=== PATIENT | female | born 1960 | race Caucasian/White ===

== ENCOUNTER → 2020-07-23 16:22 | Outpatient (BNVA) | payer OTHER, SELFPAY | PROVIDERS: PCP Internal Medicine; Referring Provider Internal Medicine; Visit Provider Internal Medicine Gastroenterology | DX: Z13.89 Encounter for screening for other disorder (principal) ==

== ENCOUNTER 2020-09-17 14:51 | Outpatient (REF) | payer OTHER, SELFPAY ==
[2020-09-17 18:23] LABS: COVID-19 Test Negative (Negative)
== END 2020-09-17 14:52 | disposition home or self-care (01) ==
LOC: HO.EMPCOV 14:51
PROVIDERS: PCP Internal Medicine; Visit Provider Internal Medicine
DX: Z20.828 Contact with and (suspected) exposure to other viral communicable diseases (principal)
CPT/HCPCS: 87635; C9803

== ENCOUNTER 2020-09-25 13:17 | Outpatient (REF) | payer OTHER, SELFPAY ==
[2020-09-25 13:49] LABS: COVID-19 Test Negative (Negative)
== END 2020-09-25 13:18 | disposition home or self-care (01) ==
LOC: HO.EMPCOV 13:17
PROVIDERS: Visit Provider Internal Medicine
DX: Z20.828 Contact with and (suspected) exposure to other viral communicable diseases (principal)
CPT/HCPCS: 87635; C9803

== ENCOUNTER → 2020-10-01 09:37 | Outpatient (BNVA) | payer OTHER, SELFPAY | PROVIDERS: PCP Internal Medicine; Visit Provider Orthopaedic Surgery | DX: M72.0 Palmar fascial fibromatosis [Dupuytren] (principal) | CPT/HCPCS: 99202 ==

== ENCOUNTER 2020-10-15 14:04 | Outpatient (REF) | payer OTHER, SELFPAY ==
[2020-10-15 14:27] LABS: COVID-19 Test Negative (Negative)
== END 2020-10-15 14:05 | disposition home or self-care (01) ==
LOC: HO.EMPCOV 14:04
PROVIDERS: Visit Provider Internal Medicine
DX: Z20.822 Contact with and (suspected) exposure to COVID-19 (principal)
CPT/HCPCS: 36415; 87635; C9803

== ENCOUNTER 2020-10-17 13:56 | Outpatient (REF) | payer OTHER, SELFPAY ==
[2020-10-17 14:13] LABS: COVID-19 Test Negative (Negative)
== END 2020-10-17 13:57 | disposition home or self-care (01) ==
LOC: HO.LAB 13:56
PROVIDERS: Visit Provider Internal Medicine
DX: Z20.822 Contact with and (suspected) exposure to COVID-19 (principal)
CPT/HCPCS: 36415; 87635; C9803

== ENCOUNTER 2020-10-22 10:32 | Emergency (ER) | payer OTHER, SELFPAY ==
[2020-10-22 10:43] VITALS: PULSE 100; RESP 17; TEMP 36.6; O2SAT 99; BMI 30.7
[2020-10-22 10:50] VITALS: BP 183/93
--- NOTE | 2020-10-22 11:15 | CT_ITS ---
EXAMINATION: CT ABDOMEN AND PELVIS WITH CONTRAST CLINICAL INFORMATION: Left-sided pain and bloating. Evaluate for diverticulitis. COMPARISON: Previous CT scan of the abdomen and pelvis October [address] colonoscopy January 2020 TECHNIQUE: Multidetector volumetric images were obtained from the superior aspect of the liver through the pubic symphysis following administration 85 mL of Omnipaque 350 intravenous contrast. Sagittal and coronal reformatted images were obtained on the technologist's workstation. Oral contrast: Yes This CT examination was performed using dose optimization techniques as appropriate, variously including the following: *Automated exposure control *Adjustment of mA and/or kV according to patient size (this includes techniques or standardized protocols for targeted exams where dose is matched to indication/reason for exam; i.e. extremities or head) *Use of iterative reconstruction technique DLP: 706 mGy-cm FINDINGS: LUNG BASES: The visualized lung bases are unremarkable. LIVER, GALLBLADDER, AND BILIARY TREE: The liver is low in attenuation suggestive of fatty infiltration. No focal liver lesion is seen. PANCREAS: Unremarkable. SPLEEN: Unremarkable. ADRENAL GLANDS: Unremarkable. KIDNEYS AND URETERS: There is a low-attenuation lesion in the upper pole the left kidney probably representing a cyst. The kidneys are otherwise unremarkable. BLADDER: Not optimally distended. GASTROINTESTINAL TRACT: There is diverticulosis of the colon. There is wall thickening of the sigmoid colon questionable for mild diverticulitis. No evidence of obstruction, perforation or abscess is seen. Small and large bowel is otherwise unremarkable. The appendix is unremarkable. ABDOMINAL WALL: No significant hernia is appreciated. LYMPH NODES: Normal. VASCULAR: Unremarkable. PELVIC VISCERA: The uterus is been removed. No pelvic mass is seen. OSSEOUS STRUCTURES: There are degenerative changes of the spine. CT/CT abdomen pelvis w con IMPRESSION: Diverticulosis and question mild sigmoid diverticulitis. Fatty liver. Small left renal cyst.
--- NOTE | 2020-10-22 11:15 | ECG_ITS ---
Test Reason : HTN Blood Pressure : / mmHG Vent. Rate : 087 BPM Atrial Rate : 087 BPM P-R Int : 154 ms QRS Dur : 082 ms QT Int : 384 ms P-R-T Axes : 032 000 -08 degrees QTc Int : 462 ms Normal sinus rhythm Nonspecific T wave abnormality Prolonged QT Abnormal ECG When compared with ECG of 10-OCT-2019 11:42, T wave inversion more evident in Inferior leads T wave inversion now evident in Anterior leads Referred By: Sandra Campo Electronically Signed By:Timothy Young
--- NOTE | 2020-10-22 11:16 | XR_ITS ---
EXAMINATION: XR CHEST CLINICAL INFORMATION: SOB. COMPARISON: None TECHNIQUE: Frontal view of the chest was obtained. FINDINGS: No significant abnormality is noted involving the heart, lungs, mediastinum, bony thorax or soft tissues. XR/XR chest 1V IMPRESSION: Unremarkable chest examination.
[2020-10-22 11:54] VITALS: RESP 16
[2020-10-22] MEDS: Morphine Sulfate 4 MG/ML CARTRIDGE 2 MG IVPUSH (11:54)
[2020-10-22] MEDS: 0.9 % Sodium Chloride 1,000 ML 999 ML IVCONT (11:55)
[2020-10-22] MEDS: ondansetron HCL 4 MG/2 ML VIAL IVPUSH (11:55)
[2020-10-22 12:00] LABS: MANUAL DIFF FLAG NO
[2020-10-22 12:01] LABS: Basophils Percent Auto 0.5 % (0-2); Eosinophils Absolute Auto 0.1 X10*3/uL (0.0-0.4); Eosinophils Percent Auto 1.6 % (0-4); Hematocrit 49.6 % (37-47); Hemoglobin 16.6 g/dl (12.0-16.0); Imm Gran Abs Auto 0.02 X10*3/uL (0.00-0.03); Imm Gran Pct Auto 0.3 % (0.0-0.4); Lymphocytes Absolute Auto 1.7 X10*3/uL (1.2-4.9); Mean Corpuscular HGB Conc 33.5 g/dl (31.0-35.0); Mean Corpuscular Volume 89.7 fL (80-98); Monocytes Absolute Auto 0.4 X10*3/uL (0.1-1.2); Monocytes Percent Auto 7.1 % (2-11); Neutrophils Absolute Auto 3.9 X10*3/uL (2.0-8.3); Neutrophils Percent Auto 63.5 % (45-73); Platelet Count 205 X10*3/uL (160-400); Red Blood Count 5.53 X10*6/uL (4.20-5.50); Red Cell Distribution Width 12.6 % (11.0-16.0); White Blood Count 6.2 X10*3/uL (4.8-10.8)
--- NOTE | 2020-10-22 12:09 | ED_ITS ---
HPI - General Adult General Chief complaint: General Medical Stated complaint: covid symptoms Time Seen by Provider: 10/22/20 10:55 Source: patient Mode of arrival: ambulatory History of Present Illness HPI narrative: 59-year-old female with a past medical history of cervical CA, diverticulosis/diverticulitis, GERD, hysterectomy, PUD, appendectomy presenting to the ED complaining of generalized fatigue/weakness, low-grade fever, sore thr oat, headache, fatigue/myalgias x1 week. Now reports upper abdominal discomfort/bloating and anorexia x4 days. Admits abdominal symptoms feel similar to prior diverticulitis. Admits recently tested negative for COVID-19 on Thursday and Thursday last week. Denies chest pain, dysuria/hematuria, buddy sea/vomiting, diarrhea Onset (ago): week(s) Related Data Home Medications Medication Instructions Recorded Confirmed Lactobacillus rhamnosus GG 10 1 cap PO DAILY 07/23/20 07/23/20 billion cell capsule simethicone 80 mg chewable tablet 80 mg PO TID-QID PRN 07/23/20 07/23/20 Previous Rx's Medication Instructions Recorded doxycycline hyclate 100 mg capsule 100 mg PO Q12H #14 cap 07/16/20 dicyclomine 10 mg capsule 10 mg PO BID #60 cap 10/16/20 amoxicillin-pot clavulanate 1 tab PO Q12H 7 Days #14 tab 10/22/20 [Augmentin] Allergies Allergy/AdvReac Type Severity Reaction Status Date / Time Compazine Allergy Unknown Unverified 02/10/20 00:00 Doxycycline Allergy Unknown Unverified 02/06/20 00:00 flagyl Allergy Unknown Unverified 02/06/20 00:00 penicillin G Allergy Unknown Verified 02/10/20 00:00 penicillin V Allergy Unknown Unverified 02/06/20 00:00 Penicillins [PENICILLINS] Allergy Unknown hives Unverified 06/14/20 15:37 prochlorperazine Allergy Unknown unknown Unverified 06/14/20 15:37 [From COMPAZINE] Sulfa (Sulfonamide Allergy Unknown swelling Unverified 06/14/20 15:37 Antibiotics) [SULFA (SULFONAMIDE ANTIBIOTICS)] sulfacetamide Allergy Unknown Verified 02/10/20 00:00 levofloxacin [From LEVAQUIN] AdvReac Unknown LEVAQUIN Unverified 06/14/20 15:37 metronidazole [From FLAGYL] AdvReac Unknown ELEVATED Unverified 06/14/20 15:37 LIVER ENZYMES levofloxacin Allergy Unknown anaphylaxis Uncoded 02/06/20 00:00 Review of Systems Review of Systems: Constitutional: No Weight loss, + Fever, + Chills, No Night Sweats, + Fatigue, + Malaise ENT/Mouth: No Hearing loss, No Ear Pain, No Nasal Congestion, + sore throat, No Rhinorrhea Eyes: No Eye Pain, No Swelling, No Redness, No Foreign Body, No Discharge, No Vision Changes Cardiovascular: No Chest Pain, + SOB, No Dyspnea on Exertion Respiratory: No Cough, No Sputum Gastrointestinal: No Nausea, No Vomiting, No Diarrhea, + Constipation, + Abdominal pain Genitourinary: No irregular bleeding, No Dysuria, No Urinary Frequency, No Hematuria Musculoskeletal: No joint pain, No Myalgias, No Joint Swelling Skin: No Skin Lesions, No rash Neuro: +Weakness, No Numbness, +Headache Yes all other systems are reviewed and are negative [facility] Past Medical History Attestation statement: The following information was validated with the patient. Medical History (Updated 10/22/20 @ 14:29 by REBECCA Romero) Allergic rhinitis Cervical cancer (~08/2018) Chronic diarrhea CTS (carpal tunnel syndrome) Diverticulosis GERD (gastroesophageal reflux disease) History of duodenal ulcer Peptic ulcer disease (~2004) Surgical History (Updated 07/23/20 @ 16:25 by Silvia Peralta CMA) H/O: hysterectomy History of colonoscopy Hx of endoscopy S/P appendectomy S/P bilateral breast reduction (~07/2019) Family History Family History (Updated 07/23/20 @ 16:27 by Silvia Peralta CMA) Father Family history of Alzheimer's disease Mother History of high blood pressure History of depression Social History Social History (Updated 10/01/20 @ 09:49 by Nevaeh Johnson CMA) Alcohol intake: current Alcohol intake frequency: does not drink Smoking Status: Former smoker Use of substances other than those prescribed or required for medical reasons: No Advance Directives: No Advance Directives Information Provided: No Current occupational status: employed Current occupation: [employer] - Right [employer] Physical Exam Vital Signs: Vital Signs: Last Vital Signs Temp 98 F 10/22/20 10:43 Pulse 90 10/22/20 13:41 Resp 16 10/22/20 13:41 BP 136/81 10/22/20 13:41 Pulse Ox 98 10/22/20 13:42 Body Mass Index 30.7 Const: General: cooperative, healthy appearing, comfortable and no acute distress Orientation/consciousness: patient oriented x3 Limitations: no limitations HENMT: Head: Yes normal to inspection Ears: hearing grossly normal bilaterally General nose exam: Normal external nose present Face and sinus: Yes normal facial exam Eyes: General: appearance normal, both eyes and all related structures EOM: EOMs intact bilaterally Neck: Neck: Yes normal visual inspection and Yes no meningeal signs Resp: Effort & Inspection: normal respiratory effort Auscultation: clear to auscultation bilaterally, no rales, no rhonchi and no wheezes Cardio: Rate: regular rate Heart sounds: S1 normal heart sound present and S2 normal heart sound present GI: Inspection: Yes normal to inspection Palpation (GI): Soft to palpation, Tenderness to palpation present (GI) in the epigastrum, in the LLQ and in the LUQ, no guarding and not rigid : General: Yes no CVA tenderness Back/Spine/Pelvis: Back: no CVA tenderness Skin: Rashes: no rashes Wounds: no wounds Neuro: General: patient oriented x3 and no meningeal signs Gait exam (Neur o): Normal gait present Extrem: Other: No LE edema or calf tenderness General: Yes normal to inspection Course Course Course Narrative: -one staff member had accidental needlestick while trying to obtain blood work from this patient. Will obtain HIV/hepatitis antibodies. Patient is agreeable XR chest 1V IMPRESSION: Unremarkable chest examination. * Labs and COVID-19/influenza/RSV unremarkable CT abdomen pelvis w con IMPRESSION: Diverticulosis and question mild sigmoid diverticulitis. Fatty liver. Small left renal cyst >> results discussed with patient including worrisome signs and symptoms and strict return precautions. Patient admits she has taken Augmentin in the past without difficulty/allergic reaction. Due to allergies will DC with Augmentin. Medical Decision Making [facility] Narrative Medical decision making narrative: 59-year-old female with a past medical history of cervical CA, diverticulosis/diverticulitis, GERD, hysterectomy, PUD, appendectomy presenting to the ED complaining of generalized fatigue/weakness, low-grade fever, sore throat, headache, fatigue/myalgias x1 week. Now reports upper abdominal discomfort/bloating and anorexia x4 days. On exam VSS, NAD/nontoxic-appearing, physical exam as above. Concern for viral syndrome/COVID-19 vs dehydration/metabolic abnormalities vs diverticulitis vs ?Pancreatitis vs/constipation. Plan: EKG, labs, UA, CXR, CT abdomen/pelvis, IVF/symptomatic treatment, reassess Lab Data Result diagrams: 10/22/20 11:51 10/22/20 11:51 Labs: Lab Results 10/22/20 10/22/20 10/22/20 Range/Units 11:51 11:51 11:51 WBC 6.2 (4.8-10.8) X10*3/uL RBC 5.53 H (4.20-5.50) X10*6/uL Hgb 16.6 H (12.0-16.0) g/dl Hct 49.6 H (37-47) % MCV 89.7 (80-98) fL MCH 30.0 (27.0-33.0) pg MCHC 33.5 (31.0-35.0) g/dl RDW 12.6 (11.0-16.0) % Plt Count 205 (160-400) X10*3/uL MPV 9.0 L (9.4-12.3) fL Immature Gran % (Auto) 0.3 (0.0-0.4) % Neut % (Auto) 63.5 (45-73) % Lymph % (Auto) 27.0 (20-40) % Mccreary % (Auto) 7.1 (2-11) % Eos % (Auto) 1.6 (0-4) % Baso % (Auto) 0.5 (0-2) % Lymph # (Auto) 1.7 (1.2-4.9) X10*3/uL Mccreary # (Auto) 0.4 (0.1-1.2) X10*3/uL Eos # (Auto) 0.1 (0.0-0.4) X10*3/uL Baso # (Auto) 0.0 (0.0-0.2) X10*3/uL Abs Immat Gran (auto) 0.02 (0.00-0.03) X10*3/uL Absolute Neuts (auto) 3.9 (2.0-8.3) X10*3/uL Absolute Nucleated RBC 0.000 (0.0-0.012) X10*3/uL Nucleated RBC % (auto) 0.0 (0.0-0.2) /100WBC Hold Blue Top Sodium 138 (135-145) mmol/L Potassium 5.0 (3.3-5.1) mmol/l Chloride 104 (96-108) mmol/L Carbon Dioxide 21 L (22-29) mmol/L Anion Gap 18 (12-20) BUN 14 (9-16) mg/dL Creatinine 0.92 (0.5-1.4) mg/dL Estim Creat Clear Calc 71.2 Estimated GFR > 60 Random Glucose 105 (60-115) mg/dL Calcium 9.4 (8.4-10.2) mg/dL Magnesium 2.1 (1.6-2.6) mg/dL Ferritin 138 (10-250) ng/mL Total Bilirubin 0.7 (0.0-1.0) mg/dL Direct Bilirubin 0.2 (0.0-0.5) mg/dL AST 30 (5-31) U/L ALT 25 (0-31) U/L Alkaline Phosphatase 93 (39-117) U/L Lactate Dehydrogenase 273 H (122-220) U/L C-Reactive Protein 0.38 (< or = 0.50) mg/dL Total Protein 7.8 (6.5-8.0) g/dL Albumin 4.6 (3.5-5.0) g/dL Lipase 59 (8-78) U/L Procalcitonin ng/mL Coronavirus (PCR) (Negative) Influenza Type A (PCR) (Negative) Influenza Type B (PCR) (Negative) RSV RNA Qual (PCR) (Negative) 10/22/20 10/22/20 10/22/20 Range/Units 11:51 11:51 12:30 WBC (4.8-10.8) X10*3/uL RBC (4.20-5.50) X10*6/uL Hgb (12.0-16.0) g/dl Hct (37-47) % MCV (80-98) fL MCH (27.0-33.0) pg MCHC (31.0-35.0) g/dl RDW (11.0-16.0) % Plt Count (160-400) X10*3/uL MPV (9.4-12.3) fL Immature Gran % (Auto) (0.0-0.4) % Neut % (Auto) (45-73) % Lymph % (Auto) (20-40) % Mccreary % (Auto) (2-11) % Eos % (Auto) (0-4) % Baso % (Auto) (0-2) % Lymph # (Auto) (1.2-4.9) X10*3/uL Mccreary # (Auto) (0.1-1.2) X10*3/uL Eos # (Auto) (0.0-0.4) X10*3/uL Baso # (Auto) (0.0-0.2) X10*3/uL Abs Immat Gran (auto) (0.00-0.03) X10*3/uL Absolute Neuts (auto) (2.0-8.3) X10*3/uL Absolute Nucleated RBC (0.0-0.012) X10*3/uL Nucleated RBC % (auto) (0.0-0.2) /100WBC Hold Blue Top SEE NOTE Sodium (135-145) mmol/L Potassium (3.3-5.1) mmol/l Chloride (96-108) mmol/L Carbon Dioxide (22-29) mmol/L Anion Gap (12-20) BUN (9-16) mg/dL Creatinine (0.5-1.4) mg/dL Estim Creat Clear Calc Estimated GFR Random Glucose (60-115) mg/dL Calcium (8.4-10.2) mg/dL Magnesium (1.6-2.6) mg/dL Ferritin (10-250) ng/mL Total Bilirubin (0.0-1.0) mg/dL Direct Bilirubin (0.0-0.5) mg/dL AST (5-31) U/L ALT (0-31) U/L Alkaline Phosphatase (39-117) U/L Lactate Dehydrogenase (122-220) U/L C-Reactive Protein (< or = 0.50) mg/dL Total Protein (6.5-8.0) g/dL Albumin (3.5-5.0) g/dL Lipase (8-78) U/L Procalcitonin 0.02 ng/mL Coronavirus (PCR) NEGATIVE (Negative) Influenza Type A (PCR) NEGATIVE (Negative) Influenza Type B (PCR) NEGATIVE (Negative) RSV RNA Qual (PCR) NEGATIVE (Negative) Discharge Plan Discharge Clinical Impression: Diverticulitis of sigmoid colon Patient Disposition: Home, Self-Care Instructions: Diverticulitis (ED) Additional Instructions: You have diverticulitis your sigmoid colon. Augmentin as an antibiotic, take as prescribed. You should practice a clear liquid diet for the next 3 days. Make sure your staying hydrated at home really push the fluids Take Tylenol and Motrin for pain If her symptoms persist or worsen, your unable to eat or drink, high fevers, or pain becomes unbearable return to the ED Follow-up with her GI doctor Prescriptions: New amoxicillin-pot clavulanate [Augmentin] 875-125 mg tablet 1 tab PO Q12H 7 Days Qty: 14 RF: 0 No Action doxycycline hyclate 100 mg capsule 100 mg PO Q12H Qty: 14 RF: 0 dicyclomine 10 mg capsule 10 mg PO BID Qty: 60 RF: 2 simethicone [Gas Relief 80 (simethicone)] 80 mg tablet,chewable 80 mg PO TID-QID PRNRF: 0 Culturelle 10 billion cell capsule 1 cap PO DAILY RF: 0 Referrals: Mynor Bravo MD [Physician] - 5 days
[2020-10-22 12:31] LABS: Lipase 59 U/L (8-78)
[2020-10-22 12:33] LABS: Alanine Aminotransferase 25 U/L (0-31); Albumin Level 4.6 g/dL (3.5-5.0); Alkaline Phosphatase 93 U/L (39-117); Anion Gap 18 (12-20); Aspartate Amino Transferase 30 U/L (5-31); Bilirubin Direct 0.2 mg/dL (0.0-0.5); Bilirubin Total 0.7 mg/dL (0.0-1.0); Blood Urea Nitrogen 14 mg/dL (9-16); C Reactive Protein 0.38 mg/dL (< or = 0.50); Calcium 9.4 mg/dL (8.4-10.2); Carbon Dioxide 21 mmol/L (22-29); Chloride 104 mmol/L (96-108); Creatinine Clr Calc Pharmacy 71.2; Estimated Glomerular Filt Rate > 60; Glucose Random 105 mg/dL (60-115); Lactate Dehydrogenase 273 U/L (122-220); Magnesium 2.1 mg/dL (1.6-2.6); Sodium 138 mmol/L (135-145); Total Protein 7.8 g/dL (6.5-8.0)
--- NOTE | 2020-10-22 12:42 | PC.NURSE ---
22 ga iv established lla approx 1200 pt reports pain is better it took the edge off pt states i usually get a few doses when this happens pt has no abd guarding or facial grimace. awaiting ct.
[2020-10-22 12:53] LABS: Ferritin 138 ng/mL (10-250)
[2020-10-22 12:54] LABS: Procalcitonin 0.02 ng/mL
[2020-10-22 12:57] LABS: Influenza A PCR NEGATIVE (Negative); Influenza B PCR NEGATIVE (Negative); Resp Syncy Virus RNA Qual PCR NEGATIVE (Negative); SARS COV2 PCR INHOUSE NEGATIVE (Negative)
[2020-10-22] MEDS: iohexoL 350 MG/ML 100 ML INFUS..BTL 85 ML IV (13:11)
[2020-10-22] MEDS: Morphine Sulfate 2 MG/ML CARTRIDGE IVPUSH (13:39)
[2020-10-22] MEDS: Metoclopramide HCl 10 MG/2 ML VIAL IVPUSH (13:40)
[2020-10-22 13:41] VITALS: BP 136/81; PULSE 90; RESP 16; O2SAT 98
[2020-10-22 13:42] VITALS: PULSE 89; O2SAT 98
[2020-10-22 14:25] LABS: HBc Num1 0.11 S/CO (0.00-0.79); HBsAGNum1 0.18 S/CO (0.00-0.99); Hepatitis B Core Antibody Nonreactive (Nonreactive); Hepatitis B Surface Antigen Negative (Negative); ~HepC Num1 0.18 S/CO (0.00-0.79); ~Hepatitis C Antibody Nonreactive (Nonreactive)
[2020-10-22 14:26] LABS: HIV AB/AG Nonreactive (Nonreactive); HIV Num 1 0.07 S/CO (0.00-0.99)
== END 2020-10-22 14:50 | disposition home or self-care (01) ==
PROVIDERS: Physician Assistant; Emergency Provider Internal Medicine; PCP Internal Medicine
DX: K57.32 Diverticulitis of large intestine without perforation or abscess without bleeding (principal); Z20.822 Contact with and (suspected) exposure to COVID-19; Z85.41 Personal history of malignant neoplasm of cervix uteri; K21.9 Gastro-esophageal reflux disease without esophagitis
CPT/HCPCS: 0241U; 36415; 71045; 74177; 80048; 80076; 82728; 83615; 83690; 83735; 84145; 85025; 86140; 86704; 86803; 87340; 87389; 93005; 96361; 96374; 96375; 96376; 99285; J2270; J2405; J2765; Q9967

== ENCOUNTER 2020-11-28 15:53 | Outpatient (REF) | payer OTHER, SELFPAY ==
--- NOTE | ~2020-11-28 | MM_ITS ---
EXAMINATION: MM SCREENING DIGITAL BREAST TOMOSYNTHESIS, BILATERAL CLINICAL INFORMATION: Screening. Asymptomatic. The lifetime risk of breast cancer based on the Tyrer-Cuzick Model is 12.9%. COMPARISON: Mammography: November 28, 2019 and studies dating back to October 19, 2018 TECHNIQUE: Digital breast tomosynthesis is performed in both the craniocaudal and mediolateral oblique views along with computer-aided detection (CAD). Synthesized 2D images are generated from the tomosynthesis. FINDINGS: There are scattered areas of fibroglandular density (ACR BI-RADS breast composition Category b). No new abnormal dominant mass or suspicious grouping of microcalcifications identified. Bilateral regions of scarring related to breast reduction surgery again seen. MM/MM tomosynthesis screening BI IMPRESSION: There are no significant changes from prior study. ASSESSMENT: BI-RADS 2: Benign RECOMMENDATION: Routine annual mammography screening. This patient's information was entered into a reminder system with a target due date for their next mammogram.
== END 2020-11-28 15:54 | disposition home or self-care (01) ==
LOC: HO.MAMMO 15:53
PROVIDERS: PCP Internal Medicine; Visit Provider Internal Medicine
DX: Z12.31 Encounter for screening mammogram for malignant neoplasm of breast (principal)
CPT/HCPCS: 77063; 77067

== ENCOUNTER 2021-11-29 13:46 | Outpatient (REF) | payer OTHER, SELFPAY ==
[2021-11-30 06:22] LABS: CT PCR NOT DETECTED (Not Detect.); NG PCR NOT DETECTED (Not Detect.)
== END 2021-11-29 13:47 | disposition home or self-care (01) ==
LOC: HO.LAB 13:46
PROVIDERS: PCP Nurse Practitioner Acute Care; Visit Provider Advanced Practice Midwife
DX: Z01.411 Encounter for gynecological examination (general) (routine) with abnormal findings (principal); N94.9 Unspecified condition associated with female genital organs and menstrual cycle; R39.89 Other symptoms and signs involving the genitourinary system
CPT/HCPCS: 87491; 87591

== ENCOUNTER → 2021-12-09 10:14 | Outpatient (BNVA) | payer OTHER, SELFPAY | PROVIDERS: PCP Nurse Practitioner Acute Care; Visit Provider Internal Medicine Gastroenterology | DX: K57.90 Diverticulosis of intestine, part unspecified, without perforation or abscess without bleeding (principal) | CPT/HCPCS: 99212 ==

== ENCOUNTER 2021-12-11 14:35 | Outpatient (REF) | payer OTHER, SELFPAY ==
--- NOTE | ~2021-12-11 | US_ITS ---
EXAMINATION: US PELVIS CLINICAL INFORMATION: Pelvic pressure. COMPARISON: CT abdomen and pelvis 10/22/2020. TECHNIQUE: Ultrasound of the pelvis is performed using both transabdominal and transvaginal transducers along with Doppler. Transvaginal imaging is performed due to inadequate visualization transabdominally. FINDINGS: Uterus: Surgically absent. Adnexa: The left ovary is not seen. The right ovary appears normal measuring 1.0 x 0.6 x 0.9 cm for a volume of 0.3 mL. No free fluid is present in the cul-de-sac. US/US pelvic and transvaginal IMPRESSION: No significant abnormality is detected. The left ovary is not seen and the uterus has been surgically removed.
== END 2021-12-11 14:36 | disposition home or self-care (01) ==
LOC: HO.HMGCX 14:35
PROVIDERS: PCP Internal Medicine; Visit Provider Obstetrics & Gynecology
DX: R39.89 Other symptoms and signs involving the genitourinary system (principal)
CPT/HCPCS: 76830; 76856

== ENCOUNTER 2023-04-29 08:00 | Outpatient (AMB) | payer OTHER, SELFPAY ==
--- NOTE | 2023-04-29 07:56 | MHC.OFFWIV ---
Intake Vital Signs 04/29/23 08:03 BP 136/82 Blood Pressure Location Rt brachial Position Sitting Pulse 95 Pulse Source Pulse Oximeter Temp 98.6 F Temp Source Oral Pulse Oximetry (%) 96 Oxygen Delivery Method Room Air Intake Visit Reasons: EST/uti Patient Tobacco Use Status: Never used Tobacco Allergies doxycycline Allergy (Unknown, Verified 04/29/23 08:05) Unknown metronidazole [From Flagyl] Allergy (Unknown, Verified 04/29/23 08:05) Elevated liver enzymes penicillin G Allergy (Unknown, Verified 04/29/23 08:05) Unknown penicillin V Allergy (Unknown, Verified 04/29/23 08:05) Unknown Penicillins [PENICILLINS] Allergy (Unknown, Verified 04/29/23 08:05) Hives prochlorperazine [From Compazine] Allergy (Unknown, Verified 04/29/23 08:05) Unknown levofloxacin [From Levaquin] Adverse Reaction (Unknown, Verified 04/29/23 08:05) Unknown sulfacetamide Adverse Reaction (Unknown, Verified 04/29/23 08:05) Unknown HPI HPI Comments History of Present Illness Details [id number] 62-year-old female history of GERD, peptic ulcer disease, diverticulitis presents with UTI symptoms for a few days worsening. Patient has been taking [id number] azo with little to no relief. She reports urinary frequency, urgency, dysuria. Patient tells me that this feels like her typical UTI. Denies fevers, chills, flank pain, nausea, vomiting, abdominal pain, chest pain, shortness of breath. Physical exam benign Likely UTI versus cystitis. Unlikely pyelonephritis, sepsis. No signs of obstructing uropathy. No signs of acute abdomen. Will discharge with Bactrim. Educated patient on diagnosis and treatment plan, answered all question, patient verbalizes understanding. At this time patient will be discharged home, advised to return with new or worsening symptoms. Educated on worrisome signs and symptoms and when to return. At this time I feel comfortable discharge home. [facility] Medical History Allergic rhinitis Cervical cancer (~08/2018) Chronic diarrhea CTS (carpal tunnel syndrome) Diverticulosis GERD (gastroesophageal reflux disease) History of duodenal ulcer Peptic ulcer disease (~2004) Surgical History H/O: hysterectomy History of colonoscopy Hx of endoscopy S/P appendectomy S/P bilateral breast reduction (~07/2019) Family History Father Family history of Alzheimer's disease Mother History of high blood pressure History of depression Social History Housing: House Alcohol intake: current Alcohol intake frequency: holidays/special occasions only Patient Tobacco Use Status: Never used Tobacco Second Hand Smoke Exposure: Yes Current occupational status: employed Cognitive needs: No Hearing needs: No Vision needs: No Female Reproductive History Menstrual Age of Menarche: 10 Review of Systems Const Details: Constitutional : No Weight loss, No Fever, No Chills, No Fatigue, No Malaise ENT/Mouth : No sore throat, No Rhinorrhea Eyes: No Eye Pain, No Swelling, No Redness Cardiovascular : No Chest Pain, No SOB, No Dyspnea on Exertion, No Orthopnea, No Edema, No Palpitations Respiratory : No Cough, No Sputum, No Wheezing Gastrointestinal : No Nausea, No Vomiting, No Diarrhea, No Constipation, No abdominal Pain, No Hematochezia, No Melena Genitourinary : No Dysuria, No Urinary Frequency, No Hematuria, Musculoskeletal : No joint pain, No Myalgias, No Joint Swelling Skin : No Skin Lesions, No rash Neuro : No Weakness, No Numbness, No Dizziness, No Headache Psych : No Anxiety/Panic, No Depression All other systems reviewed and are negative All systems reviewed & are unremarkable except as noted in HPI and below Physical Exam Vital Signs: Last Vital Signs Temp 98.6 F 04/29/23 08:03 Pulse 95 04/29/23 08:03 BP 136/82 04/29/23 08:03 Pulse Ox 96 04/29/23 08:03 Oxygen Delivery Method Room Air 04/29/23 08:03 vss Appearance: Alert.? Oriented X3.? No acute distress.? Head: Normocephalic, atraumatic, no step-offs or deformities Eyes: Pupils equal, round and reactive to light.? ENT: Pharynx normal.? Neck: Normal inspection.? Neck supple.? CVS: Normal heart rate and rhythm.? Pulses normal.? Respiratory: No respiratory distress.? Breath sounds normal.? Abdomen: Soft and nontender.? Skin: Skin warm and dry.? Normal skin color.? Normal skin turgor.? Extremities: No lower extremity edema.? No calf ttp. 5/5 strength to bilateral upper and lower extremities Back: No CVA tenderness bilaterally Neuro: Oriented X 3.? No motor deficit.? No sensory deficit. CN 2-12 intact Assessment & Plan Assessment & Plan (1) Urinary tract infection: Code(s): N39.0 - Urinary tract infection, site not specified Plan Take your medications as prescribed. If you were prescribed antibiotics today, it is important that you take your medication to their entirety, do not skip any doses, do not finish them early. Follow-up with your primary care provider this week. Return to the emergency department with new or worsening symptoms. Such as fevers, chills, chest pain, shortness of breath, nausea, vomiting, dizziness, headache, vision changes, lethargy In case of emergency call 911 Medications: New cefuroxime axetil 250 mg PO BID 14 tabs 0RF 7 days Coding Level of Care Code Est Pt Level 3 (10876) Diagnoses Urinary tract infection N39.0
[2023-04-29 08:03] VITALS: BP 136/82; PULSE 95; TEMP 37; O2SAT 96
== END 2023-04-29 08:20 | disposition home or self-care (01) ==
PROVIDERS: PCP Internal Medicine; Visit Provider Physician Assistant
DX: N39.0 Urinary tract infection, site not specified (principal); Z13.9 Encounter for screening, unspecified
CPT/HCPCS: 81003; 99213

== ENCOUNTER 2023-05-22 08:23 | Outpatient (AMB) | payer OTHER, SELFPAY ==
--- NOTE | 2023-05-22 09:32 | MHC.OFFWIV ---
Intake Vital Signs 05/22/23 09:38 Weight 199 lb BP 120/90 H Blood Pressure Location Rt brachial Position Sitting Pulse 76 Pulse Source Pulse Oximeter Temp 98.2 F Temp Source Oral Pulse Oximetry (%) 98 Oxygen Delivery Method Room Air Intake Visit Reasons: EP, Anxiety and UTI? [phone] Intake Note: Patient here as she has been having work stress and her anxiety has been very bad. she is has also been having UTI symptoms such as burning, pressure which all started this morning. Patient Tobacco Use Status: Never used Tobacco Allergies doxycycline Allergy (Unknown, Verified 05/22/23 10:16) Unknown metronidazole [From Flagyl] Allergy (Unknown, Verified 05/22/23 10:16) Elevated liver enzymes penicillin G Allergy (Unknown, Verified 05/22/23 10:16) Unknown penicillin V Allergy (Unknown, Verified 05/22/23 10:16) Unknown Penicillins [PENICILLINS] Allergy (Unknown, Verified 05/22/23 10:16) Hives prochlorperazine [From Compazine] Allergy (Unknown, Verified 05/22/23 10:16) Unknown levofloxacin [From Levaquin] Adverse Reaction (Unknown, Verified 05/22/23 10:16) Unknown sulfacetamide Adverse Reaction (Unknown, Verified 05/22/23 10:16) Unknown Medication List - Last Reconciled 05/22/23 by Thomas Jacome MD dicyclomine 10 mg PO BID esomeprazole magnesium (Nexium) 40 mg PO DAILY fexofenadine (Dunia Allergy) 60 mg PO BID Lactobacillus rhamnosus GG (Culturelle) 1 cap PO DAILY vitamin B complex (B Complex-Vitamin B12 tablet) 1 tab PO DAILY Do you need a note to return to daycare/school/sports/work: Yes HPI EP, Anxiety and UTI? [phone] HPI Details 62-year-old female presents to the office for a sick visit. Patient is reporting symptoms of anxiety and needs assistance. 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 She would like to get some medications till she sees her primary care provider. Woke up with this morning with a bladder infection. Increased density and urgency. [facility] Medical History Allergic rhinitis Cervical cancer (~08/2018) Chronic diarrhea CTS (carpal tunnel syndrome) Diverticulosis GERD (gastroesophageal reflux disease) History of duodenal ulcer Peptic ulcer disease (~2004) Surgical History H/O: hysterectomy History of colonoscopy Hx of endoscopy S/P appendectomy S/P bilateral breast reduction (~07/2019) Family History Father Family history of Alzheimer's disease Mother History of high blood pressure History of depression Social History Housing: House Alcohol intake: current Alcohol intake frequency: holidays/special occasions only Patient Tobacco Use Status: Never used Tobacco Second Hand Smoke Exposure: Yes Current occupational status: employed Cognitive needs: No Hearing needs: No Vision needs: No Female Reproductive History Menstrual Age of Menarche: 10 Physical Exam Vital Signs: Last Vital Signs Temp 98.2 F 05/22/23 09:38 Pulse 76 05/22/23 09:38 BP 120/90 H 05/22/23 09:38 Pulse Ox 98 05/22/23 09:38 Oxygen Delivery Method Room Air 05/22/23 09:38 Const General: cooperative and healthy appearing Nutritional Appearance: well nourished Orientation/consciousness: patient oriented x3 Limitations: no limitations HEENT Head: Yes normal to inspection Eyes General: appearance normal, both eyes and all related structures Neck Neck: Yes normal visual inspection Chest Chest palpation & inspection: normal palpation of entire chest wall Resp Effort & Inspection: normal respiratory effort Neuro General: patient oriented x3 Results AMB Urinalysis, Automated UA Leukoctes 0 Rukhsana/uL Last Edit by SOLO Mcelroy on 05/22/23 09:55 UA Nitrite Negative Last Edit by SOLO Mcelroy on 05/22/23 09:55 UA Urobilinogen 0.2 mg/dL Last Edit by SOLO Mcelroy on 05/22/23 09:55 UA Protein 0 mg/dL Last Edit by SOLO Mcelroy on 05/22/23 09:55 UA pH 6.0 Last Edit by SOLO Mcelroy on 05/22/23 09:55 UA Blood 0 Shin/uL Last Edit by [facility], [facility] on 05/22/23 09:55 UA Specific [place] 1.015 Last Edit by Wandy-Merary [facility], [facility] on 05/22/23 09:55 UA Ketone Negative [facility] on 05/22/23 09:55 UA Bilirubin 0 mg/dL Last Edit [facility] on 05/22/23 09:55 UA Glucose 0 mg/dL Last [facility] on 05/22/23 09:55 Results Reviewed Results Reviewed: Laboratory Last Values Urine pH (Auto) 6.0 05/22/23 09:54 Specific [place] (Auto) 1.015 05/22/23 09:54 Urine Protein (Auto) 0 mg/dL 05/22/23 09:54 Glucose (UA)(Auto) 0 mg/dL 05/22/23 09:54 Urine Ketones (Auto) Negative 05/22/23 09:54 Urine Blood (Auto) 0 Shin/uL 05/22/23 09:54 Urine Nitrite (Auto) Negative 05/22/23 09:54 Urine Bilirubin (Auto) 0 mg/dL 05/22/23 09:54 Urine Urobilinogen (Auto) 0.2 mg/dL 05/22/23 09:54 Leukocyte Esterase (Auto) 0 Rukhsana/uL 05/22/23 09:54 Assessment & Plan Assessment & Plan (1) Urinary tract infection: Code(s): N39.0 - Urinary tract infection, site not specified Plan: Take antibiotics and Pyridium as directed. Increase fluid intake. If symptoms of burning persist, new onset of fever or lower back pain, to follow-up at the clinic. (2) Anxiety: Code(s): F41.9 - Anxiety disorder, unspecified Plan: Ativan added to the regimen. Patient was advised to make an appointment with Dr. Rangel as soon as possible. Orders: Orders AMB Urinalysis Automated Today Z13.9 - Encounter for screening, unspecified Coding Level of Care Code Est Pt Level 4 (91616) Diagnoses Urinary tract infection N39.0 Anxiety F41.9
[2023-05-22 09:38] VITALS: BP 120/90; PULSE 76; TEMP 36.8; O2SAT 98
== END 2023-05-22 10:11 | disposition home or self-care (01) ==
PROVIDERS: PCP Internal Medicine; Visit Provider Internal Medicine
DX: N39.0 Urinary tract infection, site not specified (principal); F41.9 Anxiety disorder, unspecified; R30.9 Painful micturition, unspecified
CPT/HCPCS: 81003; 99214

== ENCOUNTER 2023-07-31 13:57 | Outpatient (REF) | payer OTHER, SELFPAY | END 2023-07-31 13:58 | disposition home or self-care (01) | LOC: HO.MAMMO 13:57 | PROVIDERS: PCP Internal Medicine; Visit Provider Internal Medicine | DX: Z13.89 Encounter for screening for other disorder (principal) ==

== ENCOUNTER 2023-08-01 09:14 | Outpatient (REF) | payer OTHER, SELFPAY ==
--- NOTE | ~2023-08-01 | MM_ITS ---
EXAMINATION: MM SCREENING DIGITAL BREAST TOMOSYNTHESIS, BILATERAL CLINICAL INFORMATION: Screening. Asymptomatic. The patient is status post bilateral breast reduction. COMPARISON: Mammography: This study is compared with prior exams dating back to 2019. TECHNIQUE: Digital breast tomosynthesis is performed in both the craniocaudal and mediolateral oblique views along with computer-aided detection (CAD). Synthesized 2D images are generated from the tomosynthesis. FINDINGS: There are scattered areas of fibroglandular density (ACR BI-RADS breast composition Category b). There are no significant masses, abnormal calcifications, or other abnormalities. Post reduction changes are present in each breast. MM/MM tomosynthesis screening BI IMPRESSION: No mammographic evidence of malignancy. ASSESSMENT: BI-RADS BI-RADS 1 - Negative RECOMMENDATION: Routine annual mammography screening. 1 year F/U This examination should not preclude the clinical evaluation of a suspicious palpable abnormality. This patient's information was entered into a reminder system with a target due date for their next mammogram.
== END 2023-08-01 09:15 | disposition home or self-care (01) ==
LOC: HO.MAMMO 09:14
PROVIDERS: Visit Provider Internal Medicine
DX: Z12.31 Encounter for screening mammogram for malignant neoplasm of breast (principal)
CPT/HCPCS: 77063; 77067

== ENCOUNTER → 2023-08-01 09:15 | Outpatient (BNV) | payer OTHER, SELFPAY | PROVIDERS: Visit Provider Radiology Diagnostic Radiology | DX: Z12.31 Encounter for screening mammogram for malignant neoplasm of breast (principal) | CPT/HCPCS: 77063; 77067 ==

== ENCOUNTER 2024-01-22 10:44 | Outpatient (AMB) | payer OTHER, SELFPAY ==
--- NOTE | 2024-01-22 11:00 | MHC.OFFVIS ---
Vital Signs 01/22/24 11:01 Height 5 ft 4 in Weight 152 lb 1.903 oz BMI 26.1 BP 149/70 H Blood Pressure Location Lt brachial Position Sitting Pulse 82 Intake Visit Reasons: Recurrent Diverticulitis Intake Note: Beti presents in the office as a follow up for recurrent diverticulitis. CC: She wants to talk to you about starting mesalamine. Counselor/Art Therapist Required: No Allergies doxycycline Allergy (Unknown, Verified 01/22/24 11:01) Unknown metronidazole [From Flagyl] Allergy (Unknown, Verified 01/22/24 11:) Elevated liver enzymes penicillin G Allergy (Unknown, Verified 01/22/24 11:) Unknown penicillin V Allergy (Unknown, Verified 01/22/24 11:) Unknown Penicillins [PENICILLINS] Allergy (Unknown, Verified 01/22/24 11:) Hives prochlorperazine [From Compazine] Allergy (Unknown, Verified 01/22/24 11:) Unknown levofloxacin [From Levaquin] Adverse Reaction (Unknown, Verified 01/22/24 11:) Unknown sulfacetamide Adverse Reaction (Unknown, Verified 01/22/24 11:01) Unknown HPI HPI Recurrent Diverticulitis: Details: 61 yr old f with hx fo GERD, allergies, dupuytrens contracture, cervical cancer, appendectomy, diverticulitis here for f/u RECAP: 4 weeks ago she had flu like illness, the following week she went to the ED, COVID was neg (she is vaccinated) she had lower abdominal pain, around her scar tissue she had CT scan with mild diverticulitis she had urine sx and pressure she has left lower back pain which persists she had nausea and emesis at the time but now the nausea is improved she was given IV ABX and d/c with PO ABX and zofran she has been taking bentyl which helps her pains she is getting pelvic u/s she has been on gluten free diet and non dairy diet CT HERE 2020--Diverticulosis and question mild sigmoid diverticulitis. Fatty liver. Small left renal cyst. EGD/Colonoscopy 2019--Dr Bravo: tortuous esophagus fundic gland polyps severe diverticulosis, sharp turn left colon, CTC then done--no colonic masses, ?small polyps INTERIM: she has been doing well she needs another colonoscopy several ppl at work were sick, several weeks ago she also had rx for UTI --pos culture rx with bactrim she has noted rectal pressure she has suprapubic pain and cramping she denies constipation, or diarrhea can be worse with food or fluids she denies dysuria, or urine freq she has hard time pushing out stool EXAM: GENERAL: The patient is well developed and nontoxic. VITAL SIGNS:see workflow HEENT: Nonicteric sclerae, PERRLA, EOMI. Oropharynx clear. Moist mucous membranes. Conjunctivae appear well perfused. No thyroid mass. CHEST: Chest wall is nontender. HEART: Regular rate and rhythm without murmurs. LUNGS: Clear to auscultation bilaterally. ABDOMEN: Soft, positive bowel sounds, tender suprapubic area, no organomegaly.no flank tenderness SKIN: No rash, no excessive bruising, petechiae, or purpura. NEUROLOGIC: Cranial nerves II-XII intact without motor/sensory deficit. 1/ DDX; SIBO, smoldering or segmental diverticulitis, pelvic floor dysfunction/rectocele, IBS, CHO intolerance, PLAN: 1/ recheck urine 2/ repeat colonoscopy--sutab 3/ MR defecography 4/ US abdomen PFS Medical History History of duodenal ulcer Diverticulosis Chronic diarrhea Cervical cancer (~08/2018) CTS (carpal tunnel syndrome) Peptic ulcer disease (~2004) Allergic rhinitis GERD (gastroesophageal reflux disease) Surgical History Hx of endoscopy History of colonoscopy S/P bilateral breast reduction (~07/2019) S/P appendectomy H/O: hysterectomy Family History Father Family history of Alzheimer's disease Mother History of high blood pressure History of depression Social History Housing: House Alcohol intake: current Alcohol intake frequency: holidays/special occasions only Patient Tobacco Use Status: Never used Tobacco Second Hand Smoke Exposure: Yes Current occupational status: employed Cognitive needs: No Hearing needs: No Vision needs: No Female Reproductive History Menstrual Age of Menarche: 10 Physical Exam Vital Signs: Last Vital Signs Pulse 82 01/22/24 11:01 BP 149/70 H 01/22/24 11:01 BMI result Body Mass Index 26.1 Assessment & Plan Assessment & Plan (1) Urinary tract infection: Code(s): N39.0 - Urinary tract infection, site not specified Category: Medical Plan: 1/ DDX; SIBO, smoldering or segmental diverticulitis, pelvic floor dysfunction/rectocele, IBS, CHO intolerance, PLAN: 1/ recheck urine 2/ repeat colonoscopy 3/ MR defecography 4/ US abdomen (2) Lower abdominal pain: Code(s): R10.30 - Lower abdominal pain, unspecified Category: Medical Plan: 1/ DDX; SIBO, smoldering or segmental diverticulitis, pelvic floor dysfunction/rectocele, IBS, CHO intolerance, PLAN: 1/ recheck urine 2/ repeat colonoscopy 3/ MR defecography 4/ US abdomen (3) Constipation: Code(s): K59.00 - Constipation, unspecified Category: Medical Plan: 1/ DDX; SIBO, smoldering or segmental diverticulitis, pelvic floor dysfunction/rectocele, IBS, CHO intolerance, PLAN: 1/ recheck urine 2/ repeat colonoscopy 3/ MR defecography 4/ US abdomen Orders: Orders US abdomen complete Today N39.0 - Urinary tract infection, site not specified, R10.30 - Lower abdominal pain, unspecified MR pelvis wo con Today K59.00 - Constipation, unspecified, N39.0 - Urinary tract infection, site not specified, R10.30 - Lower abdominal pain, unspecified UA CC w/rflx Micro + Cult Today R30.0 - Dysuria Medications: New rifaximin 550 mg PO TID 2 weeks 42 tabs 0RF sod sulf-pot chloride-mag sulf 1.479-0.188- 0.225 gram (Sutab) PO PER PKG DIR 24 tabs 0RF Refilled dicyclomine 10 mg PO BID 60 caps 2RF Discontinued sulfamethoxazole-trimethoprim 800-160 mg (Bactrim DS) Discontinued Reason: Patient Completed Course 1 tab PO BID 5 days 10 tabs 0RF lorazepam (Ativan) Discontinued Reason: Patient no longer taking 0.5 mg PO BEDTIME PRN 7 tabs 0RF anxiety phenazopyridine (Pyridium) Discontinued Reason: Patient no longer taking 200 mg PO TID 3 days 9 tabs 0RF Coding Level of Care Code Est Pt Level 4 (70377) Diagnoses Urinary tract infection N39.0 Lower abdominal pain R10.30 Constipation K59.00
[2024-01-22 11:01] VITALS: BP 149/70; PULSE 82; BMI 26.1
== END 2024-01-22 11:43 | disposition home or self-care (01) ==
PROVIDERS: PCP Physician Assistant; Visit Provider Internal Medicine Gastroenterology
DX: N39.0 Urinary tract infection, site not specified (principal); R10.30 Lower abdominal pain, unspecified; K59.00 Constipation, unspecified
CPT/HCPCS: 99214

== ENCOUNTER 2024-01-22 10:44 | Outpatient (REF) | payer OTHER, SELFPAY ==
[2024-01-22 13:32] LABS: Appearance Urine Clear; Color Urine Yellow; Glucose Urine UA Negative (Negative); Leukocyte Esterase Urine Negative (Negative); Nitrite Urine Negative (Negative); PH 5.5 (5.0-9.0); Specific Gravity - Urine 1.025 (1.005-1.025); Urine Blood Negative (Negative); Urine Ketones Trace mg/dL (Negative); Urine Protein Negative (Neg-Trace)
== END 2024-01-22 10:45 | disposition home or self-care (01) ==
LOC: HO.LNP 10:44
PROVIDERS: PCP Physician Assistant; Visit Provider Internal Medicine Gastroenterology
DX: R30.0 Dysuria (principal)
CPT/HCPCS: 81003

== ENCOUNTER 2024-02-04 08:41 | Outpatient (REF) | payer OTHER, SELFPAY ==
--- NOTE | ~2024-02-04 | US_ITS ---
EXAMINATION: US ABDOMEN COMPLETE CLINICAL INFORMATION: Urinary tract infection, site not specified. Lower abdominal pain. COMPARISON: CT abdomen and pelvis 10/22/2020. Ultrasound abdomen 05/12/2019. TECHNIQUE: Real-time imaging of the abdominal viscera. Technically difficult study secondary to body habitus. FINDINGS: PANCREAS: Normal head and body, the tail is obscured by bowel gas ABDOMINAL AORTA: The proximal, mid, and distal segments are normal in caliber. INFERIOR VENA CAVA: Visualized portions are normal. LIVER: The liver is normal in size. The liver contour is normal. There is diffuse increased liver parenchymal echogenicity, consistent with hepatic steatosis. No focal hepatic lesion. There is no intrahepatic biliary duct dilatation seen. Hypoechoic area between the portal vein and gallbladder likely represents focal fatty sparing GALLBLADDER: Normal. The gallbladder is physiologically distended without evidence of stones, sludge, polyps, wall thickening or pericholecystic fluid. COMMON BILE DUCT: Normal in caliber measuring 0.3 cm in diameter. RIGHT KIDNEY: Normal. No hydronephrosis. No renal calculi or focal parenchymal lesions. The kidney measures 10.0 cm in maximum dimension. LEFT KIDNEY: Normal. No hydronephrosis. No renal calculi or focal parenchymal lesions. The kidney measures 9.7 cm in maximum dimension. SPLEEN: Normal. The spleen measures 10.3 cm in maximum dimension. FREE FLUID: None. US/US abdomen complete IMPRESSION: Hepatic steatosis.
== END 2024-02-04 08:42 | disposition home or self-care (01) ==
LOC: HO.US 08:41
PROVIDERS: PCP Internal Medicine; Visit Provider Internal Medicine Gastroenterology
DX: N39.0 Urinary tract infection, site not specified (principal); R10.30 Lower abdominal pain, unspecified
CPT/HCPCS: 76700

== ENCOUNTER 2024-04-28 14:35 | Outpatient (AMB) | payer OTHER, SELFPAY ==
--- NOTE | 2024-04-28 14:39 | A.OFFPC_ITS ---
Vital Signs 04/28/24 14:40 Height 5 ft 4 in Weight 192 lb BMI 33.0 BP 134/86 Blood Pressure Location Lt brachial Position Sitting Pulse 91 Pulse Source Pulse Oximeter Pulse Oximetry (%) 97 Oxygen Delivery Method Room Air Intake Visit Reasons: PE Intake Note: Patient is here today for a physical. 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 Allergies metronidazole [From Flagyl] Allergy (Unknown, Verified 04/28/24 14:44) Elevated liver enzymes penicillin G Allergy (Unknown, Verified 04/28/24 14:44) Unknown penicillin V Allergy (Unknown, Verified 04/28/24 14:44) Unknown Penicillins [PENICILLINS] Allergy (Unknown, Verified 04/28/24 14:44) Hives prochlorperazine [From Compazine] Allergy (Unknown, Verified 04/28/24 14:44) Unknown levofloxacin [From Levaquin] Adverse Reaction (Unknown, Verified 04/28/24 14:44) Unknown sulfacetamide Adverse Reaction (Unknown, Verified 04/28/24 14:44) Unknown Medication List - Last Reconciled 04/28/24 by Rocio Pearson PA-C dicyclomine 10 mg PO BID esomeprazole magnesium (Nexium) 40 mg PO DAILY fexofenadine (Dunia Allergy) 60 mg PO BID rifaximin 550 mg PO TID 2 weeks sod sulf-pot chloride-mag sulf 1.479-0.188- 0.225 gram (Sutab) PO PER PKG DIR Tobacco use date assessed: 04/28/24 Dental Screening Dental Screen Date: 04/28/24 Did you have a dental visit in the last 12 months?: Yes Did you have a dental problem in the last 6 months where you did not have access to dental care?: No Was dental information given to patient?: Patient has dentist HPI PE HPI Details 63-year-old female with past medical his tory of GERD last seen by Dr. Jacome coming in for annual visit.? In review of the notes patient was seen in the walk-in clinic several times for various acute problems.? Mammogram completed 08/01/2023 BI-RADS 1 follow up 1 year.? She has seen [facility] 07/2023 for Dupuytren's contracture.? She was also seen Gastroenterology 12/2023 for recurrent diverticulitis plan to recheck urine, repeat colonoscopy, MR defecography and ultrasound of abdomen.? Ultrasound of the abdomen revealed hepatic steatosis without any other abnormalities.? She was seen in [facility] 04/06/2024 for chest pain workup was negative and patient was discharged home.? Repeat colonoscopy scheduled for 05/12/2024. Today she tells us she has been doing generally well however she is concerned about her more recent diagnosis of fatty liver disease. She states she has tried diet and exercise and has not been able to lose weight as she had hoped. She eats generally well to to her history of IBS and tends to avoid greasy or fried foods. She is interested in trying something for weight loss. She also mentions she has been having bloating in the epigastric area which has been ongoing for some time and typically worse after she has caffeine. She is also looking to reestablish care at [facility] for Dupuytren's cont racture. [facility] Medical History History of duodenal ulcer Diverticulosis Chronic diarrhea Cervical cancer (~08/2018) CTS (carpal tunnel syndrome) Peptic ulcer disease (~2004) Allergic rhinitis GERD (gastroesophageal reflux disease) Surgical History Hx of endoscopy History of colonoscopy S/P bilateral breast reduction (~07/2019) S/P appendectomy H/O: hysterectomy Family History Father Family history of Alzheimer's disease Mother History of high blood pressure History of depression Social History Housing: House Alcohol intake: current Alcohol intake frequency: holidays/special occasions only Patient Tobacco Use Status: Never used Tobacco Second Hand Smoke Exposure: Yes service: No Current occupational status: employed Current occupation: Nurse Cognitive needs: No Hearing needs: No Vision needs: No Female Reproductive History Menstrual Age of Menarche: 10 Questionnaire PHQ-9 Over the last 2 weeks, how often have you been bothered by any of the following problems? 1. Little interest or pleasure in doing things: not at all 2. Feeling down, depressed, or hopeless: not at all 3. Trouble falling or staying asleep, or sleeping too much: not at all 4. Feeling tired or having little energy: not at all 5. Poor appetite or overeating: not at all 6. Feeling bad about yourself - or that you are a failure or have let yourself or your family down: not at all 7. Trouble concentrating on things, such as reading the newspaper or watching television: not at all 8. Moving or speaking so slowly that other people could have noticed. Or the opposite - being so fidgety or restless that you have been moving around a lot more than usual: not at all 9. Thoughts that you would be better off or of hurting yourself in some way: not at all Total score: 0 Depression Screening Interpretation: Negative Depression Screening Done: Yes Source: Developed by Drs. Lex Yung, Chelsie Waters, Rojelio Maria and colleagues, with an educational magalis from [employer]. Thrive Questionnaire Date Thrive assessed: 04/28/24 I am a: Patient What is your living situation today?: I have a steady place to live Within the past 12 months, did the food you bought not last and you didn't have the money to get more?: Never true Within the past 12 months, did you worry whether your food would run out before you got money to buy more?: Never true Do you have trouble paying for medicines?: No Do you have trouble getting transportation to medical appointments?: No Do you have trouble paying your heating and electricity bill?: No Do you have trouble taking care of your child, family member or friend?: No Do you have trouble with day-to-day activities such as bathing, preparing meals, shopping, managing finances, etc.?: No Are you currently unemployed and looking for a job?: No Are you interested in more education?: No Please select the resources that you would like help with: None Currently or been in a relationship where the following occur: No concerns reported THRIVE Score: 0 AUDIT C Alcohol Use Questionnaire (AUDIT-C) 1. How often do you have a drink containing alcohol?: Monthly or less 2. How many drinks containing alcohol do you have on a typical day when you are drinking?: 1 or 2 3. How often do you have six or more drinks on one occasion?: Never Total Score: 1 Score Reviewed/Action Taken: Yes (reviewed, no action needed) JOSEPHINE-7 AMB Questionnaire JOSEPHINE-7 Date JOSEPHINE - 7 assessed: 04/28/24 Feeling nervous, anxious, or on edge: 0 = Not at all Not being able to stop or control worryin = Not at all Worrying too much about different things: 0 = Not at all Trouble relaxin = Not at all Being so restless that it is hard to sit still: 0 = Not at all Becoming easily annoyed or irritable: 0 = Not at all Feeling afraid as if something awful might happen: 0 = Not at all Total JOSEPHINE-7 score (0-4 normal; 5-9 mild; 10-14 moderate; 15-21 severe): 0 Source: Developed by Drs. Lex Yung, Chelsie Waters, Rojelio Maria and colleagues, with an educational magalis from [employer]. JOSEPHINE-7 Assessment Billing JOSEPHINE-7 Assessment Tool: JOSEPHINE-7 Assessment 48959 Review of Systems Const Denies body aches, Denies fatigue, Denies fever(s), Denies frequent falls, Denies headache(s) and Denies weakness Eyes Reports no additional complaints and Denies change in vision ENT Denies dysphagia, Denies dizziness, Denies facial pain, Denies headache(s), Denies nasal congestion and Denies odynophagia Card Denies chest pain, Denies syncope, Denies irregular heart rhythm, Denies leg edema, Denies lightheadedness and Denies dyspnea Resp Denies cough and Denies dyspnea GI Reports bloating, Reports constipation, Denies dysphagia, Denies dyspepsia, Reports diarrhea, Denies nausea, Denies odynophagia and Denies vomiting Denies urinary frequency, Denies dysuria, Denies urinary hesitancy and Denies urinary urgency Musc Details: Dupuytren's contracture right hand Denies back pain and Denies myalgias Skin/Breast Reports system reviewed and no additional complaints, except as documented Neuro Denies dizziness, Denies syncope, Denies frequent falls, Denies headache(s) and Denies weakness Psych Reports no additional complaints Endo Denies fatigue Physical exam (Primary Care) Vital Signs: Oxygen Delivery Method Room Air 04/28/24 14:40 Tobacco/Smoking Status: Tobacco use Status Tobacco use date assessed 04/28/24 04/28/24 14:42 Patient Tobacco Use Status Never used Tobacco 04/28/24 14:42 PHQ-9: PHQ-9 Score PHQ-9: Total score 0 04/28/24 14:42 Depression Screening Interpretation: Negative Thrive Assessment: Date of Thrive Assessment Date Thrive assessed 04/28/24 04/28/24 14:42 Currently or been in a relationship where the following occur: No concerns reported Const General: cooperative, healthy appearing, comfortable and no acute distress Orientation/consciousness: patient oriented x3 HENMT Head: Yes normocephalic Ears: hearing grossly normal bilaterally, external ears normal, TM's normal bilaterally and EAC's normal General nose exam: Normal external nose present Face and sinus: Yes normal facial exam and Yes sinuses nontender Mouth: Normal oral and palatal mucosa present and tongue normal Throat: Yes posterior oropharynx normal Eyes General: appearance normal, both eyes and all related structures Conjunctivae: conjunctivae normal Pupils: Equal, round and reactive pupils present EOM: EOMs intact bilaterally and No Nystagmus present Neck Neck: Yes normal visual inspection, Yes full ROM and Yes no lymphadenopathy Chest Chest palpation & inspection: normal inspection of the chest Resp Effort & Inspection: normal respiratory effort Auscultation: clear to auscultation bilaterally, no crackles, no rales, no rhonchi, no wheezes and breath sounds present Cardio Rate: regular rate Rhythm: regular rhythm Peripheral pulses: radial pulses present and dorsalis pedis present GI Other: Bloating and epigastric region. Inspection: Yes normal to inspection and No Abdominal wall edema Palpation (GI): Soft to palpation, not firm, nontender, not rigid and no masses Auscultation: normal bowel sounds Rectal Exam - Female: deferred General: Yes no CVA tenderness Back/Spine/Pelvis Back: no CVA tenderness Skin General skin exam: no rashes or lesions noted Neuro General: patient oriented x3 Cranial nerves: Yes Equal, round and reactive pupils present, Yes Midline tongue present, Yes Ability to bilaterally elevate shoulders present and No Nystagmus present Gait exam (Neuro): Normal gait present Extrem General: Yes normal to inspection, Yes full ROM, No no pedal edema and No edema Psych Speech and movement: Normal speech and movement present Affect: normal affect Insight: Good insight present (Psych) Judgement: Good judgement present (Psych) Assessment and Plan Assessment & Plan (1) Diverticulosis: Code(s): K57.90 - Diverticulosis of intestine, part unspecified, without perforation or abscess without bleeding Plan: Colonoscopy planned for 05/12/2024 and further follow up with GI. (2) Dupuytren's contracture of right hand: Code(s): M72.0 - Palmar fascial fibromatosis [Dupuytren] Plan: Continue to follow up with Orthopedics. Referral to [facility] placed today (3) GERD (gastroesophageal reflux disease): Code(s): K21.9 - Gastro-esophageal reflux disease without esophagitis Plan: Avoid trigger foods such as citrus, tomato products, soda, caffeine, spicy foods and other foods that may be irritating to your stomach. Avoid laying flat 3-4 hours after eating and elevate the head of the bed 30 degrees to prevent acid from moving into the esophagus. Continue on esomeprazole (4) Hepatic steatosis: Code(s): K76.0 - Fatty (change of) liver, not elsewhere classified Plan: Healthy diet and exercise recommended. (5) Chronic diarrhea: Code(s): K52.9 - Noninfective gastroenteritis and colitis, unspecified Plan: Continue on rifaximin and dicyclomine and continue to follow up with GI. (6) Obesity (BMI 30.0-34.9): Code(s): E66.9 - Obesity, unspecified Plan: Encouraged healthy diet and exercise. We will try Ozempic for weight loss however informed patient she needs to continue with healthy diet and exercise regularly. Prescription was sent to pharmacy. (7) Annual physical exam: Code(s): Z00.00 - Encounter for general adult medical examination without abnormal findings Plan: Patient is up-to-date on vaccinations and screenings recommended for her age. Updated blood work ordered at this visit. Plan This note was constructed using voice recognition software. While every effort has been made to ensure accuracy and hop weigher, still areas may have been included sometimes these areas may affect the content or meeting of the given symptoms. Total time spent caring for the patient today was 40 minutes. This includes time spent before the visit reviewing the chart, time spent during the visit, and time spent after the visit and documentation. Orders: Orders Complete Blood Count Auto Diff Today Z00.00 - Encounter for general adult medical examination without abnormal findings Comprehensive Met. Panel Today Z00.00 - Encounter for general adult medical examination without abnormal findings Vitamin B12 and Folate Today Z00.00 - Encounter for general adult medical examination without abnormal findings Vitamin D 25-OH (D2 and D3) Today Z00.00 - Encounter for general adult medical examination without abnormal findings Free T4 (Free Thyroxine) Today Z00.00 - Encounter for general adult medical examination without abnormal findings Lipid Panel Today Z00.00 - Encounter for general adult medical examination without abnormal findings Thyroid Stimulating Hormone Today Z00.00 - Encounter for general adult medical examination without abnormal findings Referrals Orthopedics Referral M72.0 - Palmar fascial fibromatosis [Dupuytren] Medications: New semaglutide (Ozempic) for 4 weeks 0.25 mg (0.368 mL) subcut QWEEK 3 mL 0RF semaglutide (Ozempic) for 4 weeks 0.25 mg (0.368 mL) subcut QWEEK 3 mL 1RF Refilled dicyclomine 10 mg PO BID 60 caps 2RF Coding Level of Care Code Est Pt Prev Care 40-64y(69141) Diagnoses Diverticulosis K57.90 Dupuytren's contracture of right hand M72.0 GERD (gastroesophageal reflux disease) K21.9 Hepatic steatosis K76.0 Chronic diarrhea K52.9 Obesity (BMI 30.0-34.9) E66.9 Annual physical exam Z00.00 Additional Codes JOSEPHINE-7 Assessment Billing - JOSEPHINE-7 Assessment Tool: JOSEPHINE-7 Assessment 22276 ([id number]) PHQ-9 - 09056 - PHQ-9 Billing: ([id number])
[2024-04-28 14:40] VITALS: BP 134/86; PULSE 91; O2SAT 97; BMI 33.0
== END 2024-04-28 16:02 | disposition home or self-care (01) ==
PROVIDERS: PCP Physician Assistant
DX: Z00.00 Encounter for general adult medical examination without abnormal findings (principal); K57.90 Diverticulosis of intestine, part unspecified, without perforation or abscess without bleeding; M72.0 Palmar fascial fibromatosis [Dupuytren]; K76.0 Fatty (change of) liver, not elsewhere classified; K21.9 Gastro-esophageal reflux disease without esophagitis; K52.9 Noninfective gastroenteritis and colitis, unspecified
CPT/HCPCS: 99396

== ENCOUNTER 2024-05-02 08:45 | Outpatient (REF) | payer OTHER, SELFPAY ==
[2024-05-02 09:14] LABS: MANUAL DIFF FLAG NO
[2024-05-02 10:06] LABS: Basophils Absolute Auto 0.1 X10*3/uL (0.0-0.2); Eosinophils Absolute Auto 0.2 X10*3/uL (0.0-0.4); Eosinophils Percent Auto 2.9 % (0-4); Hemoglobin 15.3 g/dl (12.0-16.0); Imm Gran Abs Auto 0.03 X10*3/uL (0.00-0.03); Imm Gran Pct Auto 0.6 % (0.0-0.4); Lymphocytes Absolute Auto 1.7 X10*3/uL (1.2-4.9); Lymphocytes Percent Auto 33.1 % (20-40); Mean Corpuscular HGB Conc 34.8 g/dl (31.0-35.0); Mean Corpuscular Hemoglobin 30.1 pg (27.0-33.0); Mean Corpuscular Volume 86.6 fL (80.0-98.0); Mean Platelet Volume 9.1 fL (9.4-12.3); Monocytes Absolute Auto 0.4 X10*3/uL (0.1-1.2); Monocytes Percent Auto 6.7 % (2-11); Neutrophils Absolute Auto 2.9 x10*3/uL (2.0-8.3); Neutrophils Percent Auto 55.7 % (45-73); Platelet Count 215 X10*3/uL (160-400); Red Blood Count 5.08 X10*6/uL (4.20-5.50); Red Cell Distribution Width 13.1 % (11.0-16.0); White Blood Count 5.3 X10*3/uL (4.8-10.8)
[2024-05-02 10:55] LABS: Alanine Aminotransferase 22 U/L (0-31); Albumin Level 4.1 g/dL (3.5-5.0); Alkaline Phosphatase 81 U/L (39-117); Anion Gap 13 (12-20); Aspartate Amino Transferase 22 U/L (5-31); Bilirubin Total 0.4 mg/dL (0.0-1.0); Blood Urea Nitrogen 10 mg/dL (9-16); Calcium 9.1 mg/dL (8.4-10.2); Carbon Dioxide 25 mmol/L (22-29); Chloride 108 mmol/L (96-108); Cholesterol 213 mg/dL (<200); Estimated Glomerular Filt Rate > 60; Glucose Random 105 mg/dL (60-115); HDL Cholesterol 54 mg/dL (>40); LDL Cholesterol Calculated 112 mg/dL (<100); Potassium 4.1 mmol/L (3.3-5.1); Sodium 142 mmol/L (135-145); Total Protein 6.9 g/dL (6.5-8.0); Triglycerides 239 mg/dL (<150)
[2024-05-02 10:57] LABS: Free T4 (Free Thyroxine) 0.86 ng/dL (0.71-1.85); Thyroid Stimulating Hormone 1.67 uIU/mL (0.32-4.0)
[2024-05-02 11:18] LABS: Folate 7.1 ng/mL (> or = 4.0); Vitamin B12 212 pg/mL (200-900)
[2024-05-07 15:38] LABS: Vitamin D 25-OH, D2 4 ng/mL; Vitamin D 25-OH, D3 28 ng/mL; Vitamin D 25-OH, Total 32 ng/mL (30-100)
== END 2024-05-02 08:46 | disposition home or self-care (01) ==
LOC: HO.LAB 08:45
PROVIDERS: PCP Internal Medicine
DX: Z00.00 Encounter for general adult medical examination without abnormal findings (principal)
CPT/HCPCS: 36415; 80053; 80061; 82306; 82607; 82746; 84439; 84443; 85025

== ENCOUNTER 2024-08-31 19:07 | Inpatient (IN) | payer OTHER, SELFPAY ==
--- NOTE | ~2024-08-31 | CT_ITS ---
EXAMINATION: CT ABDOMEN AND PELVIS WITHOUT CONTRAST CLINICAL INFORMATION: Left lower quadrant pain COMPARISON: CT abdomen/pelvis dated 10/22/2020 and 11/07/2019 TECHNIQUE: Multidetector volumetric imaging was performed from the superior aspect of the liver through the pubic symphysis. Sagittal and coronal reformatted images were obtained on the technologist's workstation. This CT examination was performed using dose optimization techniques as appropriate, variously including the following: *Automated exposure control *Adjustment of mA and/or kV according to patient size (this includes techniques or standardized protocols for targeted exams where dose is matched to indication/reason for exam; i.e. extremities or head) *Use of iterative reconstruction technique DLP: 625 mGy-cm FINDINGS: LUNG BASES: The visualized lung bases are unremarkable. LIVER, GALLBLADDER, AND BILIARY TREE: The liver is diffusely low in attenuation likely presented hepatic steatosis, but otherwise normal in size and shape. No focal hepatic lesion or biliary ductal dilatation is present. The gallbladder is unremarkable with no evidence of radiopaque gallstones, gallbladder wall thickening, or obvious pericholecystic inflammatory changes. PANCREAS: Unremarkable. SPLEEN: Unremarkable. ADRENAL GLANDS: Unremarkable. KIDNEYS AND URETERS: The kidneys are normal in size, shape, and attenuation. No hydronephrosis, hydroureter, or calculi seen. No perinephric stranding. BLADDER: Decompressed, limiting evaluation. GASTROINTESTINAL TRACT: Sigmoid diverticulosis with wall thickening and pericolonic stranding around the sigmoid colon likely representing acute diverticulitis. There is soft tissue thickening along the left pelvic sidewall and nodularity abutting the inflamed sigmoid colon, with interval enlargement that measures 6.4 x 1.8 cm, previously measured 5.0 x 0.8 cm. No drainable fluid collection. No pneumoperitoneum. Fluid filled ascending and transverse colon. The small bowel is unremarkable. The appendix is nonvisualized. ABDOMINAL WALL: No significant hernia is appreciated. LYMPH NODES: Normal. VASCULAR: Unremarkable. PELVIC VISCERA: Status post hysterectomy. OSSEOUS STRUCTURES: Degenerative changes of the spine. CT/CT abdomen pelvis wo IV con IMPRESSION: 1. Acute sigmoid diverticulitis with interval enlargement of soft tissue thickening along the left pelvic sidewall and nodularity abutting the inflamed sigmoid colon. Findings are concerning for phlegmonous changes. No drainable fluid collection. No pneumoperitoneum. 2. Fluid-filled ascending and transverse colon, which can be seen in diarrheal illness. 3. Hepatic steatosis. Fleischner guidelines were followed. Electronically signed by: Sarah Zambrano MD 08/31/2024 11:18 PM [facility]
--- NOTE | ~2024-08-31 | CT_ITS ---
CLINICAL HISTORY: Diverticular abscess the sigmoid colon. PROCEDURES: 1. Limited preprocedure CT of the pelvis. Permanent images saved in PACS. 2. CT-guided drainage of a diverticular abscess. 3. Limited post procedure CT of the pelvis. Permanent images saved in PACS. CLINICIANS: Tremaine Gordon PA-C Preprocedural imaging reviewed with Dr. Valdez MEDICATIONS: -Versed 2 mg, Fentanyl 100 mcg, and lidocaine 1% 10 mL SQ -Antibiotics: None -For additional details, please see nursing flowsheet. COMPLICATIONS: None ESTIMATED BLOOD LOSS: < 5 ml CONTRAST: 85 mL of Omnipaque 350. SPECIMENS: A specimen was sent for culture. MODERATE SEDATION TIME: 35 min PROCEDURE NOTE: The procedure, risks, benefits, and alternatives were carefully explained to the patient and written informed consent was obtained. The patient was placed supine on the CT table. A timeout was performed. A limited CT of the pelvis was performed to localize the fluid collection and choose appropriate needle entry and trajectory. The patient was prepped and draped in usual sterile fashion. The skin and subcutaneous tissues were anesthetized with lidocaine. Under CT guidance, a 5 Kinyarwanda Yueh needle/catheter was advanced to the fluid collection. Purulent fluid was immediately aspirated. A 0.035 J wire was inserted through the the needle and coiled in the fluid collection. The needle was then removed over the wire. The tract was then serially dilated. Over the wire, an 8 fr all-purpose drainage catheter was advanced and coiled into the fluid collection under CT guidance. The wire was then removed. A total of 10 ml of purulent fluid was removed and sent for culture. The catheter was secured to the skin with a 3-0 nylon suture. A NEGRO bulb was then attached to the drainage catheter. A limited postprocedure CT was then obtained. The patient was stable after the procedure and was transferred to the post anesthesia care unit. The procedure was done under moderate sedation with a dedicated nurse for monitoring of vital signs. CT/CT guided drainage Impression: CT guided drainage of sigmoid diverticular abscess. This procedure was performed by Tremaine Gordon PA-C and supervised by Dr. Talbot. Electronically signed by: Florin Mcdermott MD 09/08/2024 02:19 PM [facility]
--- NOTE | ~2024-08-31 | FL_ITS ---
EXAMINATION: FLUOROSCOPIC DRAIN INJECTION/EVALUATION CLINICAL INFORMATION: Diverticular abscess status post percutaneous drainage 48 hours ago. Scant output. Assess for fistula prior to drain removal. COMPARISON: CT scan September 05 TECHNIQUE: A 20 cc mixture of 50%saline/50% Omnipaque 300 was injected through the left lower quadrant percutaneous drainage catheter and multiple spot images and cine loops were recorded. FINDINGS: A drainage catheter overlies the left pelvis. Dilute contrast was injected through the catheter, which demonstrated opacification of the sigmoid colon. The catheter was then flushed with normal saline and reconnected to the NEGRO bulb. FL/FL fistula/abscess/sinus tract IMPRESSION: 1. Contrast injection demonstrates a fistulous tract between the sigmoid colon and the abscess cavity, therefore, the drainage catheter was not removed. The surgeon was notified of this finding. This procedure was performed by Tremaine Gordon PA-C, and supervised by Dr. Simpson Electronically signed by: Elías Simpson MD 09/07/2024 05:25 PM [facility] [place]
--- NOTE | ~2024-08-31 | CT_ITS ---
EXAMINATION: CT ABDOMEN PELVIS WITHOUT IV CONTRAST CLINICAL INFORMATION: fever, abd cramping, diverticulitis COMPARISON: August 31, 2024 TECHNIQUE: Multidetector volumetric imaging was performed from the superior aspect of the liver through the pubic symphysis noncontrasted study Sagittal and coronal reformatted images were obtained on the technologist's workstation. This CT examination was performed using dose optimization techniques as appropriate, variously including the following: *Automated exposure control *Adjustment of mA and/or kV according to patient size (this includes techniques or standardized protocols for targeted exams where dose is matched to indication/reason for exam; i.e. extremities or head) *Use of iterative reconstruction technique DLP: 742 mGy-cm FINDINGS: LOWER THORAX: Bilateral small pleural effusion and compression atelectasis at left lung bases. HEPATOBILIARY: Limited evaluation of the liver due to lack of contrast. Homogeneous texture and a smooth surface. Normal size. GALLBLADDER: Gallbladder unremarkable. SPLEEN: Spleen is normal in size. PANCREAS: No focal mass or ductal dilatation. STOMACH AND GASTROINTESTINAL TRACT: Stomach is grossly unremarkable. There is fat stranding surrounding the sigmoid colon, this is on the basis of underlying diverticulosis, the CT appearance of which is compatible with ACUTE DIVERTICULITIS. There is complex soft tissue bilobed phlegmon in the left lower quadrant of the pelvis adjacent to the iliac vessels roughly measures 5 x 2.7 cm newly developed concerning for evolving abscess. Refer image 64 series of 3. ADRENALS: No adrenal nodules. KIDNEYS/URETERS: Mild hydronephrosis and hydroureter on the left side could be sequela due to ureteritis caused as the left ureter course through the area of inflammation caused by the Diverticulitis.. No stone found. URINARY BLADDER: Limited assessment, urinary bladder is decompressed unopacified. The minutes PELVIC VISCERA: Unremarkable PERITONEUM: Trace amount of fluid in the peritoneum. LYMPH NODES: Enlarged retroperitoneal periaortic lymph node probably reactive lymphadenopathy. VASCULAR:Abdominal aorta normal in size, no aneurysm found. BONES, ABDOMINAL WALL AND SOFT TISSUES: Age-appropriate changes of the spine and skeletal system, no destructive osteolytic or osteosclerotic bone lesion found CT/CT abdomen pelvis wo IV con IMPRESSION: 1. There is fat stranding surrounding the sigmoid colon, this is on the basis of underlying diverticulosis, the CT appearance of which is compatible with ACUTE DIVERTICULITIS. 2. There is complex soft tissue phlegmon in the left lower quadrant of the pelvis adjacent to the iliac vessels roughly measures 5 x 2.7 cm newly developed concerning for evolving abscess Limited assessment due to lack of contrast, IR consultation and follow-up CT scan with contrast recommended.. Potter image. 3. Mild hydronephrosis and hydroureter on the left side could be sequela due to ureteritis caused as the left ureter course through the area of inflammation caused by the Diverticulitis. No stone found. 4. Enlarged retroperitoneal periaortic lymph node probably reactive lymphadenopathy. 5. Bilateral small pleural effusions and compression atelectasis at left lung base. (Referring physician staff is being called, by physician staff assistance, to be alerted of the above critical findings and recommendations.) AJ 09/04/2024 10:43 AM [employer]. Electronically signed by: Deyanira Peoples MD 09/04/2024 11:43 AM [facility]
[2024-08-31 19:32] VITALS: BP 155/85; PULSE 106; RESP 20; TEMP 36.9; O2SAT 94; BMI 29.7
--- NOTE | 2024-08-31 20:06 | ED.GENADULT ---
HPI - General Adult General Chief complaint: Nausea/Vomiting/Diarrhea Stated complaint: Vomiting Time Seen by Provider: 08/31/24 21:40 Source: patient Mode of arrival: ambulatory Limitations: no limitations History of Present Illness ED Provider: HPI narrative: Patient's history of diverticulitis supposed to get for endoscopy today since afternoon yesterday started having the lower abdominal pain vomited multiple times and with increased lower abdominal pain blood in his stool no fever no chills Related Data Home Medications ?Medication ?Instructions ?Recorded ?Confirmed esomeprazole magnesium 40 mg 40 mg PO DAILY 11/29/21 08/30/24 capsule,delayed release (Nexium) fexofenadine 60 mg tablet (Dunia 60 mg PO BID 05/22/23 08/30/24 Allergy) Previous Rx's ?Medication ?Instructions ?Recorded rifaximin 550 mg tablet 550 mg PO TID 2 weeks #42 tabs 01/25/24 dicyclomine 10 mg capsule 10 mg PO BID #60 caps 04/28/24 Allergies Allergy/AdvReac Type Severity Reaction Status Date / Time metronidazole [From Flagyl] Allergy Unknown Elevated Verified 08/31/24 19:36 liver enzymes Penicillins [PENICILLINS] Allergy Unknown Hives Verified 08/31/24 19:36 prochlorperazine Allergy Unknown Unknown Verified 08/31/24 19:36 [From Compazine] levofloxacin [From Levaquin] AdvReac Unknown Unknown Verified 08/31/24 19:36 sulfacetamide AdvReac Unknown Unknown Verified 08/31/24 19:36 Review of Systems Review of Systems: Yes all other systems are reviewed and are negative PMFSH Past Medical History Medical History History of duodenal ulcer Diverticulosis Chronic diarrhea Cervical cancer (~08/2018) CTS (carpal tunnel syndrome) Peptic ulcer disease (~2004) Allergic rhinitis GERD (gastroesophageal reflux disease) Surgical History Hx of endoscopy History of colonoscopy S/P bilateral breast reduction (~07/2019) S/P appendectomy H/O: hysterectomy Family History Family History Father Family history of Alzheimer's disease Mother History of high blood pressure History of depression Social History Social History Housing: House Alcohol intake: current Alcohol intake frequency: does not drink Patient Tobacco Use Status: Never used Tobacco Smoked in Last 30 Days: No Second Hand Smoke Exposure: Yes Use of substances other than those prescribed or required for medical reasons: No Advance Directives: No Advance Directives Information Provided: No Do you have a plan to hurt others: No Plan Nutrition Risks: No Nutritional Risk Patient : No service: No Current occupational status: employed Current occupation: Nurse Cognitive needs: No Hearing needs: No Vision needs: No Physical Exam ED Vital Signs: Vital Signs - 24 hr 08/31/24 19:32 08/31/24 21:44 Temperature 98.4 F 98.1 F Pulse Rate 106 H 89 Respiratory Rate 20 18 Blood Pressure 155/85 H 135/78 Pulse Oximetry 94 97 Oxygen Delivery Method Room Air Room Air BMI result Body Mass Index 29.7 Appearance: Alert. Oriented X3. No acute distress. Eyes: No pallor or icterus ENT: Pharynx normal. Oral Mucosa moist Neck: Normal inspection. Neck supple. CVS: Normal heart rate and rhythm. Pulses normal. Respiratory: No respiratory distress. Equal air entry bilateral, no wheezing/rales/rhonchi Abdomen: Soft and tenderness left lower quadrant with guarding no rebound tenderness. Bowel sounds are present, no mass palpable, no CVA tenderness Skin: Skin warm and dry. Normal skin color. Normal skin turgor. Extremities: No lower extremity edema. No calf tenderness Neuro: Oriented X 3. Course Course Course Narrative: This is an RME done by REBECCA Moran: Additional HPI, ROS, PE not included below will be deferred to primary provider. 63-year-old female presents with left lower quadrant pain, longstanding history of diverticulitis she reports this feels like her typical episode. She is scheduled to have a colonoscopy tomorrow at 10:30. She reports she started the prep today and has not been able to tolerate it. She feels like she is having a flare. Denies fevers, chills, cp, sob, blood in stool or vomit Medications Administered Generic Name Dose Route Start Last Admin Trade Name Freq PRN Reason Stop Dose Admin Enoxaparin Sodium 40 mg 09/01/24 02:00 09/01/24 02:10 Enoxaparin Sodium 40 Mg/0.4 Ml Syringe SUBCUT Not Given Q24H JUAN CARLOS Hydromorphone HCl 1 mg 09/01/24 01:03 09/01/24 01:34 Hydromorphone Hcl 1 Mg/Ml Syringe IVPUSH 1 mg Q4H PRN Administration Pain, Severe (Pain Scale 7-10) Protocol Lactated Ringer's 1,000 mls @ 100 mls/hr 09/01/24 01:15 09/01/24 02:10 Lr IVCONT 100 mls/hr .Q10H JUAN CARLOS Administration Piperacillin Sod/Tazobactam 50 mls @ 100 mls/hr 09/01/24 04:00 09/01/24 04:26 Sod 3.375 gm/ Sodium Chloride IV Infused Q6H JUAN CARLOS Infusion Morphine Sulfate 4 mg 09/01/24 01:13 09/01/24 06:38 Morphine Sulfate 4 Mg/Ml Cartridge IVPUSH 4 mg Q4H PRN Administration Pain, Moderate(Pain Scale 4-6) Protocol Ondansetron HCl 4 mg 09/01/24 06:00 09/01/24 06:37 Ondansetron Hcl 4 Mg/2 Ml Vial IVPUSH 4 mg Q8H PRN Administration Nausea and Vomiting Discontinued Medications Generic Name Dose Route Start Last Admin Trade Name Freq PRN Reason Stop Dose Admin Sodium Chloride 1,000 mls @ 999 mls/hr 08/31/24 21:50 09/01/24 01:15 Ns IV 08/31/24 22:50 Infused .Q1H1M ONE Infusion Piperacillin Sod/Tazobactam 50 mls @ 100 mls/hr 08/31/24 21:50 08/31/24 22:57 Sod 3.375 gm/ Sodium Chloride IV 08/31/24 22:19 Infused ONCE ONE Infusion Morphine Sulfate 4 mg 08/31/24 21:50 08/31/24 22:27 Morphine Sulfate 4 Mg/Ml Cartridge IVPUSH 08/31/24 21:51 4 mg ONCE ONE Administration Protocol Ondansetron HCl 4 mg 08/31/24 21:50 08/31/24 22:27 Ondansetron Hcl 4 Mg/2 Ml Vial IVPUSH 08/31/24 21:51 4 mg ONCE ONE Administration Ondansetron HCl 4 mg 09/01/24 01:17 09/01/24 01:34 Ondansetron Hcl 4 Mg/2 Ml Vial IVPUSH 09/01/24 01:18 4 mg ONCE ONE Administration Medical Decision Making Medical Decision Making [facility] Narrative: Patient with left lower quadrant pain with acute diverticulitis with phlegmon formation no drainable abscess will admit patient to hospitalist service started IV antibiotics Differential Diagnosis Differential Diagnoses: The differential diagnosis associated with the presentation includes Colitis/diverticulitis Admission/Observation Consideration of admission/observation: Escalation of care including admission/observation considered Consult Healthcare Provider Management of the patient was discussed with: Hospitalist Lab Data [facility] Lab Attestation statement: I reviewed the patient's lab results. 08/31/24 20:06 08/31/24 20:06 Labs: Lab Results 08/31/24 Range/Units 20:06 WBC 14.6 H (4.8-10.8) X10*3/uL RBC 5.45 (4.20-5.50) X10*6/uL Hgb 15.7 (12.0-16.0) g/dl Hct 45.5 (37.0-47.0) % MCV 83.5 (80.0-98.0) fL MCH 28.8 (27.0-33.0) pg MCHC 34.5 (31.0-35.0) g/dl RDW 12.8 (11.0-16.0) % Plt Count 200 (160-400) X10*3/uL MPV 9.0 L (9.4-12.3) fL Immature Gran % (Auto) 0.3 (0.0-0.4) % Neut % (Auto) 80.0 H (45-73) % Lymph % (Auto) 13.0 L (20-40) % [place] % (Auto) 6.0 (2-11) % Eos % (Auto) 0.3 (0-4) % Baso % (Auto) 0.4 (0-2) % Lymph # (Auto) 1.9 (1.2-4.9) X10*3/uL [place] # (Auto) 0.9 (0.1-1.2) X10*3/uL Eos # (Auto) 0.0 (0.0-0.4) X10*3/uL Baso # (Auto) 0.1 (0.0-0.2) X10*3/uL Abs Immat Gran (auto) 0.05 H (0.00-0.03) X10*3/uL Absolute Neuts (auto) 11.7 H (2.0-8.3) x10*3/uL Absolute Nucleated RBC 0.000 (0.0-0.012) X10*3/uL Nucleated RBC % (auto) 0.0 (0.0-0.2) /100WBC Sodium 142 (135-145) mmol/L Potassium 3.8 (3.3-5.1) mmol/L Chloride 106 (96-108) mmol/L Carbon Dioxide 23 (22-29) mmol/L Anion Gap 17 (12-20) BUN 10 (9-16) mg/dL Creatinine 0.85 (0.5-1.4) mg/dL Estim Creat Clear Calc 72.1 Estimated GFR > 60 Random Glucose 122 H (60-115) mg/dL Calcium 9.5 (8.4-10.2) mg/dL Magnesium 2.1 (1.6-2.6) mg/dL Total Bilirubin 0.8 (0.0-1.0) mg/dL AST 21 (5-31) U/L ALT 13 (0-31) U/L Alkaline Phosphatase 77 (39-117) U/L Total Protein 7.6 (6.5-8.0) g/dL Albumin 4.4 (3.5-5.0) g/dL Lipase 27 (8-78) U/L Beta HCG, Quant 9 mIU/mL Urine Color Yellow Urine Appearance Clear Urine pH 5.0 (5.0-9.0) Ur Specific [place] 1.025 (1.005-1.025) Urine Protein Negative (Neg-Trace) mg/dL Urine Glucose (UA) Negative (Negative) mg/dL Urine Ketones 15 (Negative) mg/dL Urine Blood Negative (Negative) Urine Nitrite Negative (Negative) Ur Leukocyte Esterase Trace H (Negative) Urine RBC 0-2 (0-2) /HPF Urine WBC 0-5 (0-5) /HPF Ur Squamous Epith Cells 3-5 (0-2) /HPF Urine Bacteria None Seen (None Seen) Hyaline Casts 11-20 (0-2) /LPF Influenza Type A (PCR) NEGATIVE (Negative) Influenza Type B (PCR) NEGATIVE (Negative) RSV RNA Qual (PCR) NEGATIVE (Negative) SARS-CoV-2 RNA (RT-PCR) NEGATIVE (Negative) Independent Interpretation I performed an independent interpretation of an: CT Scan Radiology Impression Discussion of test interpretation with radiology: I have reviewed the radiologist's reading. Radiologist Impression: CT/CT abdomen pelvis wo IV con IMPRESSION: 1. Acute sigmoid diverticulitis with interval enlargement of soft tissue thickening along the left pelvic sidewall and nodularity abutting the inflamed sigmoid colon. Findings are concerning for phlegmonous changes. No drainable fluid collection. No pneumoperitoneum. 2. Fluid-filled ascending and transverse colon, which can be seen in diarrheal illness. 3. Hepatic steatosis. Fleischner guidelines were followed. Electronically signed by: Sarah Zambrano MD 08/31/2024 11:18 PM [facility] Discharge Plan Discharge Clinical Impression: Diverticulitis Patient Disposition: Admitted As Inpatient
--- NOTE | 2024-08-31 20:10 | MHC.EDTECH ---
Patient brought into triage area,labs,urine,and sars/flu/rsv obtained and sent to lab
[2024-08-31 20:12] LABS: MANUAL DIFF FLAG NO
[2024-08-31 20:14] LABS: Basophils Absolute Auto 0.1 X10*3/uL (0.0-0.2); Basophils Percent Auto 0.4 % (0-2); Eosinophils Percent Auto 0.3 % (0-4); Hematocrit 45.5 % (37.0-47.0); Hemoglobin 15.7 g/dl (12.0-16.0); Imm Gran Abs Auto 0.05 X10*3/uL (0.00-0.03); Imm Gran Pct Auto 0.3 % (0.0-0.4); Lymphocytes Absolute Auto 1.9 X10*3/uL (1.2-4.9); Mean Corpuscular HGB Conc 34.5 g/dl (31.0-35.0); Mean Corpuscular Hemoglobin 28.8 pg (27.0-33.0); Mean Corpuscular Volume 83.5 fL (80.0-98.0); Monocytes Absolute Auto 0.9 X10*3/uL (0.1-1.2); Neutrophils Absolute Auto 11.7 x10*3/uL (2.0-8.3); Platelet Count 200 X10*3/uL (160-400); Red Blood Count 5.45 X10*6/uL (4.20-5.50); Red Cell Distribution Width 12.8 % (11.0-16.0); White Blood Count 14.6 X10*3/uL (4.8-10.8)
[2024-08-31 20:27] LABS: Appearance Urine Clear; Color Urine Yellow; Glucose Urine UA Negative (Negative); Leukocyte Esterase Urine Trace (Negative); Nitrite Urine Negative (Negative); Specific Gravity - Urine 1.025 (1.005-1.025); UMIC TRIGGER UACC YES; Urine Blood Negative (Negative); Urine Ketones 15 mg/dL (Negative); Urine Protein Negative (Neg-Trace)
[2024-08-31 20:33] LABS: Bacteria Urine None Seen (None Seen); RBC Urine 0-2 /HPF (0-2); WBC Urine 0-5 /HPF (0-5)
[2024-08-31 20:36] LABS: Alanine Aminotransferase 13 U/L (0-31); Albumin Level 4.4 g/dL (3.5-5.0); Alkaline Phosphatase 77 U/L (39-117); Anion Gap 17 (12-20); Aspartate Amino Transferase 21 U/L (5-31); Bilirubin Total 0.8 mg/dL (0.0-1.0); Blood Urea Nitrogen 10 mg/dL (9-16); Calcium 9.5 mg/dL (8.4-10.2); Carbon Dioxide 23 mmol/L (22-29); Chloride 106 mmol/L (96-108); Creatinine Clr Calc Pharmacy 72.1; Estimated Glomerular Filt Rate > 60; Glucose Random 122 mg/dL (60-115); Lipase 27 U/L (8-78); Magnesium 2.1 mg/dL (1.6-2.6); Potassium 3.8 mmol/L (3.3-5.1); Sodium 142 mmol/L (135-145); Total Protein 7.6 g/dL (6.5-8.0)
[2024-08-31 20:37] LABS: HCG Quantitative 9 mIU/mL
[2024-08-31 20:54] LABS: Influenza A PCR NEGATIVE (Negative); Influenza B PCR NEGATIVE (Negative); Resp Syncy Virus RNA Qual PCR NEGATIVE (Negative); SARS COV2 PCR INHOUSE NEGATIVE (Negative)
[2024-08-31 21:44] VITALS: BP 135/78; PULSE 89; RESP 18; TEMP 36.7; O2SAT 97
[2024-08-31] MEDS: ondansetron HCL 4 MG/2 ML VIAL IVPUSH (22:27)
[2024-08-31] MEDS: Morphine Sulfate 4 MG/ML CARTRIDGE IVPUSH (22:27)
[2024-08-31] MEDS: 0.9 % Sodium Chloride 1,000 ML 999 ML IV (22:27)
[2024-08-31] MEDS: Piperacillin Sodium/Tazobactam 3.375 GM in 0.9 % Sodium Chloride 50 ML IV (22:27)
[2024-09-01] VITALS (12 sets, daily range): BP systolic 90–138; BP diastolic 46–76; PULSE 74–103; RESP 16–20; TEMP 36.7–37.6; O2SAT 85–97
[2024-09-01] MEDS: HYDROmorphone HCl 1 MG/ML SYRINGE IVPUSH (01:34)
[2024-09-01] MEDS: ondansetron HCL 4 MG/2 ML VIAL IVPUSH ×3 (01:34→15:00)
--- NOTE | 2024-09-01 01:35 | PM.IMHP ---
History of Present Illness Date of Service: 09/01/24 Attending physician on admission: Severiano Cordova Chief Complaint: LLQ pain Patient is a 63-year-old female with a medical history significant for IBS, GERD and diverticulitis, presented to the ED today for left lower quadrant pain and suspected diverticulitis. She describes 12/ severe sharp pain in [place] LLQ. No fever or chills. Many episodes of diverticulitis in the past, most recently seen at [facility] this past year. She takes MiraLax for irritable bowel syndrome and reports her bowel movements have been normal. She was scheduled for a colonoscopy today with Dr. Yip. Her pain started on Thursday and when she started her prep last night her pain worsened with associated nausea and vomiting. She denies any blood in the stool or urinary symptoms including frequency or dysuria. Review of Systems Constitutional: Constitutional: Denies chills, Denies fatigue, Denies fever(s) and Denies headache(s) Eyes: Eyes: Denies change in vision ENT: Denies headache(s), Denies nasal congestion, Denies post nasal drip and Denies sore throat Cardiovascular: Cardiovascular: Denies chest pain, Denies rapid heart rate, Denies leg edema and Denies dyspnea Respiratory: Respiratory: Denies chest congestion, Denies cough, Denies dyspnea and Denies wheezing Gastrointestinal: Gastrointestinal: Reports as per HPI, Reports abdominal pain, Denies constipation, Denies diarrhea, Reports nausea and Reports vomiting Genitourinary: Genitourinary: Denies dysuria and Denies urinary urgency Musculoskeletal: Musculoskeletal: Denies muscle cramps Integumentary/Breasts: Skin/Breast: Denies rash Neurologic: Denies confusion and Denies headache(s) Psychiatric: Psychiatric: Denies confusion Endocrine: Endocrine: Denies fatigue Hematologic/Lymphatic: Hematologic/Lymphatic: Denies easy bleeding Allergic/Immunologic: Allergic/Immunologic: Denies wheezing [facility] Medical History (Updated 09/01/24 @ 01:41 by Daksha Medina PA-C) History of duodenal ulcer Diverticulosis Chronic diarrhea Cervical cancer (~08/2018) CTS (carpal tunnel syndrome) Peptic ulcer disease (~2004) Allergic rhinitis GERD (gastroesophageal reflux disease) Functional capacity: independent ambulation Patient : No Family History Father Family history of Alzheimer's disease Mother History of high blood pressure History of depression Surgical History Hx of endoscopy History of colonoscopy S/P bilateral breast reduction (~07/2019) S/P appendectomy H/O: hysterectomy Social History Housing: House Alcohol intake: current Alcohol intake frequency: does not drink Patient Tobacco Use Status: Never used Tobacco Second Hand Smoke Exposure: Yes service: No Current occupational status: employed Current occupation: Nurse Cognitive needs: No Hearing needs: No Vision needs: No Narrative: works as a nurse. rare eoth. no smoking or drug use. Meds Allergies Allergy/AdvReac Type Severity Reaction Status Date / Time metronidazole [From Flagyl] Allergy Unknown Elevated Verified 08/31/24 19:36 liver enzymes Penicillins [PENICILLINS] Allergy Unknown Hives Verified 08/31/24 19:36 prochlorperazine Allergy Unknown Unknown Verified 08/31/24 19:36 [From Compazine] levofloxacin [From Levaquin] AdvReac Unknown Unknown Verified 08/31/24 19:36 sulfacetamide AdvReac Unknown Unknown Verified 08/31/24 19:36 Active Medications: Current Medications Acetaminophen (Acetaminophen 325 Mg Tablet) 650 mg PO Q6H PRN PRN Reason: Pain, Mild (Pain Scale 1-3), fever or headache Calcium Carbonate (Calcium Carbonate 750 Mg Tab.Chew) 750 mg PO Q4H PRN PRN Reason: Heartburn Enoxaparin Sodium (Enoxaparin Sodium 40 Mg/0.4 Ml Syringe) 40 mg SUBCUT Q24H JUAN CARLOS Hydromorphone HCl (Hydromorphone Hcl 1 Mg/Ml Syringe) 1 mg IVPUSH Q4H PRN; Protocol PRN Reason: Pain, Severe (Pain Scale 7-10) Last Admin: 09/01/24 01:34 Dose: 1 mg Lactated Ringer's (Lr) 1,000 mls @ 100 mls/hr IVCONT .Q10H JUAN CARLOS Ketorolac Tromethamine (Ketorolac Tromethamine 30 Mg/Ml Vial) 15 mg IVPUSH Q6H PRN PRN Reason: Pain, Mild (Pain Scale 1-3) Stop: 09/06/24 01:28 Magnesium Hydroxide (Milk Of Magnesia 30 Ml Oral.Susp) 30 ml PO DAILY PRN PRN Reason: Constipation Melatonin (Melatonin 3 Mg Tablet) 6 mg PO BEDTIME PRN PRN Reason: Insomnia Metoclopramide HCl (Metoclopramide Hcl 10 Mg/2 Ml Vial) 10 mg IVPUSH Q6H PRN PRN Reason: Nausea and Vomiting Morphine Sulfate (Morphine Sulfate 4 Mg/Ml Cartridge) 4 mg IVPUSH Q4H PRN; Protocol PRN Reason: Pain, Moderate(Pain Scale 4-6) Ondansetron HCl (Ondansetron Hcl 4 Mg/2 Ml Vial) 4 mg IVPUSH Q8H PRN PRN Reason: Nausea and Vomiting Sodium Chloride (0.9 % Sodium Chloride Flush 3 Ml Syringe) 3 [facility] Home Medications ?Medication ?Instructions ?Recorded ?Confirmed ?Last Taken ?Type esomeprazole magnesium 40 mg 40 mg PO DAILY 11/29/21 08/30/24 Unknown History capsule,delayed release (Nexium) fexofenadine 60 mg tablet (Dunia 60 mg PO BID 05/22/23 08/30/24 Unknown History Allergy) Physical Exam Vital Signs and Narrative: Vital Signs: Last Vital Signs Temp 98.0 F 09/01/24 01:29 Pulse 74 09/01/24 01:29 Resp 16 09/01/24 01:29 BP 104/67 09/01/24 01:29 Pulse Ox 94 09/01/24 01:29 O2 Del Method Room Air 09/01/24 01:29 BMI result Body Mass Index 29.7 General: AOx3, no acute distress Resp: CTA bilaterally CVS: S1, S2, RRR GI: +BS, tender LLQ Skin: Warm, dry Neuro: Cranial nerves II-XII grossly intact bilaterally. Motor grossly intact bilaterally Extremities: No LE edema Psych: Appropriate affect sepsis focused exam normal Const: General: No confusion Orientation/consciousness: No confusion Neuro: General: No confusion Results Labs 08/31/24 20:06 08/31/24 20:06 Labs: Laboratory Results - last 24 hr 08/31/24 20:06 MCV 83.5 MCH 28.8 MCHC 34.5 RDW 12.8 Plt Count 200 MPV 9.0 L Immature Gran % (Auto) 0.3 Neut % (Auto) 80.0 H Lymph % (Auto) 13.0 L Evangeline % (Auto) 6.0 Eos % (Auto) 0.3 Baso % (Auto) 0.4 Lymph # (Auto) 1.9 Evangeline # (Auto) 0.9 Eos # (Auto) 0.0 Baso # (Auto) 0.1 Abs Immat Gran (auto) 0.05 H Absolute Neuts (auto) 11.7 H Absolute Nucleated RBC 0.000 Nucleated RBC % (auto) 0.0 Anion Gap 17 Estim Creat Clear Calc 72.1 Estimated GFR > 60 Random Glucose 122 H Calcium 9.5 Magnesium 2.1 Total Bilirubin 0.8 AST 21 ALT 13 Alkaline Phosphatase 77 Total Protein 7.6 Albumin 4.4 Lipase 27 Beta HCG, Quant 9 Urine Color Yellow Urine Appearance Clear Urine pH 5.0 Ur Specific [place] 1.025 Urine Protein Negative Urine Glucose (UA) Negative Urine Ketones 15 Urine Blood Negative Urine Nitrite Negative Ur Leukocyte Esterase Trace H Urine RBC 0-2 Urine WBC 0-5 Ur Squamous Epith Cells 3-5 Urine Bacteria None Seen Hyaline Casts 11-20 Influenza Type A (PCR) NEGATIVE Influenza Type B (PCR) NEGATIVE RSV RNA Qual (PCR) NEGATIVE SARS-CoV-2 RNA (RT-PCR) NEGATIVE Imaging Radiologist's Impressions: Impressions Abdomen/Pelvis CT 08/31/24 20:04 IMPRESSION: 1. Acute sigmoid diverticulitis with interval enlargement of soft tissue thickening along the left pelvic sidewall and nodularity abutting the inflamed sigmoid colon. Findings are concerning for phlegmonous changes. No drainable fluid collection. No pneumoperitoneum. 2. Fluid-filled ascending and transverse colon, which can be seen in diarrheal illness. 3. Hepatic steatosis. Fleischner guidelines were followed. Electronically signed by: Sarah Zambrano MD 08/31/2024 11:18 PM [facility] [place] Assessment and Plan (1) Sepsis: Status: Acute (2) Diverticulitis: Status: Acute Plan Patient is a 63-year-old female with a medical history significant for IBS, GERD and diverticulitis, presented to the ED today for left lower quadrant pain and suspected diverticulitis. Ddx includes diverticulitis, colitis, gastroenteritis sepsis secondary to sigmoid diverticulitis - leukocytosis and tachycardia, not severe sepsis - A/P CT with sigmoid diverticulitis and phlegmonous changes - diludad and morphine PRN for pain - LR 100ml/hr - clear liquid diet as tolerated - zofran and reglan PRN for nausea - lactic acid and blood cultures ordered although IV abx already started - continue zosyn due to multiple abx allergies - admit to med surg - monitor CBC and BMP full code VTE prophy: lovenox Patient with sepsis secondary to sigmoid diverticulitis, requiring admission for at least 2 midnights stay for IV antibiotics. Quality Stroke Does the patient have a stroke diagnosis?: No VTE Prior VTE?: No VTE Risk Level:: Medical - moderate - high VTE Device Contraindication: Treatment Not Indicated VTE Drug Contraindication: N/A - Med Ordered
[2024-09-01] MEDS: Lactated Ringers 1,000 ML 100 ML IVCONT ×2 (02:10→15:00)
[2024-09-01 02:19] LABS: Lactic Acid 0.7 mmol/L (0.5-2.0)
[2024-09-01] MEDS: Piperacillin Sodium/Tazobactam 3.375 GM in 0.9 % Sodium Chloride 50 ML IV ×4 (03:56→22:04)
[2024-09-01] MEDS: Morphine Sulfate 4 MG/ML CARTRIDGE IVPUSH ×2 (06:38→11:15)
--- NOTE | 2024-09-01 08:42 | PHA.MEDREC ---
Addendum entered by Kevin Dumont RPh 09/01/24 10:45: Samantha went and talked to patient again, pt takes only 1 teaspoon of miralax per day. Med rec was reviewed by Dolores. Original Note: Pharmacy Consult ? Medication Reconciliation Pharmacy has completed the medication reconciliation. Spoke with patient and she confirmed her medications. She stated she had a Colonoscopy set today for 10 but the patient states when she started the medicine she started profusely vomiting after taking it. She confirmed she takes the Dicyclomine 10mg tab as needed for IBS flare ups and she last took that Thursday. She confirmed she takes Esomeprazole 40mg tabs once daily and Dunia 24 hours tabs 1 tab daily and she states she last took that yesterday. She confirmed she takes Miralax taking 2 teaspoons with 6 ounces of juice daily and she states its been helping her a lot since taking it and she last took that Thursday.
--- NOTE | 2024-09-01 10:33 | PM.EVENT ---
Event Note Date of Service: 09/01/24 Event Note: Seen and evaluated pain better controlled No fever or chills Continue IVF and IV antibiotics Clear diet, advance as tolerated For colonoscopy as outpatient, scheduled with dr Yip in 4-6 weeks Time Spent With Patient Time: Total time managing care of this patient today ____ minutes.
--- NOTE | 2024-09-01 10:37 | MHC.CM.PN ---
Attempted to meet with patient in regards to discharge planning. Nursing care currently being provided. Will attempt to meet with patient again. Continue to monitor for d/c needs.
--- NOTE | 2024-09-01 11:15 | PC.NURSE ---
Patient requesting morphine instead of Dilaudid due to the side effects of medication, patient states she does not like feeling out of it
[2024-09-01] MEDS: 0.9 % Sodium Chloride Flush 3 ML SYRINGE IVFLUSH ×3 (11:22→19:48)
[2024-09-01] MEDS: polyethylene glycoL 3350 17 GM POWD.PACK 5 GM PO (12:52)
[2024-09-01] MEDS: Omeprazole 20 MG CAPSULE.DR PO (12:52)
--- NOTE | 2024-09-01 13:35 | PC.NURSE ---
Patient sleeping at this time, trial off of o2 and patients oxygen down to 84%, patient remains on 3L o2 [place]
[2024-09-01] MEDS: Ketorolac Tromethamine 30 MG/ML VIAL 15 MG IVPUSH (19:44)
[2024-09-01] MEDS: Metoclopramide HCl 10 MG/2 ML VIAL IVPUSH (19:45)
[2024-09-02] VITALS (9 sets, daily range): BP systolic 107–145; BP diastolic 59–67; PULSE 80–117; RESP 12–20; TEMP 36.4–39.6; O2SAT 92–98
[2024-09-02] MEDS: Piperacillin Sodium/Tazobactam 3.375 GM in 0.9 % Sodium Chloride 50 ML IV ×4 (03:28→21:47)
[2024-09-02] MEDS: Lactated Ringers 1,000 ML 100 ML IVCONT ×2 (03:32→15:00)
[2024-09-02] MEDS: Acetaminophen 325 MG TABLET 650 MG PO ×3 (03:47→21:42)
[2024-09-02 06:12] LABS: MANUAL DIFF FLAG NO
[2024-09-02 06:33] LABS: Anion Gap 13 (12-20); Blood Urea Nitrogen 8 mg/dL (9-16); Calcium 8.4 mg/dL (8.4-10.2); Carbon Dioxide 22 mmol/L (22-29); Chloride 106 mmol/L (96-108); Creatinine Clr Calc Pharmacy 78.6; Estimated Glomerular Filt Rate > 60; Glucose Random 133 mg/dL (60-115); Potassium 3.4 mmol/L (3.3-5.1); Sodium 138 mmol/L (135-145)
[2024-09-02 07:08] LABS: Basophils Percent Auto 0.3 % (0-2); Hematocrit 36.2 % (37.0-47.0); Hemoglobin 12.3 g/dl (12.0-16.0); Imm Gran Abs Auto 0.19 X10*3/uL (0.00-0.03); Imm Gran Pct Auto 1.3 % (0.0-0.4); Lymphocytes Absolute Auto 0.9 X10*3/uL (1.2-4.9); Lymphocytes Percent Auto 6.3 % (20-40); Mean Corpuscular Hemoglobin 28.9 pg (27.0-33.0); Mean Platelet Volume 9.9 fL (9.4-12.3); Monocytes Absolute Auto 0.9 X10*3/uL (0.1-1.2); Monocytes Percent Auto 6.4 % (2-11); Neutrophils Absolute Auto 12.2 x10*3/uL (2.0-8.3); Neutrophils Percent Auto 85.7 % (45-73); Platelet Count 178 X10*3/uL (160-400); Red Blood Count 4.26 X10*6/uL (4.20-5.50); Red Cell Distribution Width 12.6 % (11.0-16.0); White Blood Count 14.3 X10*3/uL (4.8-10.8)
[2024-09-02] MEDS: Ketorolac Tromethamine 30 MG/ML VIAL 15 MG IVPUSH ×2 (08:11→21:42)
[2024-09-02] MEDS: polyethylene glycoL 3350 17 GM POWD.PACK 5 GM PO (08:11)
[2024-09-02] MEDS: 0.9 % Sodium Chloride Flush 3 ML SYRINGE IVFLUSH ×3 (08:12→21:47)
--- NOTE | 2024-09-02 10:14 | P.CONGS_ITS ---
History of Present Illness Consult details Consult date: 09/02/24 <Suri Chow PA-C - Last Filed: 09/02/24 11:20> Reason for consult: other (diverticulitis, recurrent ) <Suri Chow PA-C - Last Filed: 09/02/24 11:20> Requesting physician: Carmen Alexis <Suri Chow PA-C - Last Filed: 09/02/24 11:20> Narrative: Beti Tobias is a 63-year-old female with PMH significant for IBS, GERD, hx of cervical cancer and diverticulitis who presented to the ED with complaints of abdominal pain. Her pain is in the LLQ and is sharp and severe in nature, nonradiating. She began her bowel prep earlier this week for her elective colonoscopy and her pain began shortly following and has progressively worsened. She had a hx of diverticulitis and this felt similar. She therefore presented to the ED for further evaluation where CBC, BMP, LFTs were obtained significant for a leukocytos of 14.6. CT scan abd/pelvis showed sigmoid diverticulosis with surrounding inflammatory changes and phlegmonous changes of left lateral pelvic side wall. She was admitted to the hospitalist service. She is on IV zosyn. She had a fever overnight. She feels somewhat improved this morning. She denies hematochezia, dysuria, pneumoturia, fecaluria. Last colonoscopy 2020 severe diverticulosis, sharp turn left colon, CTC then done--no colonic masses, ?small polyps. She reports multiple episodes of diverticulitis with her first episode in 2017 and a few in the following years. She reports two prior episodes in April and June of this year requiring admission with IV abx. She reports this is her worst episode. <Suri Chow PA-C - Last Filed: 09/02/24 11:20> Review of Systems 2 Review of Systems: Yes all other systems are reviewed and are negative < Suri Chow PA-C - Last Filed: 09/02/24 11:20> [facility] Past Medical History Medical History: Medical History History of duodenal ulcer Diverticulosis Chronic diarrhea Cervical cancer (~08/2018) CTS (carpal tunnel syndrome) Peptic ulcer disease (~2004) Allergic rhinitis GERD (gastroesophageal reflux disease) <HECTOR Mark Last Filed: 09/02/24 11:20> Family History Family History: Family History Father Family history of Alzheimer's disease Mother History of high blood pressure History of depression <HECTOR Mark Last Filed: 09/02/24 11:20> Surgical History Surgical History: Surgical History Hx of endoscopy History of colonoscopy S/P bilateral breast reduction (~07/2019) S/P appendectomy H/O: hysterectomy <HECTOR Mark Last Filed: 09/02/24 11:20> Social History Social History: Social History Household Members: Other Household Members Other:: brother Housing: House Do you presently have visiting nurse or other home services: No Alcohol intake: current Alcohol intake frequency: does not drink Patient Tobacco Use Status: Never used Tobacco Second Hand Smoke Exposure: Yes service: No Current occupational status: employed Current occupation: Nurse Cognitive needs: No Hearing needs: No Vision needs: No <HECTOR Mark Last Filed: 09/02/24 11:20> Meds Allergies/Adverse reactions: Allergies Allergy/AdvReac Type Severity Reaction Status Date / Time metronidazole [From Flagyl] Allergy Unknown Elevated Verified 08/31/24 19:36 liver enzymes Penicillins [PENICILLINS] Allergy Unknown Hives Verified 08/31/24 19:36 prochlorperazine Allergy Unknown Unknown Verified 08/31/24 19:36 [From Compazine] levofloxacin [From Levaquin] AdvReac Unknown Unknown Verified 08/31/24 19:36 sulfacetamide AdvReac Unknown Unknown Verified 08/31/24 19:36 <HECTOR Mark Last Filed: 09/02/24 11:20> Active Medications: Current Medications Acetaminophen (Acetaminophen 325 Mg Tablet) 650 mg PO Q6H PRN PRN Reason: Pain, Mild (Pain Scale 1-3), fever or headache Last Admin: 09/02/24 03:47 Dose: 650 mg Calcium Carbonate (Calcium Carbonate 750 Mg Tab.Chew) 750 mg PO Q4H PRN PRN Reason: Heartburn Dicyclomine HCl (Dicyclomine Hcl 10 Mg Capsule) 10 mg PO BID PRN PRN Reason: abdominal discomfort Enoxaparin Sodium (Enoxaparin Sodium 40 Mg/0.4 Ml Syringe) 40 mg SUBCUT Q24H [facility] Last Admin: 09/02/24 00:36 Dose: Not Given Hydromorphone HCl (Hydromorphone Hcl 1 Mg/Ml Syringe) 1 mg IVPUSH Q4H PRN; Protocol PRN Reason: Pain, Severe (Pain Scale 7-10) Last Admin: 09/01/24 01:34 Dose: 1 mg Lactated Ringer's (Lr) 1,000 mls @ 100 mls/hr IVCONT .Q10H [facility] Last Admin: 09/02/24 03:32 Dose: 100 mls/hr Piperacillin Sod/Tazobactam (Sod 3.375 gm/ Sodium Chloride) 50 mls @ 100 mls/hr IV Q6H [facility] Last Infusion: 09/02/24 04:06 Dose: Infused Ketorolac Tromethamine (Ketorolac Tromethamine 30 Mg/Ml Vial) 15 mg IVPUSH Q6H PRN PRN Reason: Pain, Mild (Pain Scale 1-3) Stop: 09/06/24 01:28 Last Admin: 09/02/24 08:11 Dose: 15 mg Magnesium Hydroxide (Milk Of Magnesia 30 Ml Oral.Susp) 30 ml PO DAILY PRN PRN Reason: Constipation Melatonin (Melatonin 3 Mg Tablet) 6 mg PO BEDTIME PRN PRN Reason: Insomnia Metoclopramide HCl (Metoclopramide Hcl 10 Mg/2 Ml Vial) 10 mg IVPUSH Q6H PRN PRN Reason: Nausea and Vomiting Last Admin: 09/01/24 19:45 Dose: 10 mg Morphine Sulfate (Morphine Sulfate 4 Mg/Ml Cartridge) 4 mg IVPUSH Q4H PRN; Protocol PRN Reason: Pain, Moderate(Pain Scale 4-6) Last Admin: 09/01/24 11:15 Dose: 4 mg Omeprazole (Omeprazole 20 Mg Capsule.Dr) 20 mg PO DAILY@0630 [facility] Last Admin: 09/02/24 06:10 Dose: Not Given Ondansetron HCl (Ondansetron Hcl 4 Mg/2 Ml Vial) 4 mg IVPUSH Q8H PRN PRN Reason: Nausea and Vomiting Last Admin: 09/01/24 15:00 Dose: 4 mg Polyethylene Glycol (Polyethylene Glycol 3350 17 Gm Powd.Pack) 5 gm PO DAILY [facility] Last Admin: 09/02/24 08:11 Dose: 5 gm Sodium Chloride (0.9 % Sodium Chloride Flush 3 Ml Syringe) 3 ml IVFLUSH QSHIFT [facility] Last Admin: 09/02/24 08:12 Dose: 3 ml <HECTOR Mark Last Filed: 09/02/24 11:20> Home medications: Home Medications ?Medication ?Instructions ?Recorded ?Confirmed ?Last Taken ?Type esomeprazole magnesium 40 mg 40 mg PO DAILY 11/29/21 09/01/24 08/31/24 History capsule,delayed release (Nexium) dicyclomine 10 mg capsule 10 mg PO BID PRN Abdominal 09/01/24 09/01/24 08/30/24 History Discomfort fexofenadine 180 mg tablet 180 mg PO DAILY 09/01/24 09/01/24 08/31/24 History polyethylene glycol 3350 17 5 g PO DAILY 09/01/24 09/01/24 08/29/24 History gram/dose oral powder (Miralax) <HECTOR Mark Last Filed: 09/02/24 11:20> Physical Exam 2 Vital Signs: Vital Signs: Last Vital Signs Temp 98 F 09/02/24 07:14 Pulse 80 09/02/24 07:14 Resp 12 09/02/24 07:14 BP 113/63 09/02/24 07:14 Pulse Ox 96 09/02/24 07:14 O2 Del Method Nasal Cannula 09/02/24 07:14 O2 Flow Rate 3 09/02/24 07:14 BMI result Body Mass Index 29.7 <HECTOR Mark Last Filed: 09/02/24 11:20> Const: General: comfortable, no acute distress and alert <HECTOR Mark Last Filed: 09/02/24 11:20> Orientation/consciousness: patient oriented x3 <Suri Vickersau, PA-C Maryam Last Filed: 09/02/24 11:20> Resp: Effort & Inspection: normal respiratory effort <Suri OrtizHECTOR ortega Maryam Last Filed: 09/02/24 11:20> GI: Other: corpulent abdomen <Suri OrtizHECTOR ortega Maryam Last Filed: 09/02/24 11:20> Inspection: No distended and Yes scar (pfannensteil ) <Suri OrtizESTEFANÍA ortegaNilo Francisco Last Filed: 09/02/24 11:20> Palpation (GI): Soft to palpation, Tenderness to palpation present (GI) in the LLQ (moderate) and with rebound tenderness and no guarding <Suri HECTOR Chow Maryam Last Filed: 09/02/24 11:20> Percussion: Yes normal to percussion <Suri OrtizREBECCA ortegaMaryam Maryam Last Filed: 09/02/24 11:20> Skin: General skin exam: no rashes or lesions noted <Suri REBECCA ChowReji Francisco Last Filed: 09/02/24 11:20> Neuro: General: patient oriented x3 and moves all extremities <REBECCA MarkReji Francisco Last Filed: 09/02/24 11:20> Results Labs Result diagrams: 09/02/24 05:45 09/02/24 05:44 <Suri REBECCA ChowReji Francisco Last Filed: 09/02/24 11:20> Labs: Abnormal lab results 09/02/24 09/02/24 Range/Units 05:44 05:45 WBC 14.3 H (4.8-10.8) X10*3/uL Hct 36.2 L D (37.0-47.0) % Immature Gran % (Auto) 1.3 H (0.0-0.4) % Neut % (Auto) 85.7 H (45-73) % Lymph % (Auto) 6.3 L (20-40) % Lymph # (Auto) 0.9 L (1.2-4.9) X10*3/uL Abs Immat Gran (auto) 0.19 H (0.00-0.03) X10*3/uL Absolute Neuts (auto) 12.2 H (2.0-8.3) x10*3/uL BUN 8 L (9-16) mg/dL Random Glucose 133 H (60-115) mg/dL Short CBC 09/02/24 Range/Units 05:45 WBC 14.3 H (4.8-10.8) X10*3/uL Hgb 12.3 D (12.0-16.0) g/dl Hct 36.2 L D (37.0-47.0) % Plt Count 178 (160-400) X10*3/uL BMP 09/02/24 05:44 Sodium 138 Potassium 3.4 Chloride 106 Carbon Dioxide 22 BUN 8 L Creatinine 0.78 Calcium 8.4 D Urine 08/31/24 Range/Units 20:06 Urine Color Yellow Urine Appearance Clear Urine pH 5.0 (5.0-9.0) Ur Specific Adrian 1.025 (1.005-1.025) Urine Protein Negative (Neg-Trace) mg/dL Urine Glucose (UA) Negative (Negative) mg/dL All other labs normal. <Suri Chow PA-C - Last Filed: 09/02/24 11:20> Imaging Abdomen CT scan report/results: report reviewed and image reviewed <HECTOR Mark Last Filed: 09/02/24 11:20> Assessment and Plan (1) Diverticulitis: Status: Acute <Suri Chow PA-C - Last Filed: 09/02/24 11:20> 63 year old female with multiple recurrent episodes of diverticulitis now increasing in frequency and severity. CT scan shows severe sigmoid diverticulosis with surrounding inflammatory changes and phlegmon. She reports improvement in her symptoms this morning. Can continue supportive measures with IV abx, IVF and clear liquids for now. May need prolonged course of IV abx due to phlegmonous changes. If she continues to improve during this stay, can f/u as on an outpatient basis to discuss elective sigmoid resection to prevent recurrence. She is comfortable with plan. Will continue to follow. <Suri Chow PA-C - Last Filed: 09/02/24 11:20> 63 year old female with multiple recurrent episodes of diverticulitis now increasing in frequency and severity. CT scan shows severe sigmoid diverticulosis with surrounding inflammatory changes and phlegmon. She reports improvement in her symptoms this morning. Can continue supportive measures with IV abx, IVF and clear liquids for now. May need prolonged course of IV abx due to phlegmonous changes. If she continues to improve during this stay, can f/u as on an outpatient basis to discuss elective sigmoid resection to prevent recurrence. She is comfortable with plan. Will continue to follow. Patient interviewed and examined independently. CT abdomen and pelvis reviewed as well. Agree with the above findings, assessment and plan. Patient is an excellent candidate for a hand assisted laparoscopic sigmoid colectomy once the current episode resolves. The patient has issues regarding her work which may delay the surgery. I provided her with my card so she can follow-up as an outpatient once discharged. She expressed understanding and agrees with the plan. <Rogelio Portillo MD - Last Filed: 09/02/24 12:43> Procedures Date of Service Date of Service: 09/02/24 <Suri Chow PA-C - Last Filed: 09/02/24 11:20> 09/02/24 <Rogelio Portillo MD - Last Filed: 09/02/24 12:43>
--- NOTE | 2024-09-02 13:16 | MHC.CM.PN ---
SOCIAL SERVICE AGENCY DIRECTOR AND CM MET WITH PT AT BEDSIDE PT LIVES WITH BROTHER AT HER HOME PT DOES NOT RECEIVE SERVICES PT DOES NOT USE DME PT DOES NOT HAVE A HCP AND IS NOT INTERESTED IN FILLING OUT PAPERWORK PT'S PCP IS DR. SHANKS PT'S INSURANCE IS [facility] HOME VIA PRIVATE TRANSPORT
--- NOTE | 2024-09-02 14:04 | HO.PM.IMPN ---
Subjective Subjective Date of Service: 09/02/24 Interval History: seen and examined this morning follow up for diverticulitis fever overnight and did not feel well but feeling better this am no nausea or vomiting Review of Systems Review of Systems: Yes all other systems are reviewed and are negative Constitutional Constitutional: Denies chills and Denies fever(s) Cardiovascular Cardiovascular: Denies chest pain and Denies palpitations Gastrointestinal Gastrointestinal: Reports abdominal pain, Denies nausea and Denies vomiting Endocrine Endocrine: Denies palpitations Physical Exam Vital Signs: Vital Signs: Last Vital Signs Temp 97.5 F 09/02/24 11:49 Pulse 117 H 09/02/24 11:49 Resp 16 09/02/24 11:49 BP 110/66 09/02/24 11:49 Pulse Ox 98 09/02/24 11:49 O2 Del Method Room Air 09/02/24 11:49 O2 Flow Rate 3 09/02/24 07:14 BMI result Body Mass Index 29.7 Const: General: cooperative, comfortable, no acute distress, alert and awake Nutritional Appearance: average body habitus Orientation/consciousness: patient oriented x3 Resp: Effort & Inspection: normal respiratory effort, able to speak in complete sentences, no respiratory distress and no use of accessory muscles Auscultation: clear to auscultation bilaterally Cardio: Rate: regular rate GI: Other: mild tenderness LLQ Inspection: No distended Palpation (GI): Soft to palpation Neuro: General: patient oriented x3, moves all extremities and CN's II-XI intact bilaterally Extrem: General: Yes no pedal edema Objective Data Active Medications Acetaminophen (Acetaminophen 325 Mg Tablet) 650 mg PO Q6H PRN PRN Reason: Pain, Mild (Pain Scale 1-3), fever or headache Last Admin: 09/02/24 03:47 Dose: 650 mg Documented By: ANDREAS Calcium Carbonate (Calcium Carbonate 750 Mg Tab.Chew) 750 mg PO Q4H PRN PRN Reason: Heartburn Dicyclomine HCl (Dicyclomine Hcl 10 Mg Capsule) 10 mg PO BID PRN PRN Reason: abdominal discomfort Enoxaparin Sodium (Enoxaparin Sodium 40 Mg/0.4 Ml Syringe) 40 mg SUBCUT Q24H [facility] Last Admin: 09/02/24 00:36 Dose: Not Given Documented By: ANDREAS Non-Admin Reason: Patient Refused Hydromorphone HCl (Hydromorphone Hcl 1 Mg/Ml Syringe) 1 mg IVPUSH Q4H PRN; Protocol PRN Reason: Pain, Severe (Pain Scale 7-10) Last Admin: 09/01/24 01:34 Dose: 1 mg Documented By: ESTEBAN Lactated Ringer's (Lr) 1,000 mls @ 100 mls/hr IVCONT .Q10H [facility] Last Admin: 09/02/24 03:32 Dose: 100 mls/hr Documented By: ANDREAS Piperacillin Sod/Tazobactam (Sod 3.375 gm/ Sodium Chloride) 50 mls @ 100 mls/hr IV Q6H [facility] Last Infusion: 09/02/24 11:55 Dose: Infused Documented By: OLI Ketorolac Tromethamine (Ketorolac Tromethamine 30 Mg/Ml Vial) 15 mg IVPUSH Q6H PRN PRN Reason: Pain, Mild (Pain Scale 1-3) Stop: 09/06/24 01:28 Last Admin: 09/02/24 08:11 Dose: 15 mg Documented By: OLI Magnesium Hydroxide (Milk Of Magnesia 30 Ml Oral.Susp) 30 ml PO DAILY PRN PRN Reason: Constipation Melatonin (Melatonin 3 Mg Tablet) 6 mg PO BEDTIME PRN PRN Reason: Insomnia Metoclopramide HCl (Metoclopramide Hcl 10 Mg/2 Ml Vial) 10 mg IVPUSH Q6H PRN PRN Reason: Nausea and Vomiting Last Admin: 09/01/24 19:45 Dose: 10 mg Documented By: ANDREAS Morphine Sulfate (Morphine Sulfate 4 Mg/Ml Cartridge) 4 mg IVPUSH Q4H PRN; Protocol PRN Reason: Pain, Moderate(Pain Scale 4-6) Last Admin: 09/01/24 11:15 Dose: 4 mg Documented By: PAUL Omeprazole (Omeprazole 20 Mg Capsule.Dr) 20 mg PO DAILY@0630 [facility] Last Admin: 09/02/24 06:10 Dose: Not Given Documented By: ANDREAS Non-Admin Reason: Patient Asleep Ondansetron HCl (Ondansetron Hcl 4 Mg/2 Ml Vial) 4 mg IVPUSH Q8H PRN PRN Reason: Nausea and Vomiting Last Admin: 09/01/24 15:00 Dose: 4 mg Documented By: JAJA Polyethylene Glycol (Polyethylene Glycol 3350 17 Gm Powd.Pack) 5 gm PO DAILY [facility] Last Admin: 09/02/24 08:11 Dose: 5 gm Documented By: OLI Sodium Chloride (0.9 % Sodium Chloride Flush 3 Ml Syringe) 3 ml IVFLUSH QSHIFT [facility] Last Admin: 09/02/24 08:12 Dose: 3 ml Documented By: OLI Labs 09/02/24 05:45 09/02/24 05:44 Labs: Laboratory Results - last 24 hr 09/02/24 09/02/24 05:44 05:45 MCV 85.0 MCH 28.9 MCHC 34.0 RDW 12.6 Plt Count 178 MPV 9.9 Immature Gran % (Auto) 1.3 H Neut % (Auto) 85.7 H Lymph % (Auto) 6.3 L [place] % (Auto) 6.4 Eos % (Auto) 0.0 Baso % (Auto) 0.3 Lymph # (Auto) 0.9 L [place] # (Auto) 0.9 Eos # (Auto) 0.0 Baso # (Auto) 0.0 Abs Immat Gran (auto) 0.19 H Absolute Neuts (auto) 12.2 H Absolute Nucleated RBC 0.000 Nucleated RBC % (auto) 0.0 Anion Gap 13 Estim Creat Clear Calc 78.6 Estimated GFR > 60 Random Glucose 133 H Calcium 8.4 D Microbiology Microbiology Results: Microbiology 09/01/24 01:55 Blood Culture - Preliminary Blood - Venous No growth after 24 hours. 09/01/24 01:55 Blood Culture - Preliminary Blood - Venous No growth after 24 hours. Assessment and Plan (1) Diverticulitis: Status: Acute Plan Patient is a 63-year-old female with a medical history significant for IBS, GERD and diverticulitis, presented to the ED today for left lower quadrant pain and suspected diverticulitis. Ddx includes diverticulitis, colitis, gastroenteritis sepsis secondary to complicated sigmoid diverticulitis had fever overnight, persistent leukocytosis, intermittent tachycardia - A/P CT with sigmoid diverticulitis and phlegmonous changes - continue IVF - full liquid diet - blood cultures negative to date (although IV abx already started when drawn) - continue zosyn - surgery following due to 3rd episode of diverticulitis-we will need outpatient follow-up scheduled outpatient colonoscopy postponed due to hospitalization full code VTE prophy: lovenox Requires ongoing inpatient stay for IV antibiotics Quality Stroke Does the patient have a stroke diagnosis?: No VTE Prior VTE?: No VTE Risk Level:: Medical - moderate - high VTE Device Contraindication: Treatment Not Indicated VTE Drug Contraindication: N/A - Med Ordered
[2024-09-02] MEDS: Metoclopramide HCl 10 MG/2 ML VIAL IVPUSH (14:08)
[2024-09-02] MEDS: Morphine Sulfate 4 MG/ML CARTRIDGE IVPUSH (14:11)
[2024-09-02] MEDS: Loratadine 10 MG TABLET PO (15:00)
--- NOTE | 2024-09-02 22:00 | PC.NURSE ---
Pt's temperature 103.2 orally medicated with [address]Gomez bernardo[address]
--- NOTE | 2024-09-02 23:42 | PC.NURSE ---
Pt's temperature down 98.9 orally.
[2024-09-03] VITALS (8 sets, daily range): BP systolic 108–136; BP diastolic 60–69; PULSE 68–104; RESP 16–20; TEMP 36.6–37.9; O2SAT 94–97
[2024-09-03] MEDS: Lactated Ringers 1,000 ML 100 ML IVCONT (01:42)
[2024-09-03] MEDS: Piperacillin Sodium/Tazobactam 3.375 GM in 0.9 % Sodium Chloride 50 ML IV ×4 (03:42→21:45)
[2024-09-03] MEDS: Omeprazole 20 MG CAPSULE.DR PO (05:41)
[2024-09-03 06:32] LABS: MANUAL DIFF FLAG NO
[2024-09-03 06:40] LABS: Basophils Percent Auto 0.2 % (0-2); Eosinophils Percent Auto 0.1 % (0-4); Imm Gran Abs Auto 0.15 X10*3/uL (0.00-0.03); Imm Gran Pct Auto 1.1 % (0.0-0.4); Lymphocytes Absolute Auto 1.2 X10*3/uL (1.2-4.9); Lymphocytes Percent Auto 8.8 % (20-40); Mean Corpuscular HGB Conc 34.3 g/dl (31.0-35.0); Mean Corpuscular Volume 84.5 fL (80.0-98.0); Mean Platelet Volume 9.5 fL (9.4-12.3); Monocytes Absolute Auto 0.5 X10*3/uL (0.1-1.2); Monocytes Percent Auto 3.6 % (2-11); Neutrophils Absolute Auto 11.9 x10*3/uL (2.0-8.3); Neutrophils Percent Auto 86.2 % (45-73); Platelet Count 167 X10*3/uL (160-400); Red Blood Count 4.14 X10*6/uL (4.20-5.50); Red Cell Distribution Width 12.8 % (11.0-16.0); White Blood Count 13.8 X10*3/uL (4.8-10.8)
[2024-09-03 06:58] LABS: Anion Gap 10 (12-20); Blood Urea Nitrogen 9 mg/dL (9-16); Calcium 8.2 mg/dL (8.4-10.2); Carbon Dioxide 26 mmol/L (22-29); Chloride 106 mmol/L (96-108); Creatinine Clr Calc Pharmacy 94.4; Estimated Glomerular Filt Rate > 60; Glucose Random 122 mg/dL (60-115); Potassium 3.2 mmol/L (3.3-5.1); Sodium 139 mmol/L (135-145)
[2024-09-03] MEDS: Potassium Chloride ER 20 MEQ TAB.ER.PRT 40 MEQ PO (08:19)
[2024-09-03] MEDS: Loratadine 10 MG TABLET PO (08:20)
[2024-09-03] MEDS: Ketorolac Tromethamine 30 MG/ML VIAL 15 MG IVPUSH ×2 (08:20→21:50)
[2024-09-03] MEDS: 0.9 % Sodium Chloride Flush 3 ML SYRINGE IVFLUSH ×3 (08:21→22:36)
--- NOTE | 2024-09-03 09:18 | P.PNIM_ITS ---
Subjective Subjective Date of Service: 09/03/24 Interval History: seen and examined this morning follow up for diverticulitis fever overnight now having diarrhea no nausea or vomiting Review of Systems Review of Systems: Yes all other systems are reviewed and are negative Constitutional Constitutional: Denies chills and Denies fever(s) Cardiovascular Cardiovascular: Denies chest pain and Denies palpitations Gastrointestinal Gastrointestinal: Reports abdominal pain, Denies nausea and Denies vomiting Endocrine Endocrine: Denies palpitations Physical Exam 2 Vital Signs: Vital Signs: Last Vital Signs Temp 99.9 F 09/03/24 07:08 Pulse 81 09/03/24 07:08 Resp 16 09/03/24 07:08 BP 126/64 09/03/24 07:08 Pulse Ox 97 09/03/24 07:08 O2 Del Method Room Air 09/03/24 07:08 O2 Flow Rate 3 09/02/24 07:14 BMI result Body Mass Index 29.7 Appearing in no acute distress lung sounds are clear to auscultation heart regular rate rhythm, clear S1, S2 positive bowel sounds, abdomen is soft, nontender neuro patient is alert x3, no focal deficits Objective Data Active Medications Acetaminophen (Acetaminophen 325 Mg Tablet) 650 mg PO Q6H PRN PRN Reason: Pain, Mild (Pain Scale 1-3), fever or headache Last Admin: 09/02/24 21:42 Dose: 650 mg Documented By: RHIANNA Calcium Carbonate (Calcium Carbonate 750 Mg Tab.Chew) 750 mg PO Q4H PRN PRN Reason: Heartburn Dicyclomine HCl (Dicyclomine Hcl 10 Mg Capsule) 10 mg PO BID PRN PRN Reason: abdominal discomfort Enoxaparin Sodium (Enoxaparin Sodium 40 Mg/0.4 Ml Syringe) 40 mg SUBCUT Q24H [facility] Last Admin: 09/03/24 01:45 Dose: Not Given Documented By: RHIANNA Non-Admin Reason: Patient Refused Hydromorphone HCl (Hydromorphone Hcl 1 Mg/Ml Syringe) 1 mg IVPUSH Q4H PRN; Protocol PRN Reason: Pain, Severe (Pain Scale 7-10) Last Admin: 09/01/24 01:34 Dose: 1 mg Documented By: ESTEBAN Piperacillin Sod/Tazobactam (Sod 3.375 gm/ Sodium Chloride) 50 mls @ 100 mls/hr IV Q6H [facility] Last Infusion: 09/03/24 04:15 Dose: Infused Documented By: RHIANNA Ketorolac Tromethamine (Ketorolac Tromethamine 30 Mg/Ml Vial) 15 mg IVPUSH Q6H PRN PRN Reason: Pain, Mild (Pain Scale 1-3) Stop: 09/06/24 01:28 Last Admin: 09/03/24 08:20 Dose: 15 mg Documented By: DEX Loratadine (Loratadine 10 Mg Tablet) 10 mg PO DAILY [facility] Last Admin: 09/03/24 08:20 Dose: 10 mg Documented By: DEX Magnesium Hydroxide (Milk Of Magnesia 30 Ml Oral.Susp) 30 ml PO DAILY PRN PRN Reason: Constipation Melatonin (Melatonin 3 Mg Tablet) 6 mg PO BEDTIME PRN PRN Reason: Insomnia Metoclopramide HCl (Metoclopramide Hcl 10 Mg/2 Ml Vial) 10 mg IVPUSH Q6H PRN PRN Reason: Nausea and Vomiting Last Admin: 09/02/24 14:08 Dose: 10 mg Documented By: OLI Morphine Sulfate (Morphine Sulfate 4 Mg/Ml Cartridge) 4 mg IVPUSH Q4H PRN; Protocol PRN Reason: Pain, Moderate(Pain Scale 4-6) Last Admin: 09/02/24 14:11 Dose: 4 mg Documented By: OLI Omeprazole (Omeprazole 20 Mg Capsule.Dr) 20 mg PO DAILY@0630 [facility] Last Admin: 09/03/24 05:41 Dose: 20 mg Documented By: RHIANNA Ondansetron HCl (Ondansetron Hcl 4 Mg/2 Ml Vial) 4 mg IVPUSH Q8H PRN PRN Reason: Nausea and Vomiting Last Admin: 09/01/24 15:00 Dose: 4 mg Documented By: JAJA Polyethylene Glycol (Polyethylene Glycol 3350 17 Gm Powd.Pack) 5 gm PO DAILY [facility] Last Admin: 09/03/24 08:31 Dose: Not Given Documented By: DEX Non-Admin Reason: Patient refused. C/o diarrhea. Sodium Chloride (0.9 % Sodium Chloride Flush 3 Ml Syringe) 3 ml IVFLUSH QSHIFT [facility] Last Admin: 09/03/24 08:21 Dose: 3 ml Documented By: DEX Labs 09/03/24 05:37 09/03/24 05:37 Labs: Laboratory Results - last 24 hr 09/03/24 05:37 MCV 84.5 MCH 29.0 MCHC 34.3 RDW 12.8 Plt Count 167 MPV 9.5 Immature Gran % (Auto) 1.1 H Neut % (Auto) 86.2 H Lymph % (Auto) 8.8 L [place] % (Auto) 3.6 Eos % (Auto) 0.1 Baso % (Auto) 0.2 Lymph # (Auto) 1.2 [place] # (Auto) 0.5 Eos # (Auto) 0.0 Baso # (Auto) 0.0 Abs Immat Gran (auto) 0.15 H Absolute Neuts (auto) 11.9 H Absolute Nucleated RBC 0.000 Nucleated RBC % (auto) 0.0 Anion Gap 10 L Estim Creat Clear Calc 94.4 Estimated GFR > 60 Random Glucose 122 H Calcium 8.2 L Microbiology Microbiology Results: Microbiology 09/01/24 01:55 Blood Culture - Preliminary Blood - Venous No growth after 48 hours. 09/01/24 01:55 Blood Culture - Preliminary Blood - Venous No growth after 48 hours. Assessment and Plan (1) Diverticulitis: Status: Acute Plan 63-year-old female with a medical history significant for IBS, GERD and diverticulitis, presented to the ED today for left lower quadrant pain and suspected diverticulitis. Ddx includes diverticulitis, colitis, gastroenteritis Sepsis secondary to complicated sigmoid diverticulitis had fever overnight, persistent leukocytosis, intermittent tachycardia A/P CT with sigmoid diverticulitis and phlegmonous changes full liquid diet, advance as tolerated blood cultures negative to date (although IV abx already started when drawn) continue zosyn surgery following due to 3rd episode of diverticulitis-we will need outpatient follow-up Hypokalemia Replete full code VTE prophy: lovenox Requires ongoing inpatient stay for IV antibiotics Quality Stroke Does the patient have a stroke diagnosis?: No VTE Prior VTE?: No VTE Risk Level:: Medical - moderate - high VTE Device Contraindication: Treatment Not Indicated VTE Drug Contraindication: N/A - Med Ordered
--- NOTE | 2024-09-03 11:04 | PC.NURSE ---
1045- patient has penicillins listed as allergy. Discuss this with patient. Patient reports allergy is from when she was 7 years old and has not had a problem with penicillins since then. Pharmacy contacted- [facility] by pharmacy for administration. Patient requesting penicillins be removed from allergy list. Hospitalist notified.
[2024-09-03 11:10] LABS: CDiff Gene PCR NEGATIVE (Negative)
[2024-09-03] MEDS: Acetaminophen 325 MG TABLET 650 MG PO (16:31)
[2024-09-04] MEDS: Piperacillin Sodium/Tazobactam 3.375 GM in 0.9 % Sodium Chloride 50 ML IV ×2 (03:36→12:25)
[2024-09-04 03:50] VITALS: BP 161/71; PULSE 107; RESP 20; TEMP 38.7; O2SAT 93
[2024-09-04] MEDS: Omeprazole 20 MG CAPSULE.DR PO (04:10)
[2024-09-04] MEDS: Acetaminophen 325 MG TABLET 650 MG PO ×3 (04:10→20:36)
--- NOTE | 2024-09-04 04:12 | PC.NURSE ---
Pt's temperature 101.7 medicated with 2 tylenol
[2024-09-04 05:54] VITALS: TEMP 37.1
[2024-09-04 06:59] VITALS: BP 139/77; PULSE 96; RESP 18; TEMP 36.6; O2SAT 95
[2024-09-04] MEDS: Loratadine 10 MG TABLET PO (08:16)
[2024-09-04] MEDS: Ketorolac Tromethamine 30 MG/ML VIAL 15 MG IVPUSH ×2 (08:16→18:29)
[2024-09-04] MEDS: 0.9 % Sodium Chloride Flush 3 ML SYRINGE IVFLUSH ×3 (08:21→23:24)
--- NOTE | 2024-09-04 10:42 | HO.PM.IMPN ---
Subjective Subjective Date of Service: 09/04/24 Interval History: seen and examined this morning follow up for diverticulitis fever overnight now having diarrhea no nausea or vomiting Review of Systems Review of Systems: Yes all other systems are reviewed and are negative Constitutional Constitutional: Denies chills and Denies fever(s) Cardiovascular Cardiovascular: Denies chest pain and Denies palpitations Gastrointestinal Gastrointestinal: Reports abdominal pain, Denies nausea and Denies vomiting Endocrine Endocrine: Denies palpitations Physical Exam Vital Signs: Vital Signs: Last Vital Signs Temp 97.9 F 09/04/24 06:59 Pulse 96 09/04/24 06:59 Resp 18 09/04/24 06:59 BP 139/77 09/04/24 06:59 Pulse Ox 95 09/04/24 06:59 O2 Del Method Room Air 09/04/24 06:59 O2 Flow Rate 3 09/02/24 07:14 BMI result Body Mass Index 29.7 Objective Data Active Medications Acetaminophen (Acetaminophen 325 Mg Tablet) 650 mg PO Q6H PRN PRN Reason: Pain, Mild (Pain Scale 1-3), fever or headache Last Admin: 09/04/24 04:10 Dose: 650 mg Documented By: RHIANNA Calcium Carbonate (Calcium Carbonate 750 Mg Tab.Chew) 750 mg PO Q4H PRN PRN Reason: Heartburn Dicyclomine HCl (Dicyclomine Hcl 10 Mg Capsule) 10 mg PO BID PRN PRN Reason: abdominal discomfort Enoxaparin Sodium (Enoxaparin Sodium 40 Mg/0.4 Ml Syringe) 40 mg SUBCUT Q24H [facility] Last Admin: 09/04/24 01:58 Dose: Not Given Documented By: RHIANNA Non-Admin Reason: Patient Refused Hydromorphone HCl (Hydromorphone Hcl 1 Mg/Ml Syringe) 1 mg IVPUSH Q4H PRN; Protocol PRN Reason: Pain, Severe (Pain Scale 7-10) Last Admin: 09/01/24 01:34 Dose: 1 mg Documented By: ESTEBAN Piperacillin Sod/Tazobactam (Sod 3.375 gm/ Sodium Chloride) 50 mls @ 100 mls/hr IV Q6H [facility] Last Infusion: 09/04/24 04:11 Dose: Infused Documented By: RHIANNA Ketorolac Tromethamine (Ketorolac Tromethamine 30 Mg/Ml Vial) 15 mg IVPUSH Q6H PRN PRN Reason: Pain, Mild (Pain Scale 1-3) Stop: 09/06/24 01:28 Last Admin: 09/04/24 08:16 Dose: 15 mg Documented By: DEX Loratadine (Loratadine 10 Mg Tablet) 10 mg PO DAILY [facility] Last Admin: 09/04/24 08:16 Dose: 10 mg Documented By: DEX Magnesium Hydroxide (Milk Of Magnesia 30 Ml Oral.Susp) 30 ml PO DAILY PRN PRN Reason: Constipation Melatonin (Melatonin 3 Mg Tablet) 6 mg PO BEDTIME PRN PRN Reason: Insomnia Metoclopramide HCl (Metoclopramide Hcl 10 Mg/2 Ml Vial) 10 mg IVPUSH Q6H PRN PRN Reason: Nausea and Vomiting Last Admin: 09/02/24 14:08 Dose: 10 mg Documented By: OLI Morphine Sulfate (Morphine Sulfate 4 Mg/Ml Cartridge) 4 mg IVPUSH Q4H PRN; Protocol PRN Reason: Pain, Moderate(Pain Scale 4-6) Last Admin: 09/02/24 14:11 Dose: 4 mg Documented By: OLI Omeprazole (Omeprazole 20 Mg Capsule.Dr) 20 mg PO DAILY@0630 [facility] Last Admin: 09/04/24 04:10 Dose: 20 mg Documented By: RHIANNA Ondansetron HCl (Ondansetron Hcl 4 Mg/2 Ml Vial) 4 mg IVPUSH Q8H PRN PRN Reason: Nausea and Vomiting Last Admin: 09/01/24 15:00 Dose: 4 mg Documented By: JAJA Polyethylene Glycol (Polyethylene Glycol 3350 17 Gm Powd.Pack) 5 gm PO DAILY [facility] Last Admin: 09/04/24 09:22 Dose: Not Given Documented By: DEX Non-Admin Reason: Patient refused. C/o diarrhea 09/03. Sodium Chloride (0.9 % Sodium Chloride Flush 3 Ml Syringe) 3 ml IVFLUSH QSHIFT [facility] Last Admin: 09/04/24 08:21 Dose: 3 ml Documented By: DEX Labs 09/03/24 05:37 09/03/24 05:37 Labs: Laboratory Results - last 24 hr 09/03/24 09:42 C. difficile Tox B Gene NEGATIVE Assessment and Plan (1) Diverticulitis: Status: Acute Plan 63-year-old female with a medical history significant for IBS, GERD and diverticulitis, presented to the ED today for left lower quadrant pain and suspected diverticulitis. Ddx includes diverticulitis, colitis, gastroenteritis Sepsis secondary to complicated sigmoid diverticulitis A/P CT with sigmoid diverticulitis and phlegmonous changes full liquid diet, advance as tolerated blood cultures negative to date (although IV abx already started when drawn) continue zosyn continues to have fevers, abd ct repeated today, results pending surgery following Hypokalemia Replete full code VTE prophy: lovenox Requires ongoing inpatient stay for IV antibiotics Quality Stroke Does the patient have a stroke diagnosis?: No VTE Prior VTE?: No VTE Risk Level:: Medical - moderate - high VTE Device Contraindication: Treatment Not Indicated VTE Drug Contraindication: N/A - Med Ordered
--- NOTE | 2024-09-04 11:19 | PC.NURSE ---
1030- patient refusing zosyn at this time. Madiha Giang aware.
[2024-09-04 11:59] LABS: Anion Gap 11 (12-20); Blood Urea Nitrogen 7 mg/dL (9-16); Calcium 8.4 mg/dL (8.4-10.2); Carbon Dioxide 27 mmol/L (22-29); Chloride 106 mmol/L (96-108); Creatinine Clr Calc Pharmacy 97.3; Estimated Glomerular Filt Rate > 60; Glucose Random 112 mg/dL (60-115); Potassium 3.1 mmol/L (3.3-5.1); Sodium 141 mmol/L (135-145)
[2024-09-04 12:00] LABS: Lactic Acid 1.1 mmol/L (0.5-2.0)
[2024-09-04] MEDS: Meropenem 1 GM VIAL IVPUSH ×2 (13:45→20:36)
--- NOTE | 2024-09-04 14:00 | PC.NURSE ---
Provider Madiha Giang met with patient at bedside to discuss test results and plan of care. Primary care RN spoke with patient after meeting with provider. Patient agreeable to take zosyn. Antibiotic re-timed and administered. New antibiotic Meropenem added to regimen. Medication reviewed with patient and information printout provided. All questions answered. No further questions at this time. Patient agreeable for medication administration.
[2024-09-04] MEDS: Potassium Chloride ER 20 MEQ TAB.ER.PRT 40 MEQ PO (15:04)
[2024-09-04 15:55] VITALS: BP 116/70; PULSE 95; RESP 16; TEMP 36.7; O2SAT 95
[2024-09-04 19:42] VITALS: BP 134/72; PULSE 88; RESP 20; TEMP 37.2; O2SAT 94
[2024-09-04 21:40] VITALS: RESP 16
[2024-09-05] VITALS (25 sets, daily range): BP systolic 106–161; BP diastolic 57–88; PULSE 69–88; RESP 16–69; TEMP 36.7–37.9; O2SAT 92–99
[2024-09-05] MEDS: Meropenem 1 GM VIAL IVPUSH ×3 (05:50→20:25)
[2024-09-05] MEDS: Acetaminophen 1,000 MG/100 ML PIGGYBACK 400 MG IV (06:26)
[2024-09-05] MEDS: 0.9 % Sodium Chloride Flush 3 ML SYRINGE IVFLUSH ×2 (08:09→17:05)
--- NOTE | 2024-09-05 08:34 | P.PNIM_ITS ---
Subjective Subjective Date of Service: 09/05/24 Interval History: seen and examined this morning follow up for diverticulitis no fever overnight still with some diarrhea no nausea or vomiting Review of Systems Review of Systems: Yes all other systems are reviewed and are negative Constitutional Constitutional: Denies chills and Denies fever(s) Cardiovascular Cardiovascular: Denies chest pain and Denies palpitations Gastrointestinal Gastrointestinal: Reports abdominal pain, Denies nausea and Denies vomiting Endocrine Endocrine: Denies palpitations Physical Exam 2 Vital Signs: Vital Signs: Last Vital Signs Temp 99.2 F 09/05/24 07:20 Pulse 84 09/05/24 07:20 Resp 16 09/05/24 07:20 BP 142/74 H 09/05/24 07:20 Pulse Ox 94 09/05/24 07:20 O2 Del Method Room Air 09/05/24 07:20 O2 Flow Rate 3 09/02/24 07:14 BMI result Body Mass Index 29.7 Objective Data Active Medications Acetaminophen (Acetaminophen 325 Mg Tablet) 975 mg PO Q6H PRN PRN Reason: Pain, Mild (Pain Scale 1-3), fever or headache Calcium Carbonate (Calcium Carbonate 750 Mg Tab.Chew) 750 mg PO Q4H PRN PRN Reason: Heartburn Dicyclomine HCl (Dicyclomine Hcl 10 Mg Capsule) 10 mg PO BID PRN PRN Reason: abdominal discomfort Enoxaparin Sodium (Enoxaparin Sodium 40 Mg/0.4 Ml Syringe) 40 mg SUBCUT Q24H [facility] Last Admin: 09/05/24 01:23 Dose: Not Given Documented By: RENEA Non-Admin Reason: Patient Refused Hydromorphone HCl (Hydromorphone Hcl 1 Mg/Ml Syringe) 1 mg IVPUSH Q4H PRN; Protocol PRN Reason: Pain, Severe (Pain Scale 7-10) Last Admin: 09/01/24 01:34 Dose: 1 mg Documented By: ESTEBAN Loratadine (Loratadine 10 Mg Tablet) 10 mg PO DAILY [facility] Last Admin: 09/05/24 08:02 Dose: Not Given Documented By: FAUSTINO Non-Admin Reason: NPO Magnesium Hydroxide (Milk Of Magnesia 30 Ml Oral.Susp) 30 ml PO DAILY PRN PRN Reason: Constipation Melatonin (Melatonin 3 Mg Tablet) 6 mg PO BEDTIME PRN PRN Reason: Insomnia Meropenem (Meropenem 1 Gm Vial) 1 gm IVPUSH Q8H [facility] Last Admin: 09/05/24 05:50 Dose: 1 gm Documented By: RENEA Metoclopramide HCl (Metoclopramide Hcl 10 Mg/2 Ml Vial) 10 mg IVPUSH Q6H PRN PRN Reason: Nausea and Vomiting Last Admin: 09/02/24 14:08 Dose: 10 mg Documented By: OLI Morphine Sulfate (Morphine Sulfate 4 Mg/Ml Cartridge) 4 mg IVPUSH Q4H PRN; Protocol PRN Reason: Pain, Moderate(Pain Scale 4-6) Last Admin: 09/02/24 14:11 Dose: 4 mg Documented By: OLI Omeprazole (Omeprazole 20 Mg Capsule.Dr) 20 mg PO DAILY@0630 [facility] Last Admin: 09/05/24 06:10 Dose: Not Given Documented By: RENEA Non-Admin Reason: NPO Ondansetron HCl (Ondansetron Hcl 4 Mg/2 Ml Vial) 4 mg IVPUSH Q8H PRN PRN Reason: Nausea and Vomiting Last Admin: 09/01/24 15:00 Dose: 4 mg Documented By: JAJA Polyethylene Glycol (Polyethylene Glycol 3350 17 Gm Powd.Pack) 5 gm PO DAILY [facility] Last Admin: 09/05/24 08:02 Dose: Not Given Documented By: FAUSTINO Non-Admin Reason: NPO Sodium Chloride (0.9 % Sodium Chloride Flush 3 Ml Syringe) 3 ml IVFLUSH QSHIFT [facility] Last Admin: 09/05/24 08:09 Dose: 3 ml Documented By: FAUSTINO Labs 09/03/24 05:37 09/04/24 11:33 Labs: Laboratory Results - last 24 hr 09/04/24 09/04/24 11:33 11:39 Hold Purple Top SEE NOTE Anion Gap 11 L Estim Creat Clear Calc 97.3 Estimated GFR > 60 Random Glucose 112 Lactic Acid 1.1 Calcium 8.4 Assessment and Plan (1) Diverticulitis: Status: Acute Plan 63-year-old female with a medical history significant for IBS, GERD and diverticulitis, presented to the ED today for left lower quadrant pain and suspected diverticulitis. Ddx includes diverticulitis, colitis, gastroenteritis Sepsis secondary to complicated sigmoid diverticulitis A/P CT with sigmoid diverticulitis and phlegmonous changes full liquid diet, advance as tolerated blood cultures negative to date (although IV abx already started when drawn) continues to have fevers, abd ct showed abscess formation, plan for IR drainage today surgery following Hypokalemia Repleted full code VTE prophy: lovenox Requires ongoing inpatient stay for IV antibiotics Quality Stroke Does the patient have a stroke diagnosis?: No VTE Prior VTE?: No VTE Risk Level:: Medical - moderate - high VTE Device Contraindication: Treatment Not Indicated VTE Drug Contraindication: N/A - Med Ordered
[2024-09-05] MEDS: LORazepam 1 MG TABLET PO (09:43)
--- NOTE | 2024-09-05 10:17 | MHC.CM.PN ---
PER MD ROUNDS, ABSCESS DRAIN PLANNED FOR TODAY DCP REMAINS HOME WITH NO SERVICES VIA PRIVATE TRANSPORT
[2024-09-05] MEDS: fentaNYL citrate/PF 100 MCG/2 ML VIAL 50 MCG IVPUSH ×2 (11:28→11:43)
[2024-09-05] MEDS: Midazolam HCl/PF 2 MG/2 ML VIAL 1 MG IVPUSH ×2 (11:30→11:44)
--- NOTE | 2024-09-05 12:04 | PM.PROC ---
Brief Operative Note Date of procedure: 09/05/24 Pre-op diagnosis: Diverticular abscess Post-op diagnosis: same Procedure: CT drainage of diverticular abscess Contrast enhanced preprocedure CT demonstrates complex multiloculated left pelvic abscess 8 fr drain placed. 10 cc purulent fluid removed and sent for culture. No immediate complications.
[2024-09-05] MEDS: Morphine Sulfate 4 MG/ML CARTRIDGE IVPUSH ×2 (13:17→17:41)
[2024-09-05] MEDS: ondansetron HCL 4 MG/2 ML VIAL IVPUSH (13:20)
[2024-09-05] MEDS: Acetaminophen 325 MG TABLET 975 MG PO (15:23)
--- NOTE | 2024-09-05 16:23 | PC.NURSE ---
Clarified drain maintenance orders with Dr. Elias. stated no need to flush NEGRO drain and pt education only needed on emptying.
[2024-09-06] MEDS: 0.9 % Sodium Chloride Flush 3 ML SYRINGE IVFLUSH ×4 (00:55→20:25)
[2024-09-06] MEDS: Acetaminophen 325 MG TABLET 975 MG PO ×3 (03:31→18:34)
[2024-09-06 03:51] VITALS: BP 139/67; PULSE 93; RESP 20; TEMP 38.8; O2SAT 92
[2024-09-06] MEDS: Omeprazole 20 MG CAPSULE.DR PO (05:43)
[2024-09-06] MEDS: Meropenem 1 GM VIAL IVPUSH ×3 (05:44→20:24)
[2024-09-06 06:10] VITALS: TEMP 37.7
[2024-09-06 07:28] VITALS: BP 131/73; PULSE 80; RESP 16; TEMP 36.7; O2SAT 94
--- NOTE | 2024-09-06 08:28 | HO.PM.IMPN ---
Subjective Subjective Date of Service: 09/06/24 Interval History: seen and examined this morning follow up for diverticulitis fever overnight still with some diarrhea no nausea or vomiting Review of Systems Review of Systems: Yes all other systems are reviewed and are negative Constitutional Constitutional: Denies chills and Denies fever(s) Cardiovascular Cardiovascular: Denies chest pain and Denies palpitations Gastrointestinal Gastrointestinal: Reports abdominal pain, Denies nausea and Denies vomiting Endocrine Endocrine: Denies palpitations Physical Exam Vital Signs: Vital Signs: Last Vital Signs Temp 98.1 F 09/06/24 07:28 Pulse 80 09/06/24 07:28 Resp 16 09/06/24 07:28 BP 131/73 09/06/24 07:28 Pulse Ox 94 09/06/24 07:28 O2 Del Method Room Air 09/06/24 07:28 O2 Flow Rate 2 09/05/24 11:55 BMI result Body Mass Index 29.7 Appearing in no acute distress lung sounds are clear to auscultation heart regular rate rhythm, clear S1, S2 positive bowel sounds, abdomen is soft, nontender neuro patient is alert x3, no focal deficits Objective Data Active Medications Acetaminophen (Acetaminophen 325 Mg Tablet) 975 mg PO Q6H PRN PRN Reason: Pain, Mild (Pain Scale 1-3), fever or headache Last Admin: 09/06/24 03:31 Dose: 975 mg Documented By: ADELINE Calcium Carbonate (Calcium Carbonate 750 Mg Tab.Chew) 750 mg PO Q4H PRN PRN Reason: Heartburn Dicyclomine HCl (Dicyclomine Hcl 10 Mg Capsule) 10 mg PO BID PRN PRN Reason: abdominal discomfort Enoxaparin Sodium (Enoxaparin Sodium 40 Mg/0.4 Ml Syringe) 40 mg SUBCUT Q24H [facility] Last Admin: 09/05/24 23:33 Dose: Not Given Documented By: ADELINE Non-Admin Reason: Patient Refused Hydromorphone HCl (Hydromorphone Hcl 1 Mg/Ml Syringe) 1 mg IVPUSH Q4H PRN; Protocol PRN Reason: Pain, Severe (Pain Scale 7-10) Last Admin: 09/01/24 01:34 Dose: 1 mg Documented By: ESTEBAN Loratadine (Loratadine 10 Mg Tablet) 10 mg PO DAILY [facility] Last Admin: 09/05/24 08:02 Dose: Not Given Documented By: FAUSTINO Non-Admin Reason: NPO Magnesium Hydroxide (Milk Of Magnesia 30 Ml Oral.Susp) 30 ml PO DAILY PRN PRN Reason: Constipation Melatonin (Melatonin 3 Mg Tablet) 6 mg PO BEDTIME PRN PRN Reason: Insomnia Meropenem (Meropenem 1 Gm Vial) 1 gm IVPUSH Q8H [facility] Last Admin: 09/06/24 05:44 Dose: 1 gm Documented By: ADELINE Metoclopramide HCl (Metoclopramide Hcl 10 Mg/2 Ml Vial) 10 mg IVPUSH Q6H PRN PRN Reason: Nausea and Vomiting Last Admin: 09/02/24 14:08 Dose: 10 mg Documented By: OLI Morphine Sulfate (Morphine Sulfate 4 Mg/Ml Cartridge) 4 mg IVPUSH Q4H PRN; Protocol PRN Reason: Pain, Moderate(Pain Scale 4-6) Last Admin: 09/05/24 17:41 Dose: 4 mg Documented By: FAUSTINO Omeprazole (Omeprazole 20 Mg Capsule.Dr) 20 mg PO DAILY@0630 [facility] Last Admin: 09/06/24 05:43 Dose: 20 mg Documented By: ADELINE Ondansetron HCl (Ondansetron Hcl 4 Mg/2 Ml Vial) 4 mg IVPUSH Q8H PRN PRN Reason: Nausea and Vomiting Last Admin: 09/05/24 13:20 Dose: 4 mg Documented By: FAUSTINO Polyethylene Glycol (Polyethylene Glycol 3350 17 Gm Powd.Pack) 5 gm PO DAILY [facility] Last Admin: 09/05/24 08:02 Dose: Not Given Documented By: FAUSTINO Non-Admin Reason: NPO Sodium Chloride (0.9 % Sodium Chloride Flush 3 Ml Syringe) 3 ml IVFLUSH QSHIFT [facility] Last Admin: 09/06/24 00:55 Dose: 3 ml Documented By: ADELINE Labs 09/03/24 05:37 09/06/24 06:57 Microbiology Microbiology Results: Microbiology 09/01/24 01:55 Blood Culture - Final Blood - Venous No growth after 5 days. 09/01/24 01:55 Blood Culture - Final Blood - Venous No growth after 5 days. 09/05/24 12:00 Gram Stain - Final Abscess Intra-abdominal Assessment and Plan (1) Diverticulitis: Status: Acute Plan 63-year-old female with a medical history significant for IBS, GERD and diverticulitis, presented to the ED today for left lower quadrant pain and suspected diverticulitis. Ddx includes diverticulitis, colitis, gastroenteritis Sepsis secondary to complicated sigmoid diverticulitis A/P CT with sigmoid diverticulitis and phlegmonous changes full liquid diet, advance as tolerated continues to have fevers, abd ct showed abscess formation> s/p IR drainage 09/05/24 surgery following repeat blood cx pending abscess cx pending Hypokalemia Repleted full code VTE prophy: lovenox Requires ongoing inpatient stay for IV antibiotics Quality Stroke Does the patient have a stroke diagnosis?: No VTE Prior VTE?: No VTE Risk Level:: Medical - moderate - high VTE Device Contraindication: Treatment Not Indicated VTE Drug Contraindication: N/A - Med Ordered
[2024-09-06] MEDS: Loratadine 10 MG TABLET PO (08:42)
[2024-09-06 08:44] LABS: Anion Gap 14 (12-20); Blood Urea Nitrogen 8 mg/dL (9-16); Calcium 8.4 mg/dL (8.4-10.2); Carbon Dioxide 26 mmol/L (22-29); Chloride 103 mmol/L (96-108); Creatinine Clr Calc Pharmacy 90.2; Estimated Glomerular Filt Rate > 60; Glucose Random 117 mg/dL (60-115); Sodium 140 mmol/L (135-145)
[2024-09-06] MEDS: Potassium Chloride ER 20 MEQ TAB.ER.PRT 40 MEQ PO ×2 (09:49→20:25)
--- NOTE | 2024-09-06 11:33 | PC.NURSE ---
Patient refusing blood work. BMP previously collected this morning. Madiha Giang [employer] made aware that CBC not collected and patient refusing. No new orders.
[2024-09-06 12:00] VITALS: BP 132/73; PULSE 83; RESP 18; TEMP 36.7; O2SAT 95
[2024-09-06 15:50] VITALS: BP 134/75; PULSE 86; RESP 18; TEMP 36.4; O2SAT 97
[2024-09-06 19:29] VITALS: BP 133/76; PULSE 85; RESP 18; TEMP 37; O2SAT 95
[2024-09-07] MEDS: Acetaminophen 325 MG TABLET 975 MG PO ×2 (03:52→10:58)
[2024-09-07 04:00] VITALS: BP 145/83; PULSE 85; RESP 16; TEMP 37; O2SAT 93
[2024-09-07] MEDS: Omeprazole 20 MG CAPSULE.DR PO (05:42)
[2024-09-07] MEDS: Meropenem 1 GM VIAL IVPUSH (05:42)
[2024-09-07 07:01] VITALS: BP 145/81; PULSE 78; RESP 14; TEMP 36.8; O2SAT 95
--- NOTE | 2024-09-07 07:18 | P.DS_ITS ---
DS: Providers Provider Date of Service: 09/07/24 Date of admission: 09/01/24 01:13 Date of discharge: 09/07/24 Primary care physician: Carmencita Rangel MD Consults: 09/02/24 09:58 Consult to General Surgery [place]ine [place]ing [place] [facility] [place] [facility] Reason for consultation: recurrent diverticulitis Has provider been notified: No DS: Diagnosis Discharge Diagnosis (1) Diverticulitis: Status: Acute DS: Summary Hospital Course Hospital Course: History and physical as per admitting provider. Patient is a 63-year-old female with a medical history significant for IBS, GERD and diverticulitis, presented to the ED today for left lower quadrant pain and suspected diverticulitis. She describes 09/06 severe sharp pain in [place] LLQ. No fever or chills. Many episodes of diverticulitis in the past, most recently seen at [facility] this past year. She takes MiraLax for irritable bowel syndrome and reports her bowel movements have been normal. She was scheduled for a colonoscopy today with Dr. Yip. Her pain started on Thursday and when she started her prep last night her pain worsened with associated nausea and vomiting. She denies any blood in the stool or urinary symptoms including frequency or dysuria. 63-year-old woman treated for sepsis secondary to complicated sigmoid diverticulitis and phlegmon/abscess. She was initially on a full liquid diet and was advanced and tolerating solid foods at this time. She had abscess drained by IR on 09/05/2024. She had been spiking fevers overnight for a few days, initial blood cultures were negative and no other source of infection noted. She has been fever free for over 24 hours. Plan is to discharge home with 3 more days of antibiotics.She will go home with drain from diverticular abscess and will follow up wit IR outpatient Hypokalemia. Repleted Time Attestation Discharge Coordination Time (in mins): 42 Quality: Safe Use of Opioids Does Pt have an Active Cancer Diagnosis on the Problem List?: No Quality: Stroke Does the patient have a stroke diagnosis?: No Physical Exam Vital Signs: Vital Signs: Last Vital Signs Temp 98.3 F 09/07/24 07:01 Pulse 78 09/07/24 07:01 Resp 14 09/07/24 07:01 BP 145/81 H 09/07/24 07:01 Pulse Ox 95 09/07/24 07:01 O2 Del Method Room Air 09/07/24 07:01 O2 Flow Rate 2 09/05/24 11:55 BMI result Body Mass Index 29.7 Appearing in no acute distress head is normocephalic atraumatic eyes pupils are PERRLA sclera is anicteric mouth throat mucous membranes are intact and moist neck is supple no lymphadenopathy, no JVD noted lung sounds are clear to auscultation heart regular rate rhythm, clear S1, S2 positive bowel sounds, abdomen is soft, nontender neuro patient is alert x3, no focal deficits Drain to left abd DS: Data Data Completed and Pending Labs on day of discharge: Laboratory Results - last 24 hr 09/06/24 06:57 Sodium 140 Potassium 3.0 L Chloride 103 Carbon Dioxide 26 Anion Gap 14 BUN 8 L Creatinine 0.68 Estim Creat Clear Calc 90.2 Estimated GFR > 60 Random Glucose 117 H Calcium 8.4 Preliminary micro results at discharge 09/05/24 12:00 Routine Culture - Preliminary Abscess Intra-abdominal Culture in progress. Anaerobic Culture - Preliminary Culture in progress. Discharge Plan Discharge Anticipated Discharge Date/Time: 09/07/24 07:10 Patient Disposition: Home, Self-Care Discharge Diagnosis: Acute diverticulitis with abscess Sepsis Referrals: Rogelio Portillo MD [Physician] - 1 Week Po,Carmencita Banuelos MD [Primary Care Provider] - 1 Week Discharge Medications: New amoxicillin-pot clavulanate 875-125 mg tablet 1 tab PO BID Qty: 6 0RF oxycodone 5 mg tablet 5 mg PO Q8H PRN (Reason: pain) Qty: 12 0RF Rx Instructions: Partial Fill upon patient request. lorazepam 1 mg tablet 1 mg PO TID PRN (Reason: agitation) Qty: 15 0RF Continued fexofenadine 180 mg Tablet 180 mg PO DAILY polyethylene glycol 3350 [Miralax] 17 gram/dose Powder 5 g PO DAILY Rx Instructions: Take 1 teaspoon with 6 ounces of juice daily. dicyclomine 10 mg capsule 10 mg PO BID PRN (Reason: Abdominal Discomfort) esomeprazole magnesium [Nexium] 40 mg capsule,delayed release(DR/EC) 40 mg PO DAILY Discharge Orders: Discharge Order (Routine); Ordered 09/07/24 Ordered By: Madiha Giang Diet: Advance to usual diet Activity on Discharge: As tolerated Stand Alone Forms: Patient Portal Discharge page, Work/School Release Print Language: [place]i Care Plan Goals: Complete course of antibiotics You will be sent home with secondary to diverticular abscess Health Concerns: Acute diverticulitis with abscess Sepsis Plan of Treatment: Follow-up with primary care provider as needed Take all medications as prescribed Assessment: See discharge summary Discharge Date/Time: 09/07/24 12:57
[2024-09-07 07:51] LABS: Potassium 3.6 mmol/L (3.3-5.1)
[2024-09-07] MEDS: Potassium Chloride ER 20 MEQ TAB.ER.PRT 40 MEQ PO (08:24)
[2024-09-07] MEDS: Loratadine 10 MG TABLET PO (08:24)
[2024-09-07] MEDS: 0.9 % Sodium Chloride Flush 3 ML SYRINGE IVFLUSH (08:25)
--- NOTE | 2024-09-07 10:43 | MHC.CM.PN ---
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
== END 2024-09-07 12:57 | disposition home or self-care (01) | DRG 720 ==
LOC: HO.ED 09-01 01:33 → HO.EDOVER 09-01 02:08 → HO.S3 09-01 13:33
PROVIDERS: Physician Assistant; Physician Assistant Surgical; Admitting Provider Physician Assistant; Emergency Provider Internal Medicine; PCP Internal Medicine; Visit Provider Nurse Practitioner Acute Care
DX: A41.9 Sepsis, unspecified organism (principal); K57.20 Diverticulitis of large intestine with perforation and abscess without bleeding; E87.6 Hypokalemia; Z20.822 Contact with and (suspected) exposure to COVID-19; Z79.899 Other long term (current) drug therapy
CPT/HCPCS: 0241U; 36415; 74176; 75989; 76080; 80048; 80053; 81001; 83605; 83690; 83735; 84132; 84702; 85025; 87040; 87070; 87073; 87205; 87493; 99152; 99153; 99285; C1729; C1769; J0131; J1171; J1885; J2185; J2250; J2270; J2405; J2543; J2765; J3010; J7120

== ENCOUNTER 2024-09-01 01:13 | Outpatient (BNV) | payer OTHER, SELFPAY | END 2024-09-07 09:00 | PROVIDERS: Admitting Provider Physician Assistant; Emergency Provider Internal Medicine; PCP Internal Medicine; Visit Provider Physician Assistant Surgical | DX: K57.92 Diverticulitis of intestine, part unspecified, without perforation or abscess without bleeding (principal) | CPT/HCPCS: 76080 ==

== ENCOUNTER 2024-09-01 01:13 | Outpatient (BNV) | payer OTHER, SELFPAY | END 2024-09-05 11:01 | PROVIDERS: Admitting Provider Physician Assistant; Emergency Provider Internal Medicine; PCP Internal Medicine; Visit Provider Physician Assistant Surgical | DX: K57.92 Diverticulitis of intestine, part unspecified, without perforation or abscess without bleeding (principal) | CPT/HCPCS: 75989 ==

== ENCOUNTER → 2024-09-01 01:13 | Outpatient (BNV) | payer OTHER, SELFPAY | PROVIDERS: Admitting Provider Physician Assistant; Emergency Provider Internal Medicine; PCP Internal Medicine; Visit Provider Surgery | DX: K57.92 Diverticulitis of intestine, part unspecified, without perforation or abscess without bleeding (principal) | CPT/HCPCS: 99222 ==

== ENCOUNTER → 2024-09-01 01:13 | Outpatient (BNV) | payer OTHER, SELFPAY | PROVIDERS: Admitting Provider Physician Assistant; Emergency Provider Internal Medicine; PCP Internal Medicine; Visit Provider Physician Assistant | DX: A41.9 Sepsis, unspecified organism (principal); K57.32 Diverticulitis of large intestine without perforation or abscess without bleeding | CPT/HCPCS: 99223; 99232; 99239; 99499 ==

== ENCOUNTER 2024-09-27 08:10 | Outpatient (REF) | payer OTHER, SELFPAY ==
[2024-09-27 10:16] LABS: Appearance Urine Hazy; Color Urine RED; PH 6.5 (5.0-9.0); UMIC TRIGGER UACC YES; Urine Blood Negative (Negative)
[2024-09-27 10:28] LABS: Bacteria Urine None Seen (None Seen); Hyaline Casts Urine 0-2 /LPF (0-2); UACC Culture Trigger YES; WBC Urine 21-50 /HPF (0-5)
== END 2024-09-27 08:11 | disposition home or self-care (01) ==
LOC: HO.LNP 08:10
PROVIDERS: PCP Internal Medicine; Visit Provider Internal Medicine
DX: N30.00 Acute cystitis without hematuria (principal); B96.20 Unspecified Escherichia coli [E. coli] as the cause of diseases classified elsewhere
CPT/HCPCS: 81001; 81003; 87086; 87088; 87186

== ENCOUNTER 2024-09-27 08:10 | Outpatient (AMB) | payer OTHER, SELFPAY ==
[2024-09-27 08:41] VITALS: BP 126/78; PULSE 106; O2SAT 96; BMI 20.7
--- NOTE | 2024-09-27 08:41 | MHC.OFFWIV ---
Intake Vital Signs 09/27/24 08:41 Height 5 ft 5 in Weight 124 lb 6 oz BMI 20.7 BP 126/78 Blood Pressure Location Rt brachial Position Sitting Pulse 106 H Pulse Source Pulse Oximeter Pulse Oximetry (%) 96 Oxygen Delivery Method Room Air Intake Visit Reasons: EP ? UTI Patient Tobacco Use Status: Never used Tobacco Allergies metronidazole [From Flagyl] Allergy (Unknown, Verified 09/27/24 08:45) Elevated liver enzymes Penicillins [PENICILLINS] Allergy (Unknown, Verified 09/27/24 08:45) Hives prochlorperazine [From Compazine] Allergy (Unknown, Verified 09/27/24 08:45) Unknown levofloxacin [From Levaquin] Adverse Reaction (Unknown, Verified 09/27/24 08:45) Unknown sulfacetamide Adverse Reaction (Unknown, Verified 09/27/24 08:45) Unknown Medication List - Last Reconciled 09/27/24 by Eloina Doan MD dicyclomine 10 mg PO BID PRN esomeprazole magnesium (Nexium) 40 mg PO DAILY fexofenadine 180 mg PO DAILY lorazepam 1 mg PO TID PRN oxycodone 5 mg PO Q8H PRN polyethylene glycol 3350 (Miralax) 5 grams PO DAILY Do you need a note to return to daycare/school/sports/work: No PFSH Medical History History of duodenal ulcer Diverticulosis Chronic diarrhea Cervical cancer (~08/2018) CTS (carpal tunnel syndrome) Peptic ulcer disease (~2004) Allergic rhinitis GERD (gastroesophageal reflux disease) Surgical History Hx of endoscopy History of colonoscopy S/P bilateral breast reduction (~07/2019) S/P appendectomy H/O: hysterectomy Family History Father Family history of Alzheimer's disease Mother History of high blood pressure History of depression Social History Household Members: Other Household Members Other:: brother Housing: House Do you presently have visiting nurse or other home services: No Alcohol intake: current Alcohol intake frequency: does not drink Patient Tobacco Use Status: Never used Tobacco Second Hand Smoke Exposure: Yes service: No Current occupational status: employed Current occupation: Nurse Cognitive needs: No Hearing needs: No Vision needs: No Female Reproductive History Menstrual Age of Menarche: 10 Physical Exam Vital Signs: Last Vital Signs Pulse 106 H 09/27/24 08:41 BP 126/78 09/27/24 08:41 Pulse Ox 96 09/27/24 08:41 Oxygen Delivery Method Room Air 09/27/24 08:41 BMI result Body Mass Index 20.7 Assessment & Plan Assessment & Plan (1) Acute cystitis without hematuria: Code(s): N30.00 - Acute cystitis without hematuria Orders: Orders UA CC w/rflx Micro + Cult Today N30.00 - Acute cystitis without hematuria Medications: New phenazopyridine (Pyridium) 200 mg PO TID PRN 6 tabs 0RF pain 2 days sulfamethoxazole-trimethoprim 800-160 mg (Bactrim DS) 1 tab PO BID 10 tabs 0RF 5 days Coding Diagnoses Acute cystitis without hematuria N30.00
--- NOTE | 2024-09-27 09:31 | AM.OFFWIN_ITS ---
Intake Vital Signs 09/27/24 08:41 Height 5 ft 5 in Weight 124 lb 6 oz BMI 20.7 BP 126/78 Blood Pressure Location Rt brachial Position Sitting Pulse 106 H Pulse Source Pulse Oximeter Pulse Oximetry (%) 96 Oxygen Delivery Method Room Air Intake Visit Reasons: EP ? UTI Patient Tobacco Use Status: Never used Tobacco Allergies metronidazole [From Flagyl] Allergy (Unknown, Verified 09/27/24 08:45) Elevated liver enzymes Penicillins [PENICILLINS] Allergy (Unknown, Verified 09/27/24 08:45) Hives prochlorperazine [From Compazine] Allergy (Unknown, Verified 09/27/24 08:45) Unknown levofloxacin [From Levaquin] Adverse Reaction (Unknown, Verified 09/27/24 08:45) Unknown sulfacetamide Adverse Reaction (Unknown, Verified 09/27/24 08:45) Unknown Medication List - Last Reconciled 09/27/24 by Eloina Doan MD dicyclomine 10 mg PO BID PRN esomeprazole magnesium (Nexium) 40 mg PO DAILY fexofenadine 180 mg PO DAILY lorazepam 1 mg PO TID PRN oxycodone 5 mg PO Q8H PRN polyethylene glycol 3350 (Miralax) 5 grams PO DAILY HPI EP ? UTI HPI Details Chief Complaint The patient presents with symptoms suggestive of a urinary tract infection, including burning sensation and increased frequency of urination. History of Present Illness - The patient is a 63-year-old female pr esenting with symptoms suggestive of a urinary tract infection. - Initial presentation included a burnin g sensation during urination and increased frequency without substantial urinary output. - Azo was taken for symptomatic relief; however, symptoms are reemerging. - Patient's urine has the characteristic discoloration due to Pyridium use. - Bactrim DS has historically been effec tive for her urinary tract infections despite a documented sulfonamide eye drop allergy, which she reported as non- relevant for Bactrim efficacy. - Absence of back pain, gastrointestinal disturbances, or abdominal discomfort. - Prompt treatment sought to mitigate pr ogression that could necessitate emergency care during a holiday period. Review of Systems - Genitourinary: Reports burning sensati on during urination and increased urinary frequency. - Gastrointestinal: Denies nausea, vomit ing, abdominal pain. 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 Although an allergy to sulfa eye drops is noted, it does not contraindicate oral Bactrim administration in this scenario. A urine culture will be conducted to identify the causative organism, and follow-up urinalysis post-antibiotic treatment will be scheduled to confirm the resolution of the infection. Pyridium will be prescribed to alleviate symptomatic burning and discomfort. This plan seeks to prevent further exacerbation, especially with the holiday period approaching. [facility] Medical History History of duodenal ulcer Diverticulosis Chronic diarrhea Cervical cancer (~08/2018) CTS (carpal tunnel syndrome) Peptic ulcer disease (~2004) Allergic rhinitis GERD (gastroesophageal reflux disease) Surgical History Hx of endoscopy History of colonoscopy S/P bilateral breast reduction (~07/2019) S/P appendectomy H/O: hysterectomy Family History Father Family history of Alzheimer's disease Mother History of high blood pressure History of depression Social History Household Members: Other Household Members Other:: brother Housing: House Do you presently have visiting nurse or other home services: No Alcohol intake: current Alcohol intake frequency: does not drink Patient Tobacco Use Status: Never used Tobacco Second Hand Smoke Exposure: Yes service: No Current occupational status: employed Current occupation: Nurse Cognitive needs: No Hearing needs: No Vision needs: No Female Reproductive History Menstrual Age of Menarche: 10 Review of Systems Const All systems reviewed & are unremarkable except as noted in HPI and below Physical Exam Vital Signs: Last Vital Signs Pulse 106 H 09/27/24 08:41 BP 126/78 09/27/24 08:41 Pulse Ox 96 09/27/24 08:41 Oxygen Delivery Method Room Air 09/27/24 08:41 BMI result Body Mass Index 20.7 Const General: no acute distress Orientation/consciousness: patient oriented x3 Eyes General: appearance normal, both eyes and all related structures Resp Effort & Inspection: normal respiratory effort and able to speak in complete sentences General: Yes no CVA tenderness Back/Spine/Pelvis Back: no CVA tenderness Neuro General: patient oriented x3 Psych Mental Status: mental status grossly normal Results AMB Urinalysis, Automated UA Leukoctes 500 Rukhsana/uL Last Edit by Hali Edwards CCM on 09/27/24 09: 41 UA Nitrite Positive Last Edit by Hali Edwards [facility] on 09/27/24 09:41 UA Urobilinogen 8 mg/dL Last Edit by Hali Edwards [facility] on 09/27/24 09: 41 UA Protein 30 mg/dL Last Edit by Hali Edwards [facility] on 09/27/24 09:41 UA pH 5.0 Last Edit by Hali Edwards [facility] on 09/27/24 09:41 UA Blood 0 Shin/uL Last Edit by Hali Edwards [facility] on 09/27/24 09:41 UA Specific [place] 1.025 Last Edit by Hali Edwards [facility] on 09/27/24 09:41 UA Ketone Positive Last Edit by Hali Edwards [facility] on 09/27/24 09:41 UA Bilirubin 4 mg/dL Last Edit by Hali Edawrds [facility] on 09/27/24 09:41 UA Glucose 500 mg/dL Last Edit by Hali Edwards [facility] on 09/27/24 09:41 Results Reviewed Results Reviewed: Laboratory Last Values Urine pH (Auto) 5.0 09/27/24 09:31 Specific [place] (Auto) 1.025 09/27/24 09:31 Urine Protein (Auto) 30 mg/dL 09/27/24 09:31 Glucose (UA)(Auto) 500 mg/dL 09/27/24 09:31 Urine Ketones (Auto) Positive 09/27/24 09:31 Urine Blood (Auto) 0 Shin/uL 09/27/24 09:31 Urine Nitrite (Auto) Positive 09/27/24 09:31 Urine Bilirubin (Auto) 4 mg/dL 09/27/24 09:31 Urine Urobilinogen (Auto) 8 mg/dL 09/27/24 09:31 Leukocyte Esterase (Auto) 500 Rukhsana/uL 09/27/24 09:31 Assessment & Plan Assessment & Plan (1) Acute cystitis without hematuria: Code(s): N30.00 - Acute cystitis without hematuria Plan Chief Complaint The patient presents with symptoms suggestive of a urinary tract infection, including burning sensation and increased frequency of urination. History of Present Illness - The patient is a 63-year-old female presenting with symptoms suggestive of a urinary tract infection. - Initial presentation included a burning sensation during urination and increased frequency without substantial urinary output. - Azo was taken for symptomatic relief; however, symptoms are reemerging. - Patient's urine has the characteristic discoloration due to Pyridium use. - Bactrim DS has historically been effective for her urinary tract infections despite a documented sulfonamide eye drop allergy, which she reported as non- relevant for Bactrim efficacy. - Absence of back pain, gastrointestinal disturbances, or abdominal discomfort. - Prompt treatment sought to mitigate progression that could necessitate emergency care during a holiday period. Review of Systems - Genitourinary: Reports burning sensation during urination and increased urinary frequency. - Gastrointestinal: Denies nausea, vomiting, abdominal pain. 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 Although an allergy to sulfa eye drops is noted, it does not contraindicate oral Bactrim administration in this scenario. A urine culture will be conducted to identify the causative organism, and follow-up urinalysis post-antibiotic treatment will be scheduled to confirm the resolution of the infection. Pyridium will be prescribed to alleviate symptomatic burning and discomfort. This plan seeks to prevent further exacerbation, especially with the holiday period approaching. Orders: Orders UA CC w/rflx Micro + Cult Today N30.00 - Acute cystitis without hematuria AMB Urinalysis Automated Today Z13.9 - Encounter for screening, unspecified Medications: New phenazopyridine (Pyridium) 200 mg PO TID 2 days PRN 6 tabs 0RF pain sulfamethoxazole-trimethoprim 800-160 mg (Bactrim DS) 1 tab PO BID 5 days 10 tabs 0RF Coding Level of Care Code Est Pt Level 3 (03374) Diagnoses Acute cystitis without hematuria N30.00
== END 2024-09-27 09:17 | disposition home or self-care (01) ==
PROVIDERS: PCP Internal Medicine; Visit Provider Internal Medicine
DX: N30.00 Acute cystitis without hematuria (principal); Z13.9 Encounter for screening, unspecified

== ENCOUNTER 2024-10-03 12:55 | Outpatient (REF) | payer OTHER, SELFPAY ==
--- NOTE | ~2024-10-03 | FL_ITS ---
EXAMINATION: FL DRAIN INJECTION/EVALUATION. CLINICAL INFORMATION: Diverticular abscess status percutaneous drainage on 09/05/2024. COMPARISON: Fluoroscopic drain injection 09/07/2024 TECHNIQUE: A 20 cc mixture of 25% saline/75% of Omnipaque 300 was injected through the left lower quadrant drainage catheter and multiple spot images and cine loops were recorded. FINDINGS: A drainage catheter is still present in the left pelvis. Contrast was injected through the catheter, which demonstrated a persistent communication with the sigmoid colon. The catheter was then flushed with normal saline and reconnected to the NEGRO bulb. FLUOROSCOPY TIME: 4 minutes 29 seconds Number of Spot Images: 1 Number of Cine: 1 DOSE AREA PRODUCT: 3363 uGy-m2 (microgray-meter squared) FL/FL fistula/abscess/sinus tract IMPRESSION: 1. Fistula tract between the sigmoid colon and the diverticular abscess cavity is still present. The drainage catheter was, therefore, not removed. This procedure was performed by Tremaine Gordon PA-C, and supervised by Dr. Barraza. Electronically signed by: John Barraza MD 10/04/2024 01:15 PM [facility]
== END 2024-10-03 12:56 | disposition home or self-care (01) ==
LOC: HO.XRAY 12:55
PROVIDERS: PCP Internal Medicine; Visit Provider Orthopaedic Surgery
DX: K57.80 Diverticulitis of intestine, part unspecified, with perforation and abscess without bleeding (principal)
CPT/HCPCS: 76080

== ENCOUNTER → 2024-10-03 12:56 | Outpatient (BNV) | payer OTHER, SELFPAY | PROVIDERS: PCP Internal Medicine; Visit Provider Physician Assistant Surgical | DX: K57.80 Diverticulitis of intestine, part unspecified, with perforation and abscess without bleeding (principal) | CPT/HCPCS: 76080 ==

== ENCOUNTER 2024-10-07 11:17 | Outpatient (AMB) | payer OTHER, SELFPAY ==
--- NOTE | 2024-10-07 11:27 | MHC.OFFVIS ---
Vital Signs 10/07/24 11:40 Height 5 ft 5 in Weight 173 lb 4 oz BMI 28.8 BP 152/74 H Blood Pressure Location Lt brachial Position Sitting Pulse 94 Intake Visit Reasons: biliary drainage tube opening Intake Note: Patient is seen in office for ER follow up visit, following diverticulitis. Pt c/o: was seen in-pt for diverticulits, no symptoms since ER visit, here to have drain removed, per pt is infected and has pus inside ED:09/02/24 [place] Supervisor Required: No Accompanied by: Self / Same As Patient Allergies metronidazole [From Flagyl] Allergy (Unknown, Verified 10/07/24 11:39) Elevated liver enzymes Penicillins [PENICILLINS] Allergy (Unknown, Verified 10/07/24 11:39) Hives prochlorperazine [From Compazine] Allergy (Unknown, Verified 10/07/24 11:39) Unknown levofloxacin [From Levaquin] Adverse Reaction (Unknown, Verified 10/07/24 11:39) Unknown sulfacetamide Adverse Reaction (Unknown, Verified 10/07/24 11:39) Unknown HPI Comments Details: 63-year-old female patient with a past medical history of IBS, GERD, cervical cancer and diverticulitis presenting to the emergency department with complaints of abdominal pain previously evaluated on 09/02/2024 while in-house. At the time she had left lower quadrant abdominal pain which was severe, nonradiating. She was prepping for a elective colonoscopy when the pain began and subsequently never underwent the colonoscopy. The pain was similar to previous episodes of diverticulitis. While in the hospital, she was found to have an abscess which was increasing in size therefore underwent IR drainage. She continues to have the drain in at this time and after 5 weeks is reporting no discharge from the tube. Her latest tube study does reveal a communication from the tube into the colon. She reports feeling well with no abdominal pain, fever, chills and reports normal bowel movements. She has been eating well with a normal appetite. She understands that she needs to have a sigmoid colectomy given the multiple episodes of diverticulitis in the most recent complicated episode. She is concerned about the timing given the upcoming change of her job. [facility] Medical History History of duodenal ulcer Diverticulosis Chronic diarrhea Cervical cancer (~08/2018) CTS (carpal tunnel syndrome) Peptic ulcer disease (~2004) Allergic rhinitis GERD (gastroesophageal reflux disease) Surgical History Hx of endoscopy History of colonoscopy S/P bilateral breast reduction (~07/2019) S/P appendectomy H/O: hysterectomy Family History Father Family history of Alzheimer's disease Mother History of high blood pressure History of depression Social History Household Members: Other Household Members Other:: brother Housing: House Do you presently have visiting nurse or other home services: No Alcohol intake: current Alcohol intake frequency: does not drink Patient Tobacco Use Status: Never used Tobacco Second Hand Smoke Exposure: Yes service: No Current occupational status: employed Current occupation: Nurse Cognitive needs: No Hearing needs: No Vision needs: No Female Reproductive History Menstrual Age of Menarche: 10 Review of Systems Const All systems reviewed & are unremarkable except as noted in HPI and below Physical Exam Vital Signs: Last Vital Signs Pulse 94 10/07/24 11:40 BP 152/74 H 10/07/24 11:40 BMI result Body Mass Index 28.8 Last Vital Signs Temp 98 F 09/02/24 07:14 Pulse 80 09/02/24 07:14 Resp 12 09/02/24 07:14 BP 113/63 09/02/24 07:14 Pulse Ox 96 09/02/24 07:14 O2 Del Method Nasal Cannula 09/02/24 07:14 O2 Flow Rate 3 09/02/24 07:14 BMI result Body Mass Index 29.7 Const General: comfortable, no acute distress and alert Orientation/consciousness: patient oriented x3 Resp Effort & Inspection: normal respiratory effort GI Other: IR drain in the left lower quadrant. Inspection: No distended and Yes scar (pfannensteil ) Palpation (GI): Soft to palpation, nontender and no guarding Percussion: Yes normal to percussion Skin General skin exam: no rashes or lesions noted Neuro General: patient oriented x3 and moves all extremities Assessment & Plan Assessment & Plan (1) Diverticulitis of intestine with abscess: Code(s): K57.80 - Diverticulitis of intestine, part unspecified, with perforation and abscess without bleeding Category: Medical Qualifiers: Diverticulitis site: large intestine Diverticulitis bleeding: without bleeding Qualified Code(s): K57.20 - Diverticulitis of large intestine with perforation and abscess without bleeding Plan 63-year-old female patient with a previous history of diverticulitis now with a more recent episode of complicated diverticulitis with abscess. The current IR drain is no longer draining any significant fluid. Recent IR check of the tube is noted. I recommended removing the tube at this time. I explain the next steps including possible hand assisted laparoscopic or possible open sigmoid colectomy including the relative risks and benefits. She is awaiting a change in her job since her company has been taken over by another organization. She will call us when she is ready to schedule the surgery. She is welcome to call for any new concerns or questions. Coding Level of Care Code Est Pt Level 3 (06975) Diagnoses Diverticulitis of large intestine with abscess without bleeding K57.20 Diverticulitis site: large intestine Diverticulitis bleeding: without bleeding
[2024-10-07 11:40] VITALS: BP 152/74; PULSE 94; BMI 28.8
== END 2024-10-07 12:08 | disposition home or self-care (01) ==
PROVIDERS: PCP Internal Medicine; Visit Provider Surgery
DX: K57.20 Diverticulitis of large intestine with perforation and abscess without bleeding (principal)
CPT/HCPCS: 99213

== ENCOUNTER → 2024-10-07 11:17 | Outpatient (BNVA) | payer OTHER, SELFPAY | PROVIDERS: PCP Internal Medicine; Visit Provider Surgery ==

== ENCOUNTER → 2024-11-23 13:59 | Outpatient (BNV) | payer OTHER, SELFPAY | PROVIDERS: Admitting Provider Surgery; PCP Internal Medicine; Visit Provider Internal Medicine Cardiovascular Disease | DX: Z01.810 Encounter for preprocedural cardiovascular examination (principal) | CPT/HCPCS: 93010 ==

== ENCOUNTER 2024-12-07 08:09 | Outpatient (BNV) | payer OTHER, SELFPAY | END 2024-12-09 09:28 | PROVIDERS: Admitting Provider Surgery; PCP Internal Medicine; Visit Provider Internal Medicine | DX: R00.0 Tachycardia, unspecified (principal) | CPT/HCPCS: 93010 ==

== ENCOUNTER 2024-12-07 08:09 | Inpatient (IN) | payer OTHER, SELFPAY ==
--- NOTE | 2024-11-23 | ECG_ITS ---
Test Reason : PREOP Blood Pressure : */* mmHG Vent. Rate : 70 BPM Atrial Rate : 70 BPM P-R Int : 140 ms QRS Dur : 84 ms QT Int : 396 ms P-R-T Axes : 0 -11 -1 degrees QTcB Int : 427 ms Normal sinus rhythm Normal ECG When compared with ECG of 22-Oct-2020 13:48, No significant change was found Referred By: Heidi Staley Electronically Signed By: Timothy Young
[2024-11-23 13:08] VITALS: BP 138/91; PULSE 88; RESP 16; BMI 28.3
--- NOTE | 2024-11-23 13:47 | HO.ANESPROP2 ---
Documented by User: Heidi Staley NP 12/13/24 14:29 HPI - Anesthesia Eval Consult details Narrative: 64yo F for Hand Assist Colectomy Sigmoid Resection, 12/07/24 No recent illness No CP/SOB with walking dog, housework GERD: ppi controls Slow to wake after hand surgery with TIVA N/V after hyst with morphine GRADES 1 THROUGH 5 TEACHER PMFSH Active Problems Active Problems: All Active Problems Diverticulitis of intestine with abscess (Acute) Acute cystitis without hematuria (Acute) Annual physical exam (Acute) Obesity (BMI 30.0-34.9) (Acute) Hepatic steatosis (Acute) Constipation (Acute) Lower abdominal pain (Acute) Anxiety (Acute) Urinary tract infection (Acute) Frequency of micturition (Acute) Upper respiratory tract infection (Acute) Diverticulosis (Acute) Dysuria (Acute) Urinary tract infection (Acute) Dupuytren's contracture of right hand (Acute) Dupuytren's contracture of left hand (Acute) Upper abdominal pain (Acute) Diverticulosis (Acute) Chronic diarrhea (Acute) Allergic rhinitis (Acute) GERD (gastroesophageal reflux disease) (Acute) Past Medical History Medical History (Updated 12/11/24 @ 09:52 by Nura Tyson MD) IBS (irritable bowel syndrome) Slow to wake up after anesthesia History of duodenal ulcer Diverticulosis Chronic diarrhea Cervical cancer (~08/2018) CTS (carpal tunnel syndrome) Peptic ulcer disease (~2004) Allergic rhinitis GERD (gastroesophageal reflux disease) Family History Family History Father Family history of Alzheimer's disease Mother History of high blood pressure History of depression Family history of problems with anesthesia: No Surgical History Surgical History (Updated 12/12/24 @ 19:20 by Carmencita Rangel MD) Hx of hand surgery (2023) Hx of endoscopy History of colonoscopy S/P bilateral breast reduction (~07/2019) S/P appendectomy H/O: hysterectomy History of Problems with Anesthesia: Yes (see HPI) Social History Social History (Updated 11/23/24 @ 13:34 by Kayla Delarosa RN) Household Members: Family Household Members Other:: brother Housing: House Are you a primary rn coronary care unit to a significant other at home: Yes (brother age 65) Do you presently have visiting nurse or other home services: No 75 years or older and lives alone: No Alcohol intake: current Alcohol intake frequency: does not drink Patient Tobacco Use Status: Never used Tobacco e-Cigarette/Vaping Use: Never Used Second Hand Smoke Exposure: Yes service: No Current occupational status: 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 Hearing needs: No Vision needs: No Meds Allergies Allergy/AdvReac Type Severity Reaction Status Date / Time gluten Allergy Severe Gastrointestinal Verified 12/07/24 08:09 Upset metronidazole [From Flagyl] Allergy Severe Elevated Verified 12/07/24 08:09 liver enzymes Penicillins [PENICILLINS] Allergy Unknown Hives, in Verified 12/07/24 08:09 childhood prochlorperazine Allergy Unknown IV tardive Verified 12/07/24 08:09 [From Compazine] dyskinsia levofloxacin [From Levaquin] AdvReac Severe elevated Verified 12/07/24 08:09 LFTs sulfacetamide AdvReac Unknown swelling Verified 12/07/24 08:09 in eyes, eyes drops only Home Medications ?Medication ?Instructions ?Recorded ?Confirmed ?Last Taken ?Type dicyclomine 10 mg capsule 10 mg PO BID PRN Abdominal 09/01/24 12/07/24 08/30/24 History Discomfort fexofenadine 180 mg tablet 180 mg PO DAILY 09/01/24 12/07/24 08/31/24 History Lactobacillus rhamnosus GG 10 1 cap PO DAILY 11/23/24 11/23/24 Unknown History billion cell capsule (Culturelle) omeprazole 40 mg capsule,delayed 40 mg PO DAILY 11/23/24 12/07/24 12/07/24 History release Exam Height,Weight and Vital Signs: Height 5 ft 5 in Weight 77.111 kg Last Vital Signs Pulse 88 11/23/24 13:08 Resp 16 11/23/24 13:08 BP 138/91 H 11/23/24 13:08 O2 Del Method Room Air 11/23/24 13:08 Airway Mallampati Class: II TM Dist: >3cm Neck ROM: Full Loose/Missing/Broken Teeth: Yes (Cerulean x 2 upper sides) Heart: RRR Lungs: CTAB Assessment and Plan Assessment Anesthesia Assessment: Anesthesia Plan Discussed and PAT Visit Final Anesthetic Review Family History of Problems with Anesthesia: No History of Problems with Anesthesia: Yes (see HPI) Documented by User: Huy Ashley MD 12/14/24 09:06 PMFSH Past Medical History Medical History (Updated 12/11/24 @ 09:52 by Nura Tyson MD) IBS (irritable bowel syndrome) Slow to wake up after anesthesia History of duodenal ulcer Diverticulosis Chronic diarrhea Cervical cancer (~08/2018) CTS (carpal tunnel syndrome) Peptic ulcer disease (~2004) Allergic rhinitis GERD (gastroesophageal reflux disease) Family History Family History Father Family history of Alzheimer's disease Mother History of high blood pressure History of depression Surgical History Surgical History (Updated 12/12/24 @ 19:20 by Carmencita Rangel MD) Hx of hand surgery (2023) Hx of endoscopy History of colonoscopy S/P bilateral breast reduction (~07/2019) S/P appendectomy H/O: hysterectomy Social History Social History (Updated 11/23/24 @ 13:34 by Kayla Delarosa RN) Household Members: Family Household Members Other:: brother Housing: House Are you a primary rn coronary care unit to a significant other at home: Yes (brother age 65) Do you presently have visiting nurse or other home services: No 75 years or older and lives alone: No Alcohol intake: current Alcohol intake frequency: does not drink Patient Tobacco Use Status: Never used Tobacco e-Cigarette/Vaping Use: Never Used Second Hand Smoke Exposure: Yes service: No Current occupational status: 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 Hearing needs: No Vision needs: No Meds Allergies Allergy/AdvReac Type Severity Reaction Status Date / Time gluten Allergy Severe Gastrointestinal Verified 12/07/24 08:09 Upset metronidazole [From Flagyl] Allergy Severe Elevated Verified 12/07/24 08:09 liver enzymes Penicillins [PENICILLINS] Allergy Unknown Hives, in Verified 12/07/24 08:09 childhood prochlorperazine Allergy Unknown IV tardive Verified 12/07/24 08:09 [From Compazine] dyskinsia levofloxacin [From Levaquin] AdvReac Severe elevated Verified 12/07/24 08:09 LFTs sulfacetamide AdvReac Unknown swelling Verified 12/07/24 08:09 in eyes, eyes drops only Home Medications ?Medication ?Instructions ?Recorded ?Confirmed ?Last Taken ?Type dicyclomine 10 mg capsule 10 mg PO BID PRN Abdominal 09/01/24 12/07/24 08/30/24 History Discomfort fexofenadine 180 mg tablet 180 mg PO DAILY 09/01/24 12/07/24 08/31/24 History Lactobacillus rhamnosus GG 10 1 cap PO DAILY 11/23/24 11/23/24 Unknown History billion cell capsule (Culturelle) omeprazole 40 mg capsule,delayed 40 mg PO DAILY 11/23/24 12/07/24 12/07/24 History release Assessment and Plan Assessment Anesthesia Assessment: Chart Reviewed Final Anesthetic Review NPO: Yes ASA Class: II Final Preanesthetic Review: No Changes in Pt Med Stat, Meds/Allgs Chart Reviewed, Consent Obtained/Reviewed and Anes Risks/Benef Reviewed Patient Risk: Intermediate Procedure Risk: Intermediate Anesthetic Plan Anesthetic Plan: Agree w/ Assess. and Plan Disposition: Standard PACU
[2024-11-23 14:32] LABS: Hematocrit 43.3 % (37.0-47.0); Hemoglobin 14.6 g/dl (12.0-16.0); Mean Corpuscular HGB Conc 33.7 g/dl (31.0-35.0); Mean Corpuscular Hemoglobin 28.5 pg (27.0-33.0); Mean Corpuscular Volume 84.4 fL (80.0-98.0); Mean Platelet Volume 8.8 fL (9.4-12.3); Platelet Count 221 X10*3/uL (160-400); Red Blood Count 5.13 X10*6/uL (4.20-5.50); Red Cell Distribution Width 14.6 % (11.0-16.0); White Blood Count 5.1 X10*3/uL (4.8-10.8)
[2024-11-23 14:42] LABS: Anion Gap 12 (12-20); Blood Urea Nitrogen 7 mg/dL (9-16); Calcium 9.7 mg/dL (8.4-10.2); Carbon Dioxide 24 mmol/L (22-29); Chloride 109 mmol/L (96-108); Creatinine Clr Calc Pharmacy 84.4; Estimated Glomerular Filt Rate > 60; Glucose Random 97 mg/dL (60-115); Potassium 3.8 mmol/L (3.3-5.1); Sodium 141 mmol/L (135-145)
[2024-12-07] VITALS (10 sets, daily range): BP systolic 130–167; BP diastolic 67–96; PULSE 73–100; RESP 16–20; TEMP 36.6–37.2; O2SAT 93–100
--- NOTE | ~2024-12-07 | US_ITS ---
EXAMINATION: US RETROPERITONEAL LIMITED (RENAL ONLY) CLINICAL INFORMATION: Elevated BUN/creatinine post sigmoid colectomy. COMPARISON: Abdomen ultrasound 02/04/2024. Correlation made with CT abdomen and pelvis 09/04/2024. TECHNIQUE: Real-time imaging of the kidneys. FINDINGS: RIGHT KIDNEY: 9.8 x 4.5 x 4.7 cm (SAG x AP x TRV). The kidney is normal in size, contour, and echogenicity. Renal cortical thickness is normal. No calculi or focal parenchymal lesions. No hydronephrosis. LEFT KIDNEY: 9.6 x 6.3 x 4.1 cm (SAG x AP x TRV). The kidney is normal in size, contour, and echogenicity. Renal cortical thickness is normal. No calculi or focal parenchymal lesions. No hydronephrosis. There is mild to moderate ascites within the abdomen. US/US renal BI IMPRESSION: Normal renal ultrasound. Incidental note made of ascites. Electronically signed by: Elías Simpson MD 12/09/2024 11:02 AM EDT
--- NOTE | ~2024-12-07 | XR_ITS ---
EXAMINATION: XR CHEST 1 VIEW HISTORY: shortness of breath COMPARISON: Comparison is made with the prior examination dated 10/22/2020. FINDINGS: A single AP portable view of the chest performed at 9:41 AM is submitted. There are low lung volumes. Patchy opacity at the left lung base may represent atelectasis or pneumonia. There is subsegmental atelectasis at the right lung base. There is no pleural effusion, pneumothorax, or pulmonary vascular congestion. The heart is normal in size. The bones are intact. XR/XR chest 1V IMPRESSION: Limited examination due to low lung volumes. Left lower lobe atelectasis versus pneumonia. PA and lateral views with greater inspiratory effort would be helpful. Electronically signed by: Lex Burrell MD 12/09/2024 09:56 AM EDT
--- NOTE | ~2024-12-07 | US_ITS ---
EXAMINATION: US TRIPLEX LOWER EXTREMITY, BILATERAL CLINICAL INFORMATION: Hypoxia with tachycardia. COMPARISON: None available. TECHNIQUE: Color-flow triplex imaging with spectral analysis and compression Doppler were performed on the bilateral lower extremities. FINDINGS: Respiratory variation, normal compression and augmented flow are noted throughout the bilateral lower extremities. The visualized common femoral vein, superficial femoral vein, profunda femoral vein, popliteal vein and midcalf peroneal and posterior tibial venous segments show no evidence of deep venous thrombosis bilaterally. There is no Killian's cyst. US/US venous duplex LE BI IMPRESSION: No evidence of deep venous thrombosis involving the bilateral lower extremities. Electronically signed by: Elías Simpson MD 12/09/2024 10:52 AM EDT
--- NOTE | ~2024-12-07 | NM_ITS ---
EXAMINATION: Nuclear medicine pulmonary perfusion. CLINICAL INDICATION: Evaluate for PE. TAMERA. COMPARISON: CT chest without IV contrast 12/09/2024. Chest x-ray 12/09/2024. TECHNIQUE: Following intravenous administration of 3.45 mCi of technetium 99m MAA IV injection, imaging of both lungs were obtained in multiple projections. FINDINGS: On perfusion imaging there is normal flow seen to all segments of the lungs with no defects seen. A nonsegmental defect in the lingula corresponding to the heart is noted. Ventilation study was not performed. NM/NM pul perfusion IMPRESSION: Normal perfusion exam with no suspicion for PE. Ventilation study was not performed. Electronically signed by: John Barraza MD 12/09/2024 03:46 PM EDT
--- NOTE | ~2024-12-07 | CT_ITS ---
EXAMINATION: CT CHEST WITHOUT IV CONTRAST, CT ABDOMEN PELVIS WITHOUT IV CONTRAST INDICATION: Abdominal distention, question of pneumonia COMPARISON: Comparison is made with the prior abdominal CT scan dated 09/05/2024. TECHNIQUE: CT scan of the chest, abdomen and pelvis was performed without contrast using standard departmental protocol. Coronal and sagittal reformatted images were generated and reviewed. Oral contrast material was not administered at the request of the referring physician. This CT exam was performed with one or more of the following dose reduction techniques: automated exposure control, adjustment of the mA and/or kV according to patient size, use of iterative reconstruction technique. DLP: 812 mGy-cm CHEST: THYROID: The thyroid is unremarkable. LUNGS: There is airspace opacity in both lower lobes compatible with atelectasis or pneumonia. MEDIASTINUM: There is no mediastinal lymphadenopathy. ANAT: Evaluation of the hilar regions is limited by lack of intravenous contrast material. CARDIOVASCULATURE: The heart is normal in size. There is no pericardial effusion. The thoracic aorta is normal in caliber. DEGREE OF CORONARY CALCIFICATION: mild PLEURA: There are small bilateral pleural effusions. No pneumothorax. MAIN AIRWAYS: The mainstem bronchi and proximal branches are patent. AXILLA: There is no axillary lymphadenopathy. SOFT TISSUES: Unremarkable. BONES: There is degenerative disc disease of the spine. ABDOMEN: LIVER: The liver is normal in size and contour. The liver has an unremarkable unenhanced appearance. GALLBLADDER / BILE DUCTS: The gallbladder is unremarkable. There is no intra or extrahepatic biliary ductal dilatation. SPLEEN: The spleen is normal in size and has an unremarkable unenhanced appearance. PANCREAS: The pancreas has an unremarkable unenhanced appearance. ADRENAL GLANDS: Unremarkable. KIDNEYS/RETROPERITONEUM: No renal calculi are identified. There is no hydronephrosis. LYMPH NODES: No retroperitoneal lymphadenopathy is identified in the abdomen or pelvis. VASCULATURE: The abdominal aorta is normal in caliber. MESENTERY/PERITONEUM: There is a moderate amount of free fluid in the abdomen and pelvis. No masses. There is no free intraperitoneal gas. STOMACH: The stomach is unremarkable. SMALL BOWEL: The small bowel is normal in caliber. COLON: The colon is collapsed. There are surgical anastomoses in the rectosigmoid colon. APPENDIX: The appendix is not seen, however no inflammatory changes are seen adjacent to the cecum. URINARY BLADDER/PELVIC ORGANS: The urinary bladder is collapsed, limiting detailed evaluation. The uterus is surgically absent. BONES / SOFT TISSUES: There is diffuse body wall edema. There is degenerative disc disease of the spine. CT/CT abdomen pelvis wo IV con IMPRESSION: 1. Small bilateral pleural effusions with adjacent airspace opacity, consistent with atelectasis or pneumonia. 2. Moderate amount of free fluid in the abdomen and pelvis. Diffuse body wall edema. 3. Postsurgical changes involving the rectosigmoid colon. Electronically signed by: Lex Burrell MD 12/09/2024 03:02 PM EDT
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
[2024-12-07] MEDS: Lactated Ringers 1,000 ML 100 ML IVCONT (08:41)
--- NOTE | 2024-12-07 08:49 | MHC.SHP ---
Pre-Procedural Eval Section A - 24 Hr Update-Section A only Date of Service: 12/07/24 The patient is an INPATIENT: No Changes since office visit: Yes Patient answered all questions; No Cold of Flu in the past 2 weeks, No New Medical Problems and No Changes in Medication The patient has been examined within 24 hours of the surgical procedure. The History & Physical has been completed within 30 days and I have reviewed it.: Yes Section B - Complete if H&P > 30 days Chief Complaint: Sigmoid diverticulitis Details of Present Illness: no chnage in symptoms Relevant Family History (Specify if Yes): No Relevant Social History: None Present Medications: see Short Stay Collaborative assessment Medical History: No relevant PMH History of Previous Operations: No relevant previous surgery Allergies: Allergies Allergy/AdvReac Type Severity Reaction Status Date / Time gluten Allergy Severe Gastrointestinal Verified 12/07/24 08:09 Upset metronidazole [From Flagyl] Allergy Severe Elevated Verified 12/07/24 08:09 liver enzymes Penicillins [PENICILLINS] Allergy Unknown Hives, in Verified 12/07/24 08:09 childhood prochlorperazine Allergy Unknown IV tardive Verified 12/07/24 08:09 [From Compazine] dyskinsia levofloxacin [From Levaquin] AdvReac Severe elevated Verified 12/07/24 08:09 LFTs sulfacetamide AdvReac Unknown swelling Verified 12/07/24 08:09 in eyes, eyes drops only Review of Systems Sugical H&P ROS: Negative: Constitution, Cardiovascular, Respiratory, Neurological, Psychiatric, Hem-Onc, Allergic/Immunologic, Gastrointestinal, Genitourinary, Musculoskeletal, Integumentary and Endocrine Exam Surgical H&P Exam: Normal: HEENT, Normal: Heart, Normal: Lungs, Normal: Extremities, Normal: Abdomen and Normal: Skin Plan Diagnosis/Plan: Unchanged I have reviewed the history and physical and performed a pertinent physical examination on my patient. No changes have occurred unless specified. Time Spent With Patient Time: Total time managing care of this patient today ____ minutes.
[2024-12-07] MEDS: cefoTEtan disodium 2 GM VIAL IVPUSH (09:25)
--- NOTE | 2024-12-07 09:56 | P.OP_ITS ---
Operative Note Operative Note Date of Service: 12/07/24 Narrative: Preoperative diagnosis: Sigmoid diverticulitis with perforation and abscess Postoperative diagnosis: Same Procedure: Hand assisted laparoscopic sigmoid colectomy with colorectal anastomosis Surgeon: Rogelio Portillo MD, Christian Hyde MD Sewer And Drain Technician: Maikol Mckeon MS-3 Anesthesia: General endotracheal Indications for procedure: 64-year-old female patient with a long history of sigmoid diverticulitis with multiple infections including an abscess in the left lower lower quadrant required IR drainage. She presents now for elective sigmoid colectomy Operative findings: Marked inflammatory reaction involving the sigmoid with a tortuous bowel in the pelvis. Dense phlegmon abscess was identified in the left lower quadrant with adherent colon to the pelvic sidewall. Dense adhesions were also noted in the pelvis from prior pelvic surgery. Following anastomosis, colonoscopy revealed a intact anastomosis with a blind loop just distal to the anastomosis. This appeared to be part of the redundant rectosigmoid colon. Specimen: Sigmoid colon, TANNAA [email or web address] Estimated blood loss: 50 mL Complications: None Procedure details: Patient was brought to the OR and placed in a supine position. After administering general anesthesia a tap block and rectus sheath block was performed by anesthesia. A Landin catheter was inserted. Patient's abdomen was prepped with ChloraPrep and perineum prepped with Betadine. The patient was then draped in a sterile fashion. A surgical time-out was called the consent confirmed. Patient received preoperative antibiotics and Venodyne boots were in place. A 7 cm incision was made in the lower midline and carried out through subcutaneous tissue, through the linea alba into the abdominal cavity. Adhesions were noted throughout the pelvis which were lysed using combination of sharp dissection and electrocautery. A hand port was then inserted in the abdomen explored. The abdomen was insufflated to a pressure 15 mmHg. A 12 mm trocar was placed in the epigastric region and 12 mm trocar is placed in either the right lower quadrant and left lower quadrant. The patient was then rotated to the the right in the abdomen explored. The descending colon was mobilized along the white line of Toldt. This was extended up to the splenic flexure and the splenic flexure released. Dissection was then continued down to the sigmoid colon. An area of dense adhesions and inflammatory reaction involving the sigmoid colon was identified along the pelvic sidewall. Dissection was carried carefully down along the colon wall. Abscess collection was identified along with phlegmon. The dissection was continued beyond the area of inflammation. An area of transection was decided upon and the Endo-MARIO used to dissect the proximal sigmoid colon. LigaSure was then used to divide the mesentery close to the bowel wall. Dissection was continued down past the area of inflammation. An area of soft bowel was noted beyond this and a Endo- MARIO used to divide the distal sigmoid colon, this was sent as a specimen to pathology. Additional redundant sigmoid colon was noted at this time. This was further mobilized and subsequently re stapled using an Endo-MARIO stapler. A dilator was then brought up through the anus into the rectum to confirmed the location. This was followed by colonoscopy performed by Dr. Hyde. The proximal colon was then brought up through the incision and dilated using the EEA sizers. A pursestring stapler was used to place a pursestring and the bowel dilated to a 28. A 28 EEA stapler was then obtained. The anvil was placed through the proximal bowel and the pursestring tied off. The stapling device was then brought up through the rectum and brought out through the posterior wall of the rectum. This was then connected to the anvil in the stapling device fired. This was additionally reinforced using interrupted 3-0 Surgilon sutures. A leak test was performed and no leak could be identified. At this time a colonoscopy was performed. The blind loop was noted at this time. The abdomen was re-explored and no other communication identified into small bowel or colon. This was felt to be a blind loop from redundant sigmoid colon involving the dense adhesions from the previous infection. It was elected to leave this in place to avoid injury to the surrounding structures. The abdomen was then irrigated with Iricept followed by saline solution. Fascia was then closed using a running looped 0 PDS. Dermis was reapproximated using interrupted 3-0 Polysorb sutures. Skin was closed using skin maria luisa. Sterile dressings were then applied. The patient remained stable hemodynamically throughout the procedure. Sponge, instrument, needle counts reported as correct. The patient was transferred to PACU in stable condition.
--- NOTE | 2024-12-07 13:09 | PHA.MEDREC ---
Addendum entered by Gagandeep Esparza 12/07/24 13:46: review Original Note: Pharmacy Consult ? Medication Reconciliation Pharmacy has reviewed the medication reconciliation done by nursing.
[2024-12-07] MEDS: Dextrose 5 % and Lactated Ring 1,000 ML 125 ML IVCONT (18:19)
[2024-12-07] MEDS: ondansetron HCL 4 MG/2 ML VIAL IVPUSH (19:56)
[2024-12-07] MEDS: HYDROmorphone HCl 0.5 MG/0.5 ML SYRINGE IVPUSH (19:59)
[2024-12-07] MEDS: Metoclopramide HCl 10 MG/2 ML VIAL IVPUSH (21:23)
[2024-12-07] MEDS: Acetaminophen 1,000 MG/100 ML PIGGYBACK 400 MG IV (21:24)
--- NOTE | 2024-12-07 22:56 | PC.NURSE ---
Addendum entered by Madiha Robbins RN 12/08/24 06:34: Patient still not voiding, no urge to void. Bladder scanned for 28 ml. Feels more bloated in upper abdomen. Wants home meds reordered( listed in med. rec.) Dr Portillo made aware just now of this via [facility]. Addendum entered by Madiha Robbins RN 12/08/24 03:00: Patient more awake and states is more comfortable pain trimble. Takes ice chips only for now due to nausea earlier. When Suárez was removed past 1899 yesterday had 300 ml of blood tinged urine in it. Patient did not void since, states no discomfort. Bladder scanned for 24 ml. Original Note: Upon initial assessment noted patient has a FC with no order, bloody urine. Patient still quite drowsy post anesthesia but becoming progressively anxious and aggressive stating it marinelli to urinate and wants suárez out immediately. Stated if not removed now she will pull it out herself. Suárez removed by this RN, no more complaints, will monitor I &O. Patient on a commode stated feels like need to have a BM. Was able to pass small gelatine like movement with scant amount of blood. Medicated for pain and nausea with good relief. Resting comfortably now. Surgical dressings to abdomen dry and intact, ice packs applied for comfort.
[2024-12-08] MEDS: HYDROmorphone HCl 0.5 MG/0.5 ML SYRINGE IVPUSH ×3 (00:52→19:46)
[2024-12-08] MEDS: Dextrose 5 % and Lactated Ring 1,000 ML 125 ML IVCONT ×3 (02:39→21:04)
[2024-12-08] MEDS: Acetaminophen 1,000 MG/100 ML PIGGYBACK 400 MG IV ×3 (02:56→22:50)
[2024-12-08] MEDS: oxyCODONE HCl Immed Release 5 MG TABLET PO ×3 (05:51→23:15)
[2024-12-08 06:00] VITALS: BP 151/86; PULSE 96; RESP 18; TEMP 36.7; O2SAT 96
[2024-12-08 07:00] LABS: MANUAL DIFF FLAG NO
[2024-12-08 07:06] LABS: Basophils Percent Auto 0.1 % (0-2); Hematocrit 41.7 % (37.0-47.0); Hemoglobin 14.1 g/dl (12.0-16.0); Imm Gran Abs Auto 0.05 X10*3/uL (0.00-0.03); Imm Gran Pct Auto 0.3 % (0.0-0.4); Lymphocytes Absolute Auto 0.9 X10*3/uL (1.2-4.9); Lymphocytes Percent Auto 6.1 % (20-40); Mean Corpuscular HGB Conc 33.8 g/dl (31.0-35.0); Mean Corpuscular Hemoglobin 28.5 pg (27.0-33.0); Mean Corpuscular Volume 84.4 fL (80.0-98.0); Mean Platelet Volume 8.6 fL (9.4-12.3); Monocytes Absolute Auto 0.7 X10*3/uL (0.1-1.2); Monocytes Percent Auto 4.6 % (2-11); Neutrophils Absolute Auto 13.6 x10*3/uL (2.0-8.3); Neutrophils Percent Auto 88.9 % (45-73); Platelet Count 183 X10*3/uL (160-400); Red Blood Count 4.94 X10*6/uL (4.20-5.50); Red Cell Distribution Width 14.4 % (11.0-16.0); White Blood Count 15.3 X10*3/uL (4.8-10.8)
[2024-12-08 07:26] LABS: Anion Gap 15 (12-20); Blood Urea Nitrogen 16 mg/dL (9-16); Calcium 8.7 mg/dL (8.4-10.2); Carbon Dioxide 17 mmol/L (22-29); Chloride 109 mmol/L (96-108); Creatinine Clr Calc Pharmacy 31.1; Estimated Glomerular Filt Rate 27; Glucose Fasting 207 mg/dL (60-99); Potassium 4.6 mmol/L (3.3-5.1); Sodium 136 mmol/L (135-145)
--- NOTE | 2024-12-08 07:29 | P.PNGS_ITS ---
<Statement entered by Rogelio Portillo MD - 12/08/24 09:48> Patient seen and examined independently and the above assessment and plan. Straight cath produce 75 mL of fluid therefore will add a small IV bolus and monitor urinary output. Encourage incentive spirometry and ambulation. Subjective Subjective Date of Service: 12/08/24 <Vincent Mckeon - Last Filed: 12/08/24 08:36> 12/08/24 <Suri Chow PA-C - Last Filed: 12/08/24 08:32> 12/08/24 <Rogelio Portillo MD - Last Filed: 12/08/24 09:49> Interval history: Overnight events: Suárez removed Beti is POD 1 from sigmoid resection with subsequent anatomosis of the descending colon indicated for diverticulitis complicated with abcess formation. This morning, she is awake and alert, laying in bed. She has nonradiating epigastric pain that has worsened overnight and into the morning. No emesis, no palpitations, no chest pain. She has ambulated to commode with no falls or syncope. Tolerating liquids. No dyspnea, no chest pain, no leg swelling or pain. She endorses using her incentive spirometry. She reports her left hand is swollen from insuflated IV site. Right hand feels okay. Last BM this morning that was small, with rebecca blood. She reports no surgical site pains or drainage. Suárez removed due to her feeling burning, itching, pain, draining bloodly urine. Suárez removed. Bladder scans showing low residual. <Vincent Mckeon - Last Filed: 12/08/24 08:36> Physical Exam 2 Vital Signs: Vital Signs: Last Vital Signs Temp 98.0 F 12/08/24 06:00 Pulse 96 12/08/24 06:00 Resp 18 12/08/24 06:00 BP 151/86 H 12/08/24 06:00 Pulse Ox 96 12/08/24 06:00 O2 Del Method Nasal Cannula 12/08/24 06:00 O2 Flow Rate 2 12/08/24 06:00 BMI result Body Mass Index 28.3 <Vincent Mckeon - Last Filed: 12/08/24 08:36> Const: General: comfortable, no acute distress, alert and awake <Vincent Mckeon - Last Filed: 12/08/24 08:36> Nutritional Appearance: overweight <[facility] - Last Filed: 12/08/24 08:36> Orientation/consciousness: patient oriented x3 <[facility] - Last Filed: 12/08/24 08:36> Eyes: Conjunctivae: conjunctivae normal <[facility] - Last Filed: 12/08/24 08:36> Sclerae: sclerae normal <[facility] - Last Filed: 12/08/24 08:36> Pupils: Equal, round and reactive pupils present <[facility] - Last Filed: 12/08/24 08:36> Chest: Chest palpation & inspection: normal inspection of the chest < [facility] - Last Filed: 12/08/24 08:36> Resp: Effort & Inspection: normal respiratory effort and able to speak in complete sentences <[facility] - Last Filed: 12/08/24 08:36> Auscultation: clear to auscultation bilaterally <[facility] - Last Filed: 12/08/24 08:36> Percussion: percussion normal <[facility] - Last Filed: 12/08/24 08:36> Cardio: Jugular venous distension: no JVD <[facility] - Last Filed: 12/08/24 08:36> Rate: regular rate <[facility] - Last Filed: 12/08/24 08:36> Rhythm: regular rhythm <[facility] - Last Filed: 12/08/24 08:36> Heart sounds: S1 normal heart sound present and S2 normal heart sound present <[facility] - Last Filed: 12/08/24 08:36> GI: Other: surgical sites have clean bandages with no surrounding erythema <[facility] - Last Filed: 12/08/24 08:36> Inspection: Yes distended and Yes incision (port incisions and midline vertical incision) <[facility] - Last Filed: 12/08/24 08:36> Palpation (GI): Tenderness to palpation present (GI) <[facility] - Last Filed: 12/08/24 08:36> Percussion: Yes normal to percussion <[facility] - Last Filed: 12/08/24 08:36> Auscultation: Hypoactive bowel sounds present <[facility] - Last Filed: 12/08/24 08:36> Skin: General skin exam: no rashes or lesions noted <Suri Chow PA-C - Last Filed: 12/08/24 08:32> Neuro: General: patient oriented x3 <[facility] - Last Filed: 12/08/24 08:36> Cranial nerves: Yes Equal, round and reactive pupils present <[facility] - Last Filed: 12/08/24 08:36> Motor exam (neuro): Normal motor muscle tone present throughout <[facility] - Last Filed: 12/08/24 08:36> Extrem: Right lower extremity: normal to inspection <[facility] - Last Filed: 12/08/24 08:36> Left lower extremity: normal to inspection <[facility] - Last Filed: 12/08/24 08:36> Objective Data Active Medications Dicyclomine HCl (Dicyclomine Hcl 10 Mg Capsule) 10 mg PO BID PRN PRN Reason: Abdominal Discomfort Hydromorphone HCl (Hydromorphone Hcl 0.5 Mg/0.5 Ml Syringe) 0.5 mg IVPUSH Q3H PRN; Protocol PRN Reason: Pain, Severe (Pain Scale 7-10) Last Admin: 12/08/24 00:52 Dose: 0.5 mg Documented By: KIA Acetaminophen (Ofirmev) 1,000 mg in 100 mls @ 400 mls/hr IV Q6H PRN PRN Reason: Pain, Mild (Pain Scale 1-3) Last Infusion: 12/08/24 03:11 Dose: Infused Documented By: KIA Dextrose/Lactated Ringer's (D5lr) 1,000 mls @ 125 mls/hr IVCONT .Q8H JUAN CARLOS Last Admin: 12/08/24 02:39 Dose: 125 mls/hr Documented By: KIA Loratadine (Loratadine 10 Mg Tablet) 10 mg PO DAILY JUAN CARLOS Metoclopramide HCl (Metoclopramide Hcl 10 Mg/2 Ml Vial) 10 mg IVPUSH Q6H PRN PRN Reason: Nausea and Vomiting Last Admin: 12/07/24 21:23 Dose: 10 mg Documented By: ERIKA Omeprazole (Omeprazole 40 Mg Capsule.Dr) 40 mg PO DAILY@0630 [facility] Ondansetron HCl (Ondansetron Hcl 4 Mg/2 Ml Vial) 4 mg IVPUSH QID PRN PRN Reason: Nausea Last Admin: 12/07/24 19:56 Dose: 4 mg Documented By: KIA Oxycodone HCl (Oxycodone Hcl Immed Release 5 Mg Tablet) 5 mg PO Q6H PRN PRN Reason: Pain, Moderate(Pain Scale 4-6) Last Admin: 12/08/24 05:51 Dose: 5 mg Documented By: KIA Sodium Chloride (0.9 % Sodium Chloride Flush 3 Ml Syringe) 3 ml IVFLUSH QSHIFT [facility] Last Admin: 12/08/24 01:10 Dose: Not Given Documented By: KIA Non-Admin Reason: IV Running Zolpidem Tartrate (Zolpidem Tartrate 5 Mg Tablet) 5 mg PO BEDTIME PRN PRN Reason: Insomnia <Vincent Smit - Last Filed: 12/08/24 08:36> Labs CBC & Chem 7: 12/08/24 06:57 12/08/24 06:57 <[facility] - Last Filed: 12/08/24 08:36> Labs: Laboratory Results - last 24 hr 12/08/24 06:57 MCV 84.4 MCH 28.5 MCHC 33.8 RDW 14.4 Plt Count 183 MPV 8.6 L Immature Gran % (Auto) 0.3 Neut % (Auto) 88.9 H Lymph % (Auto) 6.1 L Sterling % (Auto) 4.6 Eos % (Auto) 0.0 Baso % (Auto) 0.1 Lymph # (Auto) 0.9 L Sterling # (Auto) 0.7 Eos # (Auto) 0.0 Baso # (Auto) 0.0 Abs Immat Gran (auto) 0.05 H Absolute Neuts (auto) 13.6 H Absolute Nucleated RBC 0.000 Nucleated RBC % (auto) 0.0 Anion Gap 15 Estim Creat Clear Calc 31.1 Estimated GFR 27 Fasting Glucose 207 H Calcium 8.7 D <Vincent Smit - Last Filed: 12/08/24 08:36> Procedures Date of Service Date of Service: 12/08/24 <Vincent Mckeon - Last Filed: 12/08/24 08:36> 12/08/24 <Suri Chow PA-C - Last Filed: 12/08/24 08:32> 12/08/24 <Rogelio Portillo MD - Last Filed: 12/08/24 09:49> Progress Note: A&P Assessment and plan (1) S/P colon resection: Status: Acute <Vincent Mckeon - Last Filed: 12/08/24 08:36> Assessment and Plan: Beti is a 64 yo female POD 1 after sigmoid resection for diverticulitis c/w abscess formation who is vitally stable. She is afebrile, ambulating to commode. Surgical Sites -Incisions appear to be healing well, with clean bandages noted on exam. No immediate concern for infections. Mild leukocytosis to 15.3, which is expected in the setting of recent surgical procedure. Postrenal TAMERA -She is currently oliguric, with hematuria noted in suárez intraoperatively and immediately post-operatively. Urine output 600 mL, Cr elevated to 1.9, BUN 16. Obstructive TAMERA is likely given BUN/Cr <10, with the possibility of clot formation from rebecca hematuria. -Will place straight cath. -I&Os Epigastric pain Most likely due to surgical procedure with resultant localized inflammation. No n/v, though she does have increased regurgitation and belching this morning. The pain does not radiate and is mildly tender to palpation. -dicyclomine, fexofenadine, and ondansetron for abdominal pain and nausea control -Omeprazole 40 mg PO qd for GERD Pain Management -acetominophen 1,000 mg every 6 hrs PRN -oxycodone 5 mg orally q6hr PRN for mod-severe pain. -dilaudid .5 mg q3hr PRN for severe pain DVT prophylaxis -ambulate as tolerable -SCDs Incentive spirometry for atelectasis prevention Davidson Mckeon, MS3 Agree with above assessment and plan by Davidson Mckeon MS-3. Patient is POD #1 s/p hand assisted laparoscopic sigmoid colectomy with colorectal anastomosis. Suárez removed last night due to irritation however has not voided and has had low residual on bladder scan. Denies nausea, vomiting, flatus. Has not been OOB yet. Abd overall benign with clean and intact dressings, appropriate post op tenderness. Will straight cath x 1 given no voiding in o <Vincent Mckeon - Last Filed: 12/08/24 08:36> Beti is a 64 yo female POD 1 after sigmoid resection for diverticulitis c/w abscess formation who is vitally stable. She is afebrile, ambulating to commode. Surgical Sites -Incisions appear to be healing well, with clean bandages noted on exam. No immediate concern for infections. Mild leukocytosis to 15.3, which is expected in the setting of recent surgical procedure. Oliguria -She is currently oliguric, with hematuria noted in suárez intraoperatively and immediately post-operatively. Urine output 600 mL. Obstructive TAMERA is likely given the possibility of clot formation. -Will place straight cath. -I&Os Epigastric pain Most likely due to surgical procedure with resultant localized inflammation. No n/v, though she does have increased regurgitation and belching this morning. The pain does not radiate and is mildly tender to palpation. -dicyclomine, fexofenadine, and ondansetron for abdominal pain and nausea control -Omeprazole 40 mg PO qd for GERD Pain Management -acetominophen 1,000 mg every 6 hrs PRN -oxycodone 5 mg orally q6hr PRN for mod-severe pain. -dilaudid .5 mg q3hr PRN for severe pain DVT prophylaxis -ambulate as tolerable -SCDs Incentive spirometry for atelectasis prevention Davidson Mckeon, MS3 Agree with above assessment and plan by Davidson Mckeon MS-3. Patient is POD #1 s/p hand assisted laparoscopic sigmoid colectomy with colorectal anastomosis for recurrent diverticulitis with abscess. Suárez removed last night due to irritation however has not voided and has had low residual on bladder scan. Hemodynamically stable. Abd overall benign with clean and intact dressings, appropriate post op tenderness. AM labs reviewed. Will straight cath x 1 given no voiding in over 12hrs. May require suárez reinsertion. TAMERA on labs this am, follow renal function. Leukocytosis likely reactive as noted above. Cont clear liquids until return of GI function. Cont OOB/ambulation, incentive spirometer use 10x/hr. Cont IVF, pain control. <Suri Chow PA-C - Last Filed: 12/08/24 08:32> Time Spent With Patient Time: Total time managing care of this patient today ____ minutes. <Vincent Mckeon - Last Filed: 12/08/24 08:36> Quality Stroke Does the patient have a stroke diagnosis?: No <Suri Chow PA-C - Last Filed: 12/08/24 08:32> VTE Prior VTE?: No <Suri Chow PA-C - Last Filed: 12/08/24 08:32> VTE Risk Level:: Surgical - moderate <Vincent Mckeon - Last Filed: 12/08/24 08:36> VTE Device Contraindication: N/A - Device Ordered <Vincent Mckeon - Last Filed: 12/08/24 08:36> VTE Drug Contraindication: Patient Refused <Vincent Mckeon - Last Filed: 12/08/24 08:36>
[2024-12-08 07:47] VITALS: TEMP 37.1
--- NOTE | 2024-12-08 08:16 | HO.POSTANES ---
Post Anesthesia Evaluation Post Anesthesia Evaluation Date of Service: 12/08/24 Vital Signs: Vital Signs Temp Pulse Resp BP Pulse Ox O2 Del Method O2 Flow Rate 12/08/24 07:47 98.8 F 12/08/24 06:00 98.0 F 96 18 151/86 H 96 Nasal Cannula 2 12/07/24 22:00 98.6 F 100 17 167/88 H 94 Nasal Cannula 2 Anesthesia: General Mental Status: Awake Pain Control: Satisfactory Nausea/Vomiting: None Hydration: Adequate Anesthesia-Related Issues: No Anes. Related Issues
[2024-12-08] MEDS: Loratadine 10 MG TABLET PO (08:40)
[2024-12-08] MEDS: Omeprazole 40 MG CAPSULE.DR PO (08:40)
[2024-12-08] MEDS: 0.9 % Sodium Chloride Flush 3 ML SYRINGE IVFLUSH (08:43)
[2024-12-08] MEDS: 0.9 % Sodium Chloride 500 ML IV (10:30)
--- NOTE | 2024-12-08 11:04 | PC.NURSE ---
Addendum entered by Brianda Ho RN 12/08/24 18:07: Post void residual 58ml. Addendum entered by Brianda Ho RN 12/08/24 16:41: At approximately 1400, pt was bladder scanned for 40ml, REBECCA made aware. Pt ambulated around unit with staff and was able to void 100ml of urine, REBECCA Chow made aware. Original Note: Per pervious shift FC was removed 12/07 at 1900. Pt has been unable to void since then with small amount resulted in bladder scan. Assumed care of pt at 06:45 and pt continues to be unable to void, no signs and symptoms of bladder discomfort and no urge, MD Portillo made aware. Pt straight cathed per orders for 75ML pink tinged urine at 0830 , pt tolerated well. Made aware, 500ml IVF bolus ordered.
--- NOTE | 2024-12-08 11:06 | MHC.CM.PN ---
PT STATES SHE LIVES WITH BROTHER IN HOUSE NO SERVICES OR DME PCP- DR. AVILA PO NO HCP JESSICA-TOSIN DCP- HOME SELF CARE VIA RIDE FROM FRIEND ( OUMAR [phone])
[2024-12-08 11:47] VITALS: BP 134/76; PULSE 85; RESP 18; O2SAT 91
[2024-12-08 14:00] VITALS: BP 150/79; PULSE 86; RESP 14; TEMP 37.2; O2SAT 93
[2024-12-08] MEDS: ondansetron HCL 4 MG/2 ML VIAL IVPUSH ×2 (15:06→23:15)
[2024-12-08] MEDS: Zolpidem Tartrate 5 MG TABLET PO (21:09)
[2024-12-08 22:00] VITALS: BP 159/94; PULSE 79; RESP 18; TEMP 37.3; O2SAT 95
--- NOTE | 2024-12-08 23:24 | PC.NURSE ---
Addendum entered by Madiha Robbins RN 12/09/24 02:27: Patient just voided 150 ml of pink tinged urine. Addendum entered by Madiha Robbins RN 12/09/24 01:52: Patient up and ambulating in hallway, still not voiding. Drinking more water , IV running. No fever, confusion or fatigue. Not passing gas yet, no BM. Original Note: Patient continues not having the urge to void, Bladder scanned for 30 ml. To confirm if bladder scanner is functioning properly another unit was brought from [facility] unit, patient scanned for 33 ml.
[2024-12-09] VITALS (7 sets, daily range): BP systolic 121–168; BP diastolic 58–96; PULSE 84–136; RESP 16–18; TEMP 36.4–37.5; O2SAT 92–96
--- NOTE | 2024-12-09 | ECG_ITS ---
Test Reason : tachycardia Blood Pressure : */* mmHG Vent. Rate : 122 BPM Atrial Rate : 122 BPM P-R Int : 138 ms QRS Dur : 80 ms QT Int : 302 ms P-R-T Axes : 29 19 18 degrees QTcB Int : 430 ms Sinus tachycardia Otherwise normal ECG When compared with ECG of 23-Nov-2024 13:59, Vent. rate has increased by 52 bpm Nonspecific T wave abnormality no longer evident in Anterior leads Referred By: Masoud Cartagena Electronically Signed By: TREVOR IBRAHIM
[2024-12-09] MEDS: HYDROmorphone HCl 0.5 MG/0.5 ML SYRINGE IVPUSH ×5 (02:09→19:44)
[2024-12-09] MEDS: Dextrose 5 % and Lactated Ring 1,000 ML 125 ML IVCONT (05:02)
[2024-12-09] MEDS: Omeprazole 40 MG CAPSULE.DR PO (06:10)
[2024-12-09] MEDS: oxyCODONE HCl Immed Release 5 MG TABLET PO ×3 (06:26→20:47)
[2024-12-09 07:06] LABS: Anion Gap 16 (12-20); Blood Urea Nitrogen 28 mg/dL (9-16); Calcium 9.1 mg/dL (8.4-10.2); Carbon Dioxide 17 mmol/L (22-29); Chloride 105 mmol/L (96-108); Creatinine Clr Calc Pharmacy 16.8; Estimated Glomerular Filt Rate 13; Glucose Fasting 138 mg/dL (60-99); Sodium 133 mmol/L (135-145)
[2024-12-09] MEDS: Loratadine 10 MG TABLET PO (07:13)
[2024-12-09] MEDS: 0.9 % Sodium Chloride Flush 3 ML SYRINGE IVFLUSH (07:13)
[2024-12-09] MEDS: 0.9 % Sodium Chloride 500 ML IV (07:57)
[2024-12-09 08:10] LABS: MANUAL DIFF FLAG NO
[2024-12-09 08:15] LABS: Basophils Percent Auto 0.1 % (0-2); Hematocrit 42.6 % (37.0-47.0); Imm Gran Abs Auto 0.14 X10*3/uL (0.00-0.03); Imm Gran Pct Auto 0.7 % (0.0-0.4); Lymphocytes Absolute Auto 2.7 X10*3/uL (1.2-4.9); Lymphocytes Percent Auto 13.2 % (20-40); Mean Corpuscular HGB Conc 32.9 g/dl (31.0-35.0); Mean Corpuscular Hemoglobin 28.3 pg (27.0-33.0); Mean Corpuscular Volume 86.2 fL (80.0-98.0); Mean Platelet Volume 9.1 fL (9.4-12.3); Monocytes Absolute Auto 1.2 X10*3/uL (0.1-1.2); Neutrophils Absolute Auto 16.1 x10*3/uL (2.0-8.3); Platelet Count 229 X10*3/uL (160-400); Red Blood Count 4.94 X10*6/uL (4.20-5.50); Red Cell Distribution Width 14.8 % (11.0-16.0); White Blood Count 20.1 X10*3/uL (4.8-10.8)
--- NOTE | 2024-12-09 08:15 | PM.PNGS ---
Subjective Subjective Date of Service: 12/09/24 Interval history: Feels improved this morning. Was able to pass a small amount of urine which was clear and slightly pink in color. No flatus or BM. Physical Exam Vital Signs: Vital Signs: Last Vital Signs Temp 98.5 F 12/09/24 06:00 Pulse 106 H 12/09/24 06:00 Resp 18 12/09/24 06:00 BP 157/91 H 12/09/24 06:00 Pulse Ox 93 12/09/24 06:00 O2 Del Method Room Air 12/09/24 06:00 O2 Flow Rate 2 12/08/24 06:00 BMI result Body Mass Index 28.3 Const: General: no acute distress Nutritional Appearance: well nourished Orientation/consciousness: patient oriented x3 Resp: Effort & Inspection: normal respiratory effort GI: Other: Distended, tympany to percussion. Incision clean and intact. Skin: Other: Warm, dry, no rash Neuro: General: patient oriented x3 Objective Data Active Medications Dicyclomine HCl (Dicyclomine Hcl 10 Mg Capsule) 10 mg PO BID PRN PRN Reason: Abdominal Discomfort Hydromorphone HCl (Hydromorphone Hcl 0.5 Mg/0.5 Ml Syringe) 0.5 mg IVPUSH Q3H PRN; Protocol PRN Reason: Pain, Severe (Pain Scale 7-10) Last Admin: 12/09/24 02:09 Dose: 0.5 mg Documented By: KIA Acetaminophen (Ofirmev) 1,000 mg in 100 mls @ 400 mls/hr IV Q6H PRN PRN Reason: Pain, Mild (Pain Scale 1-3) Last Infusion: 12/08/24 23:20 Dose: Infused Documented By: KIA Dextrose/Lactated Ringer's (D5lr) 1,000 mls @ 125 mls/hr IVCONT .Q8H JUAN CARLOS Last Admin: 12/09/24 05:02 Dose: 125 mls/hr Documented By: KIA Lactated Ringer's (Lr) 1,000 mls @ 125 mls/hr IVCONT .Q8H JUAN CARLOS Loratadine (Loratadine 10 Mg Tablet) 10 mg PO DAILY JUAN CARLOS Last Admin: 12/09/24 07:13 Dose: 10 mg Documented By: FAUSTINO Metoclopramide HCl (Metoclopramide Hcl 10 Mg/2 Ml Vial) 10 mg IVPUSH Q6H PRN PRN Reason: Nausea and Vomiting Last Admin: 12/07/24 21:23 Dose: 10 mg Documented By: ERIKA Omeprazole (Omeprazole 40 Mg Capsule.Dr) 40 mg PO DAILY@0630 [facility] Last Admin: 12/09/24 06:10 Dose: 40 mg Documented By: KIA Ondansetron HCl (Ondansetron Hcl 4 Mg/2 Ml Vial) 4 mg IVPUSH QID PRN PRN Reason: Nausea Last Admin: 12/08/24 23:15 Dose: 4 mg Documented By: KIA Oxycodone HCl (Oxycodone Hcl Immed Release 5 Mg Tablet) 5 mg PO Q6H PRN PRN Reason: Pain, Moderate(Pain Scale 4-6) Last Admin: 12/09/24 06:26 Dose: 5 mg Documented By: KIA Sodium Chloride (0.9 % Sodium Chloride Flush 3 Ml Syringe) [facility] Last Admin: 12/09/24 07:13 Dose: 3 ml Documented By: FAUSTINO Zolpidem Tartrate (Zolpidem Tartrate 5 Mg Tablet) 5 mg PO BEDTIME PRN PRN Reason: Insomnia Last Admin: 12/08/24 21:09 Dose: 5 mg Documented By: KIA Labs 12/08/24 06:57 12/09/24 06:34 Labs: Laboratory Results - last 24 hr 12/09/24 06:34 Hold Purple Top SEE NOTE Anion Gap 16 Estim Creat Clear Calc 16.8 Estimated GFR 13 Fasting Glucose 138 H Calcium 9.1 Procedures Date of Service Date of Service: 12/09/24 Progress Note: A&P Assessment and plan (1) Acute kidney injury: Status: Acute (2) Diverticulitis of intestine with abscess: Status: Acute (3) S/P colon resection: Status: Acute Plan Pod 2 following hand assisted laparoscopic sigmoid colectomy. Patient with minimal urine output with elevated BUN and creatinine. We will bolus with normal saline this morning. Check abdominal ultrasound. Hospitalist consultation requested. Continue ambulation, incentive spirometry. We will continue on clear liquid diet. Time Spent With Patient Time: Total time managing care of this patient today ____ minutes. Quality Stroke Does the patient have a stroke diagnosis?: No VTE Prior VTE?: No VTE Risk Level:: Surgical - moderate VTE Device Contraindication: N/A - Device Ordered VTE Drug Contraindication: Patient Refused
[2024-12-09 08:46] LABS: Estimated Average Glucose 100 mg/dL; Hemoglobin A1c % 5.1 % (<6.0)
[2024-12-09] MEDS: Lactated Ringers 1,000 ML 125 ML IVCONT ×2 (09:31→17:49)
[2024-12-09 09:56] LABS: ABG Base Excess -6.9 mmol/L; ABG HCO3 17 mmol/L (22-26); ABG pCO2 32 mmHg (32-45); ABG pH 7.34 (7.35-7.45); ABG pO2 70 mmHg (83-108)
[2024-12-09 10:24] LABS: ABG Refer to POC result
[2024-12-09 10:37] LABS: Lactic Acid 1.5 mmol/L (0.5-2.0)
[2024-12-09 10:43] LABS: B Type Natriuretic Peptide 14 pg/mL (<100)
[2024-12-09 11:03] LABS: Troponin-I High Sensitivity < 2.7 ng/L (<3.5-17.0)
--- NOTE | 2024-12-09 11:55 | MHC.CM.PN ---
POD#2 Patient remains on clear liquid diet. Hospitalist consult has been ordered. An Abdominal U.S. is scheduled for today. CM will continue to follow for discharge. DP Home self care via private transportation.
[2024-12-09 12:20] LABS: Appearance Urine Cloudy; Color Urine Yellow; Glucose Urine UA 100 mg/dL (Negative); Leukocyte Esterase Urine Small (1+) (Negative); Nitrite Urine Negative (Negative); PH 6.5 (5.0-9.0); Specific Gravity - Urine 1.015 (1.005-1.025); UMIC TRIGGER UA YES; Urine Blood Large (3+) (Negative); Urine Ketones Negative (Negative); Urine Protein 300 (3+) mg/dL (Neg-Trace)
[2024-12-09 12:22] LABS: Bacteria Urine None Seen (None Seen); RBC Urine >20 /HPF (0-2); WBC Urine >50 /HPF (0-5)
[2024-12-09] MEDS: Lactated Ringers 1,000 ML 999 ML IV (12:27)
[2024-12-09] MEDS: ondansetron HCL 4 MG/2 ML VIAL IVPUSH (12:44)
[2024-12-09 12:46] LABS: Creatinine Urine 62.95 mg/dL
[2024-12-09 13:01] LABS: Influenza A PCR NEGATIVE (Negative); Influenza B PCR NEGATIVE (Negative); Resp Syncy Virus RNA Qual PCR NEGATIVE (Negative); SARS COV2 PCR INHOUSE NEGATIVE (Negative)
[2024-12-09] MEDS: Piperacillin Sodium/Tazobactam 3.375 GM in 0.9 % Sodium Chloride 50 ML IV ×2 (13:35→19:18)
--- NOTE | 2024-12-09 13:48 | P.CONNP_ITS ---
History of Present Illness Reason for Consult Consult date: 12/09/24 Reason for consult: TAMERA Chief Complaint Chief complaint: Sigmoid diverticulitis History of Present Illness Narrative: 63-year-old female patient with a past medical history of IBS, GERD, cervical cancer and diverticulitis presenting to the emergency department recently with complaints of abdominal pain . The pain was similar to previous episodes of diverticulitis. While in the hospital, she was found to have an abscess which was increasing in size therefore underwent IR drainage. She continues to have the drain in at this time and after 5 weeks is reporting no discharge from the tube. She is currently Pod 2 following hand assisted laparoscopic sigmoid colectomy. She is currently in TAMERA with oliguria. Nephrology has been consulted to assist in her clinical care during her current hospital stay Review of Systems Review of Systems Yes all other systems are reviewed and are negative PMFSH Past Medical History Medical History (Updated 12/09/24 @ 08:17 by Rogelio Portillo MD) IBS (irritable bowel syndrome) Slow to wake up after anesthesia History of duodenal ulcer Diverticulosis Chronic diarrhea Cervical cancer (~08/2018) CTS (carpal tunnel syndrome) Peptic ulcer disease (~2004) Allergic rhinitis GERD (gastroesophageal reflux disease) Family History Family History Father Family history of Alzheimer's disease Mother History of high blood pressure History of depression Surgical History Surgical History (Updated 12/08/24 @ 08:32 by Suri Chow PA-C) Hx of hand surgery (2023) Hx of endoscopy History of colonoscopy S/P bilateral breast reduction (~07/2019) S/P appendectomy H/O: hysterectomy Social History Social History (Updated 11/23/24 @ 13:34 by Kayla Delarosa RN) Household Members: Family Household Members Other:: brother Housing: House Are you a primary memory care program director to a significant other at home: Yes (brother age 65) Do you presently have visiting nurse or other home services: No Alcohol intake: current Alcohol intake frequency: does not drink Patient Tobacco Use Status: Never used Tobacco e-Cigarette/Vaping Use: Never Used Second Hand Smoke Exposure: Yes Use of substances other than those prescribed or required for medical reasons: Unable to respond Currently Displaying Signs/Symptoms of Drug Intoxication Withdrawal: No Have you been hit, kicked, punched, or otherwise hurt by someone within the past year? If so, by whom?: No Are you DNR?: No Advance Directives: No Advance Directives Information Provided: Yes Advance Directives on File: No Do you have a plan to hurt others: No Plan Recently lost weight without trying: Yes How much weight loss: 24-33 pounds Eating poorly because of decreased appetite: Yes Nutrition screen score: 6 Patient : No Poor oral hygiene: No service: No Current occupational status: 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 Hearing needs: No Vision needs: No Meds Allergies Allergy/AdvReac Type Severity Reaction Status Date / Time gluten Allergy Severe Gastrointestinal Verified 12/07/24 08:09 Upset metronidazole [From Flagyl] Allergy Severe Elevated Verified 12/07/24 08:09 liver enzymes Penicillins [PENICILLINS] Allergy Unknown Hives, in Verified 12/07/24 08:09 childhood prochlorperazine Allergy Unknown IV tardive Verified 12/07/24 08:09 [From Compazine] dyskinsia levofloxacin [From Levaquin] AdvReac Severe elevated Verified 12/07/24 08:09 LFTs sulfacetamide AdvReac Unknown swelling Verified 12/07/24 08:09 in eyes, eyes drops only Active Medications: Current Medications Dicyclomine HCl (Dicyclomine Hcl 10 Mg Capsule) 10 mg PO BID PRN PRN Reason: Abdominal Discomfort Hydromorphone HCl (Hydromorphone Hcl 0.5 Mg/0.5 Ml Syringe) 0.5 mg IVPUSH Q3H PRN; Protocol PRN Reason: Pain, Severe (Pain Scale 7-10) Last Admin: 12/09/24 13:39 Dose: 0.5 mg Acetaminophen (Ofirmev) 1,000 mg in 100 mls @ 400 mls/hr IV Q6H PRN PRN Reason: Pain, Mild (Pain Scale 1-3) Last Infusion: 12/08/24 23:20 Dose: Infused Lactated Ringer's (Lr) 1,000 mls @ 125 mls/hr IVCONT .Q8H [facility] CARL[facility] Last Admin: 12/09/24 09:31 Dose: 125 mls/hr Piperacillin Sod/Tazobactam (Sod 3.375 gm/ Sodium Chloride) 50 mls @ 100 mls/hr IV Q6H [facility] CARLOS Last Admin: 12/09/24 13:35 Dose: 100 mls/hr Loratadine (Loratadine 10 Mg Tablet) 10 mg PO DAILY [facility] Last Admin: 12/09/24 07:13 Dose: 10 mg Metoclopramide HCl (Metoclopramide Hcl 10 Mg/2 Ml Vial) 10 mg IVPUSH Q6H PRN PRN Reason: Nausea and Vomiting Last Admin: 12/07/24 21:23 Dose: 10 mg Omeprazole (Omeprazole 40 Mg Capsule.Dr) 40 mg PO DAILY@0630 [facility] Last Admin: 12/09/24 06:10 Dose: 40 mg Ondansetron HCl (Ondansetron Hcl 4 Mg/2 Ml Vial) 4 mg IVPUSH QID PRN PRN Reason: Nausea Last Admin: 12/09/24 12:44 Dose: 4 mg Oxycodone HCl (Oxycodone Hcl Immed Release 5 Mg Tablet) 5 mg PO Q6H PRN PRN Reason: Pain, Moderate(Pain Scale 4-6) Last Admin: 12/09/24 12:44 Dose: 5 mg Sodium Chloride (0.9 % Sodium Chloride Flush 3 Ml Syringe) 3 ml IVFLUSH QSHIFT [facility] Last Admin: 12/09/24 07:13 Dose: 3 ml Zolpidem Tartrate (Zolpidem Tartrate 5 Mg Tablet) 5 mg PO BEDTIME PRN PRN Reason: Insomnia Last Admin: 12/08/24 21:09 Dose: 5 mg Home Medications ?Medication ?Instructions ?Recorded ?Confirmed ?Last Taken ?Type dicyclomine 10 mg capsule 10 mg PO BID PRN Abdominal 09/01/24 12/07/24 08/30/24 History Discomfort fexofenadine 180 mg tablet 180 mg PO DAILY 09/01/24 12/07/24 08/31/24 History Lactobacillus rhamnosus GG 10 1 cap PO DAILY 11/23/24 11/23/24 Unknown History billion cell capsule (Culturelle) omeprazole 40 mg capsule,delayed 40 mg PO DAILY 11/23/24 12/07/24 12/07/24 History release Physical Exam Vital Signs: Last Vital Signs Temp 98.5 F 12/09/24 06:00 Pulse 106 H 12/09/24 06:00 Resp 18 12/09/24 06:00 BP 157/91 H 12/09/24 06:00 Pulse Ox 93 12/09/24 06:00 O2 Del Method Room Air 12/09/24 06:00 O2 Flow Rate 2 12/08/24 06:00 BMI result Body Mass Index 28.3 Const General: comfortable and no acute distress Orientation/consciousness: patient oriented x3 HEENT Head: Yes normocephalic Mouth: Normal oral and palatal mucosa present Eyes EOM: EOMs intact bilaterally Neck Neck: Yes supple Resp Auscultation: clear to auscultation bilaterally Cardio Jugular venous distension: no JVD Rate: regular rate GI Palpation (GI): Soft to palpation Auscultation: normal bowel sounds Skin General skin exam: no rashes or lesions noted Neuro General: patient oriented x3 and moves all extremities Results Lab Results 12/09/24 06:34 12/09/24 06:34 Lab results: Chemistry 12/08/24 12/09/24 06:57 06:34 Sodium 136 133 L Potassium 4.6 D 5.0 Carbon Dioxide 17 L 17 L BUN 16 28 H Creatinine 1.90 H 3.50 H Calcium 8.7 D 9.1 Hematology 12/08/24 12/09/24 06:57 06:34 WBC 15.3 H 20.1 H Hgb 14.1 14.0 Plt Count 183 229 D Urinalysis 12/09/24 12:01 Urine Color Yellow Urine Appearance Cloudy Urine pH 6.5 Ur Specific [place] 1.015 Urine Protein 300 (3+) H Urine Glucose (UA) 100 H Urine Ketones Negative Urine Blood Large (3+) H Urine Nitrite Negative Ur Leukocyte Esterase Small (1+) H Urine RBC >20 H Urine WBC >50 H Ur Squamous Epith Cells 6-10 Hyaline Casts 3-5 Urine Studies 12/09/24 12:02 Urine Creatinine 62.95 Assessment and Plan (1) Acute kidney injury: Status: Acute Plan TAMERA due to tubular injury Has normal renal fn @ baseline No hydro by imaging No reason to suspect GN/AIN Urine output marginal Shall C/W IV fluids/ supportive care for now No indication for renal replacement shall continue to closely F/U Procedures Date of Service Date of Service: 12/09/24
--- NOTE | 2024-12-09 14:04 | PM.EVENT ---
Event Note Date of Service: 12/09/24 Event Note: Patient with abdominal distention, low urine output, tachycardia, temperature 98.9. WBC 20 K. patient meets sepsis criteria. Blood cultures ordered x2. Patient started on IV antibiotics. IV fluid being administered. Ultrasound abdomen reveals normal kidneys but fluid in abdomen. Appreciate Dr. Cobb's input. Patient was awaiting CT chest, abdomen and pelvis. Time Spent With Patient Time: Total time managing care of this patient today ____ minutes.
--- NOTE | 2024-12-09 14:21 | HO.PM.IMCN ---
History of Present Illness Data of Consult Service Date: 12/09/24 Requesting physician: Rogelio Portillo Primary Care Provider: Carmencita Rangel MD HPI Reason for consult: TAMERA 64yo F with IBS, GERD and recurrent sigmoid diverticulitis with history of IR-guided drainage of LLQ abscess; admitted to the Gen Surg service after elective hand-assisted laparoscopic sigmoid colectomy with colorectal anastomosis on 12/07/24. Operative findings notable for inflammed sigmoid colon with redundant bowel; dense phlegmon/abscess in LLQ with colon adherent to pelvic sidewall. Postoperative, serum creatinine has been worsening from 0.70 baseline [11/23/24] to 1.9 yesterday and 3.5 today; BUN 28. Urine output has been low. IV fluids were ordered, but she developed tachycardia to the 130s so we were called to consult medically. Patient denies any history of medical renal disease, chronic pulmonary disease, or heart failure. She notes abdominal pain and distension. Somewhat short of breath though improved on oxygen; though, not actually hypoxic. Renal US without any hydronephrosis; there is mild-moderate ascites. CXR with LLL atelecatasis versus pneumonia. No DVT on bilateral leg duplex US. Troponin <2.7, BNP 14, lactate 1.5, procalcitonin 0.4. ABG 7.. Review of Systems Review of Systems: Yes all other systems are reviewed and are negative [facility] Medical History (Updated 12/09/24 @ 08:17 by Rogelio Portillo MD) IBS (irritable bowel syndrome) Slow to wake up after anesthesia History of duodenal ulcer Diverticulosis Chronic diarrhea Cervical cancer (~08/2018) CTS (carpal tunnel syndrome) Peptic ulcer disease (~2004) Allergic rhinitis GERD (gastroesophageal reflux disease) Family History Father Family history of Alzheimer's disease Mother History of high blood pressure History of depression Surgical History (Updated 12/08/24 @ 08:32 by Suri Chow PA-C) Hx of hand surgery (2023) Hx of endoscopy History of colonoscopy S/P bilateral breast reduction (~07/2019) S/P appendectomy H/O: hysterectomy Social History (Updated 11/23/24 @ 13:34 by Kayla Delarosa RN) Household Members: Family Household Members Other:: brother Housing: House Are you a primary pet caregiver to a significant other at home: Yes (brother age 65) Do you presently have visiting nurse or other home services: No Alcohol intake: current Alcohol intake frequency: does not drink Patient Tobacco Use Status: Never used Tobacco e-Cigarette/Vaping Use: Never Used Second Hand Smoke Exposure: Yes Use of substances other than those prescribed or required for medical reasons: Unable to respond Currently Displaying Signs/Symptoms of Drug Intoxication Withdrawal: No Have you been hit, kicked, punched, or otherwise hurt by someone within the past year? If so, by whom?: No Are you DNR?: No Advance Directives: No Advance Directives Information Provided: Yes Advance Directives on File: No Do you have a plan to hurt others: No Plan Recently lost weight without trying: Yes How much weight loss: 24-33 pounds Eating poorly because of decreased appetite: Yes Nutrition screen score: 6 Patient : No Poor oral hygiene: No service: No Current occupational status: 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 Hearing needs: No Vision needs: No Meds Allergies Allergy/AdvReac Type Severity Reaction Status Date / Time gluten Allergy Severe Gastrointestinal Verified 12/07/24 08:09 Upset metronidazole [From Flagyl] Allergy Severe Elevated Verified 12/07/24 08:09 liver enzymes Penicillins [PENICILLINS] Allergy Unknown Hives, in Verified 12/07/24 08:09 childhood prochlorperazine Allergy Unknown IV tardive Verified 12/07/24 08:09 [From Compazine] dyskinsia levofloxacin [From Levaquin] AdvReac Severe elevated Verified 12/07/24 08:09 LFTs sulfacetamide AdvReac Unknown swelling Verified 12/07/24 08:09 in eyes, eyes drops only Active Medications: Current Medications Dicyclomine HCl (Dicyclomine Hcl 10 Mg Capsule) 10 mg PO BID PRN PRN Reason: Abdominal Discomfort Hydromorphone HCl (Hydromorphone Hcl 0.5 Mg/0.5 Ml Syringe) 0.5 mg IVPUSH Q3H PRN; Protocol PRN Reason: Pain, Severe (Pain Scale 7-10) Last Admin: 12/09/24 13:39 Dose: 0.5 mg Acetaminophen (Ofirmev) 1,000 mg in 100 mls @ 400 mls/hr IV Q6H PRN PRN Reason: Pain, Mild (Pain Scale 1-3) Last Infusion: 12/08/24 23:20 Dose: Infused Lactated Ringer's (Lr) 1,000 mls @ 125 mls/hr IVCONT .Q8H [facility] Last Admin: 12/09/24 09:31 Dose: 125 mls/hr Piperacillin Sod/Tazobactam (Sod 3.375 gm/ Sodium Chloride) 50 mls @ 100 mls/hr IV Q6H [facility] Last Admin: 12/09/24 13:35 Dose: 100 mls/hr Loratadine (Loratadine 10 Mg Tablet) 10 mg PO DAILY [facility] Last Admin: 12/09/24 07:13 Dose: 10 mg Metoclopramide HCl (Metoclopramide Hcl 10 Mg/2 Ml Vial) 10 mg IVPUSH Q6H PRN PRN Reason: Nausea and Vomiting Last Admin: 12/07/24 21:23 Dose: 10 mg Omeprazole (Omeprazole 40 Mg Capsule.Dr) 40 mg PO DAILY@0630 [facility] Last Admin: 12/09/24 06:10 Dose: 40 mg Ondansetron HCl (Ondansetron Hcl 4 Mg/2 Ml Vial) 4 mg IVPUSH QID PRN PRN Reason: Nausea Last Admin: 12/09/24 12:44 Dose: 4 mg Oxycodone HCl (Oxycodone Hcl Immed Release 5 Mg Tablet) 5 mg PO Q6H PRN PRN Reason: Pain, Moderate(Pain Scale 4-6) Last Admin: 12/09/24 12:44 Dose: 5 mg Sodium Chloride (0.9 % Sodium Chloride Flush 3 Ml Syringe) 3 ml IVFLUSH QSHIFT [facility] Last Admin: 12/09/24 07:13 Dose: 3 ml Zolpidem Tartrate (Zolpidem Tartrate 5 Mg Tablet) 5 mg PO BEDTIME PRN PRN Reason: Insomnia Last Admin: 12/08/24 21:09 Dose: 5 mg Home Medications ?Medication ?Instructions ?Recorded ?Confirmed ?Last Taken ?Type dicyclomine 10 mg capsule 10 mg PO BID PRN Abdominal 09/01/24 12/07/24 08/30/24 History Discomfort fexofenadine 180 mg tablet 180 mg PO DAILY 09/01/24 12/07/24 08/31/24 History Lactobacillus rhamnosus GG 10 1 cap PO DAILY 11/23/24 11/23/24 Unknown History billion cell capsule (Culturelle) omeprazole 40 mg capsule,delayed 40 mg PO DAILY 11/23/24 12/07/24 12/07/24 History release Physical Exam Vital Signs and Narrative: Vital Signs: Last Vital Signs Temp 98.9 F 12/09/24 13:59 Pulse 131 H 12/09/24 13:59 Resp 18 12/09/24 13:59 BP 168/96 H 12/09/24 13:59 Pulse Ox 92 12/09/24 13:59 O2 Del Method Nasal Cannula 12/09/24 13:59 O2 Flow Rate 2 12/09/24 13:59 BMI result Body Mass Index 28.3 Gen: ill-appearing but speaking in complete sentences HEENT: sclera anicteric, moist mucus membranes Neck: supple Lungs: diminished, no adventitious sounds Heart: regular, tachycardic, no murmurs Abd: distended, diffusely tender, incision clean/dry/intact Ext: no edema Skin: warm/well-perfused Neuro: alert and oriented x3, no focal findings Psych: appropriate affect Results Labs 12/09/24 06:34 12/09/24 06:34 Labs: Laboratory Results - last 24 hr 12/09/24 12/09/24 12/09/24 06:34 09:53 10:12 MCV 86.2 MCH 28.3 MCHC 32.9 RDW 14.8 Plt Count 229 D MPV 9.1 L Immature Gran % (Auto) 0.7 H Neut % (Auto) 80.0 H Lymph % (Auto) 13.2 L [place] % (Auto) 6.0 Eos % (Auto) 0.0 Baso % (Auto) 0.1 Lymph # (Auto) 2.7 [place] # (Auto) 1.2 Eos # (Auto) 0.0 Baso # (Auto) 0.0 Abs Immat Gran (auto) 0.14 H Absolute Neuts (auto) 16.1 H Absolute Nucleated RBC 0.000 Nucleated RBC % (auto) 0.0 Hold Purple Top SEE NOTE O2 Saturation 94.0 ABG pH at Pt Temp 7.34 L ABG pCO2 at Pt Temp 32 ABG pO2 at Pt Temp 70 L ABG HCO3 17 L ABG Base Excess (Actual) -6.9 Anion Gap 16 Estim Creat Clear Calc 16.8 Estimated GFR 13 Fasting Glucose 138 H Estimat Average Glucose 100 Hemoglobin A1c % 5.1 Lactic Acid 1.5 Calcium 9.1 B-Natriuretic Peptide 14 Procalcitonin 0.40 Urine Color Urine Appearance Urine pH Ur Specific [place] Urine Protein Urine Glucose (UA) Urine Ketones Urine Blood Urine Nitrite Ur Leukocyte Esterase Urine RBC Urine WBC Ur Squamous Epith Cells Urine Bacteria Hyaline Casts Ur Random Sodium Urine Creatinine Influenza Type A (PCR) Influenza Type B (PCR) RSV RNA Qual (PCR) SARS-CoV-2 RNA (RT-PCR) 12/09/24 12/09/24 12:01 12:02 MCV MCH MCHC RDW Plt Count MPV Immature Gran % (Auto) Neut % (Auto) Lymph % (Auto) [place] % (Auto) Eos % (Auto) Baso % (Auto) Lymph # (Auto) [place] # (Auto) Eos # (Auto) Baso # (Auto) Abs Immat Gran (auto) Absolute Neuts (auto) Absolute Nucleated RBC Nucleated RBC % (auto) Hold Purple Top O2 Saturation ABG pH at Pt Temp ABG pCO2 at Pt Temp ABG pO2 at Pt Temp ABG HCO3 ABG Base Excess (Actual) Anion Gap Estim Creat Clear Calc Estimated GFR Fasting Glucose Estimat Average Glucose Hemoglobin A1c % Lactic Acid Calcium B-Natriuretic Peptide Procalcitonin Urine Color Yellow Urine Appearance Cloudy Urine pH 6.5 Ur Specific [place] 1.015 Urine Protein 300 (3+) H Urine Glucose (UA) 100 H Urine Ketones Negative Urine Blood Large (3+) H Urine Nitrite Negative Ur Leukocyte Esterase Small (1+) H Urine RBC >20 H Urine WBC >50 H Ur Squamous Epith Cells 6-10 Urine Bacteria None Seen Hyaline Casts 3-5 Ur Random Sodium 86.0 Urine Creatinine 62.95 Influenza Type A (PCR) NEGATIVE Influenza Type B (PCR) NEGATIVE RSV RNA Qual (PCR) NEGATIVE SARS-CoV-2 RNA (RT-PCR) NEGATIVE Imaging Radiologist's Impressions: Impressions Chest X-Ray 12/09/24 09:45 IMPRESSION: Limited examination due to low lung volumes. Left lower lobe atelectasis versus pneumonia. PA and lateral views with greater inspiratory effort would be helpful. Electronically signed by: Lex Burrell MD 12/09/2024 09:56 AM EDT RP Renal Ultrasound 12/09/24 10:17 IMPRESSION: Normal renal ultrasound. Incidental note made of ascites. Electronically signed by: Elías Simpson MD 12/09/2024 11:02 AM EDT RP Venous Duplex 12/09/24 10:24 IMPRESSION: No evidence of deep venous thrombosis involving the bilateral lower extremities. Electronically signed by: Elías Simpson MD 12/09/2024 10:52 AM EDT RP Assessment and Plan (1) Acute kidney injury: Status: Acute Plan 64yo F with IBS, GERD and recurrent sigmoid diverticulitis with history of IR-guided drainage of LLQ abscess who is POD2 from= elective hand-assisted laparoscopic sigmoid colectomy with colorectal anastomosis on 12/07/24; intraoperatively noted to have inflammation, phlegmon/abscess, and adhesions. Medicine consult requested for oliguria and worsening TAMERA; also noted to be dyspneic and tachycardic with abdominal distension. TAMERA - Nephrology consulted. Continue IV fluid resuscitation. FENa 3.6% suggestive of intrinsic renal/tubular injury. Landin for UOP + intra-abdominal pressure monitoring. Abdominal distension - Will place Landin and check intra-abdominal pressures. Stat CT A/P without contrast. Discussed with surgery team. Likely pneumonia - Also will obtain CT chest. Agree with piperacillin-tazobactam; BCx sent. Tachycardia - V/Q scan to r/o PE. VTE ppx - Start heparin once OK with surgery. Thank you for this consultation. We will continue to follow the patient while they are admitted to your service.
[2024-12-09] MEDS: Acetaminophen 1,000 MG/100 ML PIGGYBACK 400 MG IV (15:30)
[2024-12-09] MEDS: Lactated Ringers 500 ML 999 ML IV (17:36)
--- NOTE | 2024-12-09 18:43 | PC.NURSE ---
11:[address] Coelho regarding patient symptoms of shortness of breath and tachycardia. Pt was put on 2L nasal cannula with good effect, put on monitor with a sinus tach rhythm and a 1L LR blus was ordered
--- NOTE | 2024-12-09 18:45 | PC.NURSE ---
5:17p MD was notified of tele monitor reading sinus tach of 130-140.MD asked about ouptut, pt just had a 100ml void. MD ordered a 500ml bolus of LR
--- NOTE | 2024-12-09 20:40 | PC.NURSE ---
suárez cath was placed with no issues. functioning well.
[2024-12-10] MEDS: HYDROmorphone HCl 0.5 MG/0.5 ML SYRINGE IVPUSH ×3 (01:44→18:10)
[2024-12-10] MEDS: Piperacillin Sodium/Tazobactam 3.375 GM in 0.9 % Sodium Chloride 50 ML IV (01:53)
[2024-12-10] MEDS: Lactated Ringers 1,000 ML 125 ML IVCONT ×2 (01:53→10:37)
[2024-12-10 05:30] VITALS: BP 129/76; PULSE 106; RESP 20; TEMP 36.8; O2SAT 94
[2024-12-10 05:47] LABS: MANUAL DIFF FLAG NO
[2024-12-10 05:49] LABS: Basophils Percent Auto 0.2 % (0-2); Eosinophils Percent Auto 0.1 % (0-4); Imm Gran Abs Auto 0.04 X10*3/uL (0.00-0.03); Imm Gran Pct Auto 0.3 % (0.0-0.4); Lymphocytes Absolute Auto 1.4 X10*3/uL (1.2-4.9); Lymphocytes Percent Auto 8.8 % (20-40); Mean Corpuscular HGB Conc 33.3 g/dl (31.0-35.0); Mean Corpuscular Hemoglobin 28.4 pg (27.0-33.0); Mean Corpuscular Volume 85.1 fL (80.0-98.0); Mean Platelet Volume 9.2 fL (9.4-12.3); Monocytes Absolute Auto 0.7 X10*3/uL (0.1-1.2); Monocytes Percent Auto 4.5 % (2-11); Neutrophils Absolute Auto 13.7 x10*3/uL (2.0-8.3); Neutrophils Percent Auto 86.1 % (45-73); Platelet Count 218 X10*3/uL (160-400); Red Blood Count 4.23 X10*6/uL (4.20-5.50); Red Cell Distribution Width 14.8 % (11.0-16.0); White Blood Count 15.9 X10*3/uL (4.8-10.8)
[2024-12-10] MEDS: Omeprazole 40 MG CAPSULE.DR PO (05:54)
[2024-12-10 07:51] LABS: Hematocrit 35.5 % (37.0-47.0); Hemoglobin 12.1 g/dl (12.0-16.0); Mean Corpuscular HGB Conc 34.1 g/dl (31.0-35.0); Mean Corpuscular Hemoglobin 28.9 pg (27.0-33.0); Mean Corpuscular Volume 84.7 fL (80.0-98.0); Mean Platelet Volume 9.5 fL (9.4-12.3); Platelet Count 216 X10*3/uL (160-400); Red Blood Count 4.19 X10*6/uL (4.20-5.50); Red Cell Distribution Width 14.8 % (11.0-16.0); White Blood Count 15.9 X10*3/uL (4.8-10.8)
[2024-12-10 07:54] LABS: Anion Gap 15 (12-20); Blood Urea Nitrogen 33 mg/dL (9-16); Calcium 8.5 mg/dL (8.4-10.2); Carbon Dioxide 17 mmol/L (22-29); Chloride 106 mmol/L (96-108); Estimated Glomerular Filt Rate 12; Glucose Random 123 mg/dL (60-115); Potassium 4.8 mmol/L (3.3-5.1); Sodium 133 mmol/L (135-145)
[2024-12-10 08:00] VITALS: BP 128/69; PULSE 106; RESP 14; TEMP 37.2; O2SAT 94
[2024-12-10] MEDS: Loratadine 10 MG TABLET PO (09:08)
[2024-12-10] MEDS: oxyCODONE HCl Immed Release 5 MG TABLET PO (09:08)
[2024-12-10] MEDS: Piperacillin Sodium/Tazobactam 2.25 GM in 0.9 % Sodium Chloride 50 ML IV ×2 (10:03→18:12)
--- NOTE | 2024-12-10 10:11 | PC.NURSE ---
Penicillins listed as childhood allergy. Patient reports no issues with taking penicillins as an adult. Education provided regarding medications and allergies. Verbalizes understanding. Patient has been receiving IV Zosyn during this hospitalization without incident. IV Zosyn remains ordered. Administered by this RN. See MAR for details.
[2024-12-10] MEDS: Acetaminophen 1,000 MG/100 ML PIGGYBACK 400 MG IV ×2 (13:39→21:55)
[2024-12-10 14:00] VITALS: BP 127/71; PULSE 119; RESP 17; TEMP 37.2; O2SAT 92
--- NOTE | 2024-12-10 14:50 | P.PNIM_ITS ---
Subjective Subjective Date of Service: 12/10/24 Interval History: Being followed for TAMERA /status post abdominal surgery Feels better, no bowel movement, no flatus, no nausea no vomiting, requesting to advance diet Denies fever, no chills complaining of abdominal pain worse with coughing and movement. Landin catheter with clear yellow urine Review of Systems All other system reviewed and are negative Physical Exam 2 Vital Signs: Vital Signs: Last Vital Signs Temp 98.9 F 12/10/24 14:00 Pulse 119 H 12/10/24 14:00 Resp 17 12/10/24 14:00 BP 127/71 12/10/24 14:00 Pulse Ox 92 12/10/24 14:00 O2 Del Method Room Air 12/10/24 14:00 O2 Flow Rate 2 12/10/24 05:30 BMI result Body Mass Index 28.3 Const: Other: Gen: Awake alert in no acute distress HEENT: sclera anicteric, moist mucus membranes Neck: supple Lungs: diminished, no rhonchi Heart: regular, no murmurs Abd: distended, minimal tenderness at site of incision, bowel sounds audible, incision clean/dry/intact Ext: no edema Skin: warm/well-perfused Neuro: alert and oriented x3, no focal findings Psych: appropriate affect Objective Data Active Medications Dicyclomine HCl (Dicyclomine Hcl 10 Mg Capsule) 10 mg PO BID PRN PRN Reason: Abdominal Discomfort Hydromorphone HCl (Hydromorphone Hcl 0.5 Mg/0.5 Ml Syringe) 0.5 mg IVPUSH Q3H PRN; Protocol PRN Reason: Pain, Severe (Pain Scale 7-10) Last Admin: 12/10/24 10:45 Dose: 0.5 mg Documented By: DEX Acetaminophen (Ofirmev) 1,000 mg in 100 mls @ 400 mls/hr IV Q6H PRN PRN Reason: Pain, Mild (Pain Scale 1-3) Last Infusion: 12/10/24 14:09 Dose: Infused Documented By: DEX Lactated Ringer's (Lr) 1,000 mls @ 125 mls/hr IVCONT .Q8H [facility] Last Admin: 12/10/24 10:37 Dose: 125 mls/hr Documented By: DEX Piperacillin Sod/Tazobactam (Sod 2.25 gm/ Sodium Chloride) 50 mls @ 100 mls/hr IV Q8H [facility] Last Infusion: 12/10/24 10:39 Dose: Infused Documented By: DEX Loratadine (Loratadine 10 Mg Tablet) 10 mg PO DAILY [facility] Last Admin: 12/10/24 09:08 Dose: 10 mg Documented By: DEX Metoclopramide HCl (Metoclopramide Hcl 10 Mg/2 Ml Vial) 10 mg IVPUSH Q6H PRN PRN Reason: Nausea and Vomiting Last Admin: 12/07/24 21:23 Dose: 10 mg Documented By: ERIKA Omeprazole (Omeprazole 40 Mg Capsule.Dr) 40 mg PO DAILY@0630 [facility] Last Admin: 12/10/24 05:54 Dose: 40 mg Documented By: TANISHA Ondansetron HCl (Ondansetron Hcl 4 Mg/2 Ml Vial) 4 mg IVPUSH QID PRN PRN Reason: Nausea Last Admin: 12/09/24 12:44 Dose: 4 mg Documented By: FAZAL Oxycodone HCl (Oxycodone Hcl Immed Release 5 Mg Tablet) 5 mg PO Q6H PRN PRN Reason: Pain, Moderate(Pain Scale 4-6) Last Admin: 12/10/24 09:08 Dose: 5 mg Documented By: DEX Sodium Chloride (0.9 % Sodium Chloride Flush 3 Ml Syringe) 3 ml IVFLUSH QSHIFT [facility] Last Admin: 12/10/24 09:01 Dose: Not Given Documented By: DEX Non-Admin Reason: IV Running Zolpidem Tartrate (Zolpidem Tartrate 5 Mg Tablet) 5 mg PO BEDTIME PRN PRN Reason: Insomnia Last Admin: 12/08/24 21:09 Dose: 5 mg Documented By: KIA Labs 12/11/24 07:04 12/11/24 07:04 Labs: Laboratory Results - last 24 hr 12/09/24 12/09/24 12/09/24 21:06 21:06 21:06 MCV 85.1 84.7 MCH 28.4 28.9 MCHC 33.3 RDW Plt Count MPV Immature Gran % (Auto) Neut % (Auto) Lymph % (Auto) Nance % (Auto) Eos % (Auto) Baso % (Auto) Lymph # (Auto) Nance # (Auto) Eos # (Auto) Baso # (Auto) Abs Immat Gran (auto) Absolute Neuts (auto) Absolute Nucleated RBC Nucleated RBC % (auto) Hold Purple Top Anion Gap Estim Creat Clear Calc Estimated GFR Random Glucose Calcium Hold Yellow Top 12/09/24 12/09/24 12/09/24 21:06 21:06 21:06 MCV MCH MCHC 34.1 RDW 14.8 14.8 Plt Count 218 216 MPV 9.2 L Immature Gran % (Auto) Neut % (Auto) Lymph % (Auto) Nance % (Auto) Eos % (Auto) Baso % (Auto) Lymph # (Auto) Nance # (Auto) Eos # (Auto) Baso # (Auto) Abs Immat Gran (auto) Absolute Neuts (auto) Absolute Nucleated RBC Nucleated RBC % (auto) Hold Purple Top Anion Gap Estim Creat Clear Calc Estimated GFR Random Glucose Calcium Hold Yellow Top 12/09/24 12/09/24 12/09/24 21:06 21:06 21:06 MCV MCH MCHC RDW Plt Count MPV 9.5 Immature Gran % (Auto) 0.3 Neut % (Auto) 86.1 H Lymph % (Auto) 8.8 L Nance % (Auto) 4.5 Eos % (Auto) 0.1 Baso % (Auto) 0.2 Lymph # (Auto) 1.4 Nance # (Auto) 0.7 Eos # (Auto) 0.0 Baso # (Auto) 0.0 Abs Immat Gran (auto) 0.04 H Absolute Neuts (auto) 13.7 H Absolute Nucleated RBC 0.000 0.000 Nucleated RBC % (auto) 0.0 0.0 Hold Purple Top SEE NOTE Anion Gap Estim Creat Clear Calc Estimated GFR Random Glucose Calcium Hold Yellow Top 12/09/24 21:53 MCV MCH MCHC RDW Plt Count MPV Immature Gran % (Auto) Neut % (Auto) Lymph % (Auto) Nance % (Auto) Eos % (Auto) Baso % (Auto) Lymph # (Auto) Nance # (Auto) Eos # (Auto) Baso # (Auto) Abs Immat Gran (auto) Absolute Neuts (auto) Absolute Nucleated RBC Nucleated RBC % (auto) Hold Purple Top Anion Gap 15 Estim Creat Clear Calc 15.0 Estimated GFR 12 Random Glucose 123 H Calcium 8.5 D Hold Yellow Top See Note Assessment and Plan (1) Acute kidney injury: Status: Acute (2) S/P colon resection: Status: Acute (3) Pneumonia: Status: Acute Plan 64yo F with IBS, GERD and recurrent sigmoid diverticulitis with history of IR- guided drainage of LLQ abscess who is POD2 from= elective hand-assisted laparoscopic sigmoid colectomy with colorectal anastomosis on 12/07/24; intraoperatively noted to have inflammation, phlegmon/abscess, and adhesions. Medicine consult requested for oliguria and worsening TAMERA; also noted to be dyspneic and tachycardic with abdominal distension. Status post laparoscopic sigmoid colectomy with colorectal anastomosis on 12/07 Noted to have postoperative abdominal distention Tolerating clear liquid diet, no flatus, no bowel movement Abdominal pain and distention improving Case discussed with general surgery ,advance diet to full liquid/add supplements CT abdomen and pelvis showed body wall edema, moderate ascites, as per General surgery, no bleeding or leak, could be irrigation fluid. Further treatment plan as per General surgery TAMERA Creatinine normalized Continue Landin catheter and decreased ivf FENa 3.6% suggestive of intrinsic renal/tubular injury,no hydro on imaging cont. Landin for UOP nephro following Tachycardia and shortness of breath - likely due to pneumonia /pain -V/Q scan showed normal perfusion exam with no suspicion for PE -CT chest showed small bilateral pleural effusion and adjacent pneumonia Continue IV Zosyn , shortness of breath and tachycardia improved - add IS/oob to chair VTE ppx compression boots, resume anticoagulation as per surgery Disposition as per General surgery Quality Stroke Does the patient have a stroke diagnosis?: No VTE Prior VTE?: No VTE Risk Level:: Surgical - moderate VTE Device Contraindication: N/A - Device Ordered VTE Drug Contraindication: Patient Refused
[2024-12-10 15:19] LABS: Hemoglobin 11.8 g/dl (12.0-16.0); Mean Corpuscular HGB Conc 34.7 g/dl (31.0-35.0); Mean Corpuscular Hemoglobin 28.8 pg (27.0-33.0); Mean Corpuscular Volume 82.9 fL (80.0-98.0); Platelet Count 223 X10*3/uL (160-400); Red Cell Distribution Width 14.6 % (11.0-16.0); White Blood Count 11.2 X10*3/uL (4.8-10.8)
--- NOTE | 2024-12-10 15:26 | P.PNGS_ITS ---
Subjective Subjective Date of Service: 12/10/24 Interval history: Patient was states she feels much better today. Sitting up in chair. She is able to do incentive spirometry quite well. No gas or flatus yet. Landin catheter in with prodigious urine output. Patient was not want Landin removed yet. Physical Exam 2 Vital Signs: Vital Signs: Last Vital Signs Temp 98.9 F 12/10/24 14:00 Pulse 119 H 12/10/24 14:00 Resp 17 12/10/24 14:00 BP 127/71 12/10/24 14:00 Pulse Ox 92 12/10/24 14:00 O2 Del Method Room Air 12/10/24 14:00 O2 Flow Rate 2 12/10/24 05:30 BMI result Body Mass Index 28.3 GI: Other: Abdomen is soft. All dressings clean dry and intact. Objective Data Active Medications Dicyclomine HCl (Dicyclomine Hcl 10 Mg Capsule) 10 mg PO BID PRN PRN Reason: Abdominal Discomfort Hydromorphone HCl (Hydromorphone Hcl 0.5 Mg/0.5 Ml Syringe) 0.5 mg IVPUSH Q3H PRN; Protocol PRN Reason: Pain, Severe (Pain Scale 7-10) Last Admin: 12/10/24 10:45 Dose: 0.5 mg Documented By: DEX Acetaminophen (Ofirmev) 1,000 mg in 100 mls @ 400 mls/hr IV Q6H PRN PRN Reason: Pain, Mild (Pain Scale 1-3) Last Infusion: 12/10/24 14:09 Dose: Infused Documented By: DEX Lactated Ringer's (Lr) 1,000 mls @ 125 mls/hr IVCONT .Q8H [facility] Last Admin: 12/10/24 10:37 Dose: 125 mls/hr Documented By: DEX Piperacillin Sod/Tazobactam (Sod 2.25 gm/ Sodium Chloride) 50 mls @ 100 mls/hr IV Q8H [facility] Last Infusion: 12/10/24 10:39 Dose: Infused Documented By: DEX Loratadine (Loratadine 10 Mg Tablet) 10 mg PO DAILY [facility] Last Admin: 12/10/24 09:08 Dose: 10 mg Documented By: DEX Metoclopramide HCl (Metoclopramide Hcl 10 Mg/2 Ml Vial) 10 mg IVPUSH Q6H PRN PRN Reason: Nausea and Vomiting Last Admin: 12/07/24 21:23 Dose: 10 mg Documented By: ERIKA Omeprazole (Omeprazole 40 Mg Capsule.Dr) 40 mg PO DAILY@0630 [facility] Last Admin: 12/10/24 05:54 Dose: 40 mg Documented By: TANISHA Ondansetron HCl (Ondansetron Hcl 4 Mg/2 Ml Vial) 4 mg IVPUSH QID PRN PRN Reason: Nausea Last Admin: 12/09/24 12:44 Dose: 4 mg Documented By: FAZAL Oxycodone HCl (Oxycodone Hcl Immed Release 5 Mg Tablet) 5 mg PO Q6H PRN PRN Reason: Pain, Moderate(Pain Scale 4-6) Last Admin: 12/10/24 09:08 Dose: 5 mg Documented By: DEX Sodium Chloride (0.9 % Sodium Chloride Flush 3 Ml Syringe) 3 ml IVFLUSH [facility] Last Admin: 12/10/24 09:01 Dose: Not Given Documented By: DEX Non-Admin Reason: IV Running Zolpidem Tartrate (Zolpidem Tartrate 5 Mg Tablet) 5 mg PO BEDTIME PRN PRN Reason: Insomnia Last Admin: 12/08/24 21:09 Dose: 5 mg Documented By: LYSZ Labs 12/10/24 14:44 12/09/24 21:53 Labs: Laboratory Results - last 24 hr 12/09/24 12/09/24 12/09/24 21:06 21:06 21:06 MCV 85.1 84.7 MCH 28.4 28.9 MCHC 33.3 RDW Plt Count MPV Immature Gran % (Auto) Neut % (Auto) Lymph % (Auto) Evans % (Auto) Eos % (Auto) Baso % (Auto) Lymph # (Auto) Evans # (Auto) Eos # (Auto) Baso # (Auto) Abs Immat Gran (auto) Absolute Neuts (auto) Absolute Nucleated RBC Nucleated RBC % (auto) Hold Purple Top Anion Gap Estim Creat Clear Calc Estimated GFR Random Glucose Calcium Hold Yellow Top 12/09/24 12/09/24 12/09/24 21:06 21:06 21:06 MCV MCH MCHC 34.1 RDW 14.8 14.8 Plt Count 218 216 MPV 9.2 L Immature Gran % (Auto) Neut % (Auto) Lymph % (Auto) Evans % (Auto) Eos % (Auto) Baso % (Auto) Lymph # (Auto) Evans # (Auto) Eos # (Auto) Baso # (Auto) Abs Immat Gran (auto) Absolute Neuts (auto) Absolute Nucleated RBC Nucleated RBC % (auto) Hold Purple Top Anion Gap Estim Creat Clear Calc Estimated GFR Random Glucose Calcium Hold Yellow Top 12/09/24 12/09/24 12/09/24 21:06 21:06 21:06 MCV MCH MCHC RDW Plt Count MPV 9.5 Immature Gran % (Auto) 0.3 Neut % (Auto) 86.1 H Lymph % (Auto) 8.8 L Evans % (Auto) 4.5 Eos % (Auto) 0.1 Baso % (Auto) 0.2 Lymph # (Auto) 1.4 Evans # (Auto) 0.7 Eos # (Auto) 0.0 Baso # (Auto) 0.0 Abs Immat Gran (auto) 0.04 H Absolute Neuts (auto) 13.7 H Absolute Nucleated RBC 0.000 0.000 Nucleated RBC % (auto) 0.0 0.0 Hold Purple Top SEE NOTE Anion Gap Estim Creat Clear Calc Estimated GFR Random Glucose Calcium Hold Yellow Top 12/09/24 12/10/24 21:53 14:44 MCV 82.9 MCH 28.8 MCHC 34.7 RDW 14.6 Plt Count 223 MPV 9.0 L Immature Gran % (Auto) Neut % (Auto) Lymph % (Auto) Evans % (Auto) Eos % (Auto) Baso % (Auto) Lymph # (Auto) Evans # (Auto) Eos # (Auto) Baso # (Auto) Abs Immat Gran (auto) Absolute Neuts (auto) Absolute Nucleated RBC 0.000 Nucleated RBC % (auto) 0.0 Hold Purple Top Anion Gap 15 Estim Creat Clear Calc 15.0 Estimated GFR 12 Random Glucose 123 H Calcium 8.5 D Hold Yellow Top See Note Procedures Date of Service Date of Service: 12/10/24 Progress Note: A&P Assessment and plan (1) S/P colon resection: Status: Acute Plan Encourage out of bed/ambulate, incentive spirometry, p.o. liquids, awaiting chemistries/labs, follow I's and O's Time Spent With Patient Time: Total time managing care of this patient today ____ minutes. Quality Stroke Does the patient have a stroke diagnosis?: No VTE Prior VTE?: No VTE Risk Level:: Surgical - moderate VTE Device Contraindication: N/A - Device Ordered VTE Drug Contraindication: Patient Refused
[2024-12-10 15:34] LABS: Anion Gap 12 (12-20); Blood Urea Nitrogen 10 mg/dL (9-16); Calcium 8.8 mg/dL (8.4-10.2); Carbon Dioxide 24 mmol/L (22-29); Chloride 108 mmol/L (96-108); Creatinine Clr Calc Pharmacy 85.7; Estimated Glomerular Filt Rate > 60; Glucose Random 134 mg/dL (60-115); Potassium 3.8 mmol/L (3.3-5.1); Sodium 140 mmol/L (135-145)
[2024-12-10 16:26] VITALS: BP 152/75; PULSE 99; RESP 18; TEMP 37.5; O2SAT 95
[2024-12-10] MEDS: Zolpidem Tartrate 5 MG TABLET PO (21:53)
[2024-12-10 22:00] VITALS: BP 135/67; PULSE 90; RESP 16; TEMP 37.1; O2SAT 94
[2024-12-11] MEDS: ondansetron HCL 4 MG/2 ML VIAL IVPUSH ×3 (00:19→15:50)
[2024-12-11] MEDS: HYDROmorphone HCl 0.5 MG/0.5 ML SYRINGE IVPUSH ×4 (00:19→20:54)
[2024-12-11] MEDS: Lactated Ringers 1,000 ML 50 ML IVCONT (01:36)
[2024-12-11] MEDS: Piperacillin Sodium/Tazobactam 2.25 GM in 0.9 % Sodium Chloride 50 ML IV (01:43)
[2024-12-11 05:51] VITALS: BP 130/81; PULSE 91; RESP 18; TEMP 36.9; O2SAT 94
[2024-12-11] MEDS: Omeprazole 40 MG CAPSULE.DR PO (05:54)
[2024-12-11 07:30] LABS: Hematocrit 32.1 % (37.0-47.0); Hemoglobin 10.8 g/dl (12.0-16.0); Mean Corpuscular HGB Conc 33.6 g/dl (31.0-35.0); Mean Corpuscular Hemoglobin 28.5 pg (27.0-33.0); Mean Corpuscular Volume 84.7 fL (80.0-98.0); Mean Platelet Volume 8.8 fL (9.4-12.3); Platelet Count 200 X10*3/uL (160-400); Red Blood Count 3.79 X10*6/uL (4.20-5.50); Red Cell Distribution Width 14.5 % (11.0-16.0); White Blood Count 7.8 X10*3/uL (4.8-10.8)
[2024-12-11 07:52] LABS: Anion Gap 10 (12-20); Blood Urea Nitrogen 7 mg/dL (9-16); Calcium 8.3 mg/dL (8.4-10.2); Carbon Dioxide 27 mmol/L (22-29); Chloride 108 mmol/L (96-108); Creatinine Clr Calc Pharmacy 103.7; Estimated Glomerular Filt Rate > 60; Glucose Random 112 mg/dL (60-115); Potassium 3.6 mmol/L (3.3-5.1); Sodium 141 mmol/L (135-145)
[2024-12-11 08:00] VITALS: BP 121/66; PULSE 96; RESP 14; TEMP 37.4; O2SAT 93
--- NOTE | 2024-12-11 09:52 | P.PNIM_ITS ---
Subjective Subjective Date of Service: 12/11/24 Interval History: Feeling significantly better had 2 bowel movements mushy, denies nausea, no vomiting, persistent abdominal pain with movement has been ambulating to bathroom, tolerating full liquid diet. Landin catheter with clear urine No acute issues overnight. Review of Systems All other system reviewed and are negative Physical Exam 2 Vital Signs: Vital Signs: Last Vital Signs Temp 99.4 F 12/11/24 08:00 Pulse 96 12/11/24 08:00 Resp 14 12/11/24 08:00 BP 121/66 12/11/24 08:00 Pulse Ox 93 12/11/24 08:00 O2 Del Method Room Air 12/11/24 08:00 O2 Flow Rate 2 12/10/24 05:30 BMI result Body Mass Index 28.3 Const: Other: Gen: Awake alert in no acute distress HEENT: sclera anicteric, moist mucus membranes Neck: supple Lungs: diminished, no rhonchi Heart: regular, no murmurs Abd: less distended, minimal tenderness at site of incision, bowel sounds audible, incision clean/dry/intact Ext: no edema Skin: warm/well-perfused Neuro: alert and oriented x3, no focal findings Psych: appropriate affect Objective Data Active Medications Dicyclomine HCl (Dicyclomine Hcl 10 Mg Capsule) 10 mg PO BID PRN PRN Reason: Abdominal Discomfort Hydromorphone HCl (Hydromorphone Hcl 0.5 Mg/0.5 Ml Syringe) 0.5 mg IVPUSH Q3H PRN; Protocol PRN Reason: Pain, Severe (Pain Scale 7-10) Last Admin: 12/11/24 06:15 Dose: 0.5 mg Documented By: TANISHA Acetaminophen ([facility]) 1,000 mg in 100 mls @ 400 mls/hr IV Q6H PRN PRN Reason: Pain, Mild (Pain Scale 1-3) Last Infusion: 12/10/24 22:25 Dose: Infused Documented By: TANISHA Piperacillin Sod/Tazobactam (Sod 3.375 gm/ Sodium Chloride) 50 mls @ 100 mls/hr IV Q6H [facility] Loratadine (Loratadine 10 Mg Tablet) 10 mg PO DAILY [facility] Last Admin: 12/10/24 09:08 Dose: 10 mg Documented By: DEX Metoclopramide HCl (Metoclopramide Hcl 10 Mg/2 Ml Vial) 10 mg IVPUSH Q6H PRN PRN Reason: Nausea and Vomiting Last Admin: 12/07/24 21:23 Dose: 10 mg Documented By: ERIKA Omeprazole (Omeprazole 40 Mg Capsule.Dr) 40 mg PO DAILY@0630 [facility] Last Admin: 12/11/24 05:54 Dose: 40 mg Documented By: TANISHA Ondansetron HCl (Ondansetron Hcl 4 Mg/2 Ml Vial) 4 mg IVPUSH QID PRN PRN Reason: Nausea Last Admin: 12/11/24 06:15 Dose: 4 mg Documented By: TANISHA Oxycodone HCl (Oxycodone Hcl Immed Release 5 Mg Tablet) 5 mg PO Q6H PRN PRN Reason: Pain, Moderate(Pain Scale 4-6) Last Admin: 12/10/24 09:08 Dose: 5 mg Documented By: DEX Sodium Chloride (0.9 % Sodium Chloride Flush 3 Ml Syringe) 3 ml IVFLUSH [facility] Last Admin: 12/11/24 08:05 Dose: Not Given Documented By: DEX Non-Admin Reason: IV Running Zolpidem Tartrate (Zolpidem Tartrate 5 Mg Tablet) 5 mg PO BEDTIME PRN PRN Reason: Insomnia Last Admin: 12/10/24 21:53 Dose: 5 mg Documented By: TANISHA Labs 12/11/24 07:04 12/11/24 07:04 Labs: Laboratory Results - last 24 hr 12/10/24 12/11/24 14:44 07:04 MCV 82.9 84.7 MCH 28.8 28.5 MCHC 34.7 33.6 RDW 14.6 14.5 Plt Count 223 200 MPV 9.0 L 8.8 L Absolute Nucleated RBC 0.000 0.000 Nucleated RBC % (auto) 0.0 0.0 Anion Gap 12 10 L Estim Creat Clear Calc 85.7 103.7 Estimated GFR > 60 > 60 Random Glucose 134 H 112 Calcium 8.8 8.3 L Microbiology Microbiology Results: Microbiology 12/09/24 21:06 Blood Culture - Preliminary Blood - Venous No growth after 24 hours. 12/09/24 13:52 Blood Culture - Preliminary Blood - Venous No growth after 24 hours. Assessment and Plan (1) Pneumonia: Status: Acute (2) Acute kidney injury: Status: Acute (3) S/P colon resection: Status: Acute Plan 64yo F with IBS, GERD and recurrent sigmoid diverticulitis with history of IR- guided drainage of LLQ abscess who is POD2 from= elective hand-assisted laparoscopic sigmoid colectomy with colorectal anastomosis on 12/07/24; intraoperatively noted to have inflammation, phlegmon/abscess, and adhesions. Medicine consult requested for oliguria and worsening TAMERA; also noted to be dyspneic and tachycardic with abdominal distension. Status post laparoscopic sigmoid colectomy with colorectal anastomosis on 12/07 postoperative abdominal distention improving Tolerating full liquid diet, had 2 bowel movements Will advance diet to regular, low-fiber, restricted lactose CT abdomen and pelvis showed body wall edema, moderate ascites, as per General surgery, no bleeding or leak, could be irrigation fluid. Further treatment plan as per General surgery Recommend ambulation as tolerated TAMERA Creatinine normalized dc Landin catheter and dc ivf FENa 3.6% suggestive of intrinsic renal/tubular injury,no hydro on imaging Tachycardia and shortness of breath - likely due to pneumonia /pain -no fevers, WBC normalized, blood cultures x2 negative -V/Q scan showed normal perfusion exam with no suspicion for PE -CT chest showed small bilateral pleural effusion and adjacent pneumonia on IV Zosyn started 12/09 , shortness of breath and tachycardia resolved, transitioned to by mouth antibiotic by am - IS/oob to chair and ambulation as tolerated VTE ppx compression boots, resume anticoagulation as per surgery Disposition as per General surgery Quality Stroke Does the patient have a stroke diagnosis?: No VTE Prior VTE?: No VTE Risk Level:: Surgical - moderate VTE Device Contraindication: N/A - Device Ordered VTE Drug Contraindication: Patient Refused
[2024-12-11] MEDS: Piperacillin Sodium/Tazobactam 3.375 GM in 0.9 % Sodium Chloride 50 ML IV ×3 (10:01→21:00)
[2024-12-11] MEDS: Loratadine 10 MG TABLET PO (10:02)
[2024-12-11] MEDS: Acetaminophen 1,000 MG/100 ML PIGGYBACK 400 MG IV (11:16)
--- NOTE | 2024-12-11 13:36 | PC.NURSE ---
Indwelling urinary catheter removed today at 1010. Vanessa-care performed. Education provided on voiding trial. Patient verbalized understanding. Due to void by 1610. Patient voided in commode at 1255 with a mix of stool for a total of 400mL of output. Bladder scanned for 0mL. Patient reports feeling better.
[2024-12-11 14:00] VITALS: BP 128/70; PULSE 109; RESP 18; TEMP 36.8; O2SAT 96
--- NOTE | 2024-12-11 15:24 | P.PNGS_ITS ---
Subjective Subjective Date of Service: 12/11/24 Interval history: Patient continues steady improvement. Passing flatus and some loose stool. She is on clear liquids and does not wished to be advanced just yet. IV Hep-Lock. Labs all improved. Good urine output Physical Exam 2 Vital Signs: Vital Signs: Last Vital Signs Temp 98.3 F 12/11/24 14:00 Pulse 109 H 12/11/24 14:00 Resp 18 12/11/24 14:00 BP 128/70 12/11/24 14:00 Pulse Ox 96 12/11/24 14:00 O2 Del Method Room Air 12/11/24 14:00 O2 Flow Rate 2 12/10/24 05:30 BMI result Body Mass Index 28.3 GI: Other: Abdomen is soft. All wounds clean dry and intact. Objective Data Active Medications Dicyclomine HCl (Dicyclomine Hcl 10 Mg Capsule) 10 mg PO BID PRN PRN Reason: Abdominal Discomfort Hydromorphone HCl (Hydromorphone Hcl 0.5 Mg/0.5 Ml Syringe) 0.5 mg IVPUSH Q3H PRN; Protocol PRN Reason: Pain, Severe (Pain Scale 7-10) Last Admin: 12/11/24 06:15 Dose: 0.5 mg Documented By: TANISHA Acetaminophen (Ofirmev) 1,000 mg in 100 mls @ 400 mls/hr IV Q6H PRN PRN Reason: Pain, Mild (Pain Scale 1-3) Last Infusion: 12/11/24 11:58 Dose: Infused Documented By: KAITLIN Piperacillin Sod/Tazobactam (Sod 3.375 gm/ Sodium Chloride) 50 mls @ 100 mls/hr IV Q6H [facility] Last Infusion: 12/11/24 11:19 Dose: Infused Documented By: DEX Loratadine (Loratadine 10 Mg Tablet) 10 mg PO DAILY [facility] Last Admin: 12/11/24 10:02 Dose: 10 mg Documented By: DEX Metoclopramide HCl (Metoclopramide Hcl 10 Mg/2 Ml Vial) 10 mg IVPUSH Q6H PRN PRN Reason: Nausea and Vomiting Last Admin: 12/07/24 21:23 Dose: 10 mg Documented By: ERIKA Omeprazole (Omeprazole 40 Mg Capsule.) 40 mg PO DAILY@0630 [facility] Last Admin: 12/11/24 05:54 Dose: 40 mg Documented By: TANIHSA Ondansetron HCl (Ondansetron Hcl 4 Mg/2 Ml Vial) 4 mg IVPUSH QID PRN PRN Reason: Nausea Last Admin: 12/11/24 06:15 Dose: 4 mg Documented By: TANISHA Oxycodone HCl (Oxycodone Hcl Immed Release 5 Mg Tablet) 5 mg PO Q6H PRN PRN Reason: Pain, Moderate(Pain Scale 4-6) Last Admin: 12/10/24 09:08 Dose: 5 mg Documented By: DEX Sodium Chloride (0.9 % Sodium Chloride Flush 3 Ml Syringe) 3 ml IVFLUSH QSHIFT [facility] Last Admin: 12/11/24 08:05 Dose: Not Given Documented By: DEX Non-Admin Reason: IV Running Zolpidem Tartrate (Zolpidem Tartrate 5 Mg Tablet) 5 mg PO BEDTIME PRN PRN Reason: Insomnia Last Admin: 12/10/24 21:53 Dose: 5 mg Documented By: TANISHA Labs 12/11/24 07:04 12/11/24 07:04 Labs: Laboratory Results - last 24 hr 12/10/24 12/11/24 14:44 07:04 MCV 84.7 MCH 28.5 MCHC 33.6 RDW 14.5 Plt Count 200 MPV 8.8 L Absolute Nucleated RBC 0.000 Nucleated RBC % (auto) 0.0 Anion Gap 12 10 L Estim Creat Clear Calc 85.7 103.7 Estimated GFR > 60 > 60 Random Glucose 134 H 112 Calcium 8.8 8.3 L Microbiology Microbiology Results: Microbiology 12/09/24 21:06 Blood Culture - Preliminary Blood - Venous No growth after 24 hours. 12/09/24 13:52 Blood Culture - Preliminary Blood - Venous No growth after 24 hours. Procedures Date of Service Date of Service: 12/11/24 Progress Note: A&P Assessment and plan (1) S/P colon resection: Status: Acute Plan Patient demonstrates continued improved convalescence. Encourage out of bed, incentive spirometry, p.o. as tolerated. Time Spent With Patient Time: Total time managing care of this patient today ____ minutes. Quality Stroke Does the patient have a stroke diagnosis?: No VTE Prior VTE?: No VTE Risk Level:: Surgical - moderate VTE Device Contraindication: N/A - Device Ordered VTE Drug Contraindication: Patient Refused
[2024-12-11 15:34] VITALS: BP 114/89; PULSE 98; RESP 16; TEMP 37.7; O2SAT 93
[2024-12-11] MEDS: 0.9 % Sodium Chloride Flush 3 ML SYRINGE IVFLUSH ×2 (15:59→21:04)
--- NOTE | 2024-12-11 17:54 | PC.NURSE ---
Approximately 1430- patient voided into toilet, and unable to measure output this void. Patient had been previously using commode. Bladder scanned for 0mL. No complaints with voiding.
[2024-12-11] MEDS: Metoclopramide HCl 10 MG/2 ML VIAL IVPUSH (20:55)
[2024-12-11 21:38] VITALS: BP 126/68; PULSE 93; RESP 18; TEMP 37.2; O2SAT 95
[2024-12-12] MEDS: HYDROmorphone HCl 0.5 MG/0.5 ML SYRINGE IVPUSH ×2 (02:34→08:30)
[2024-12-12] MEDS: ondansetron HCL 4 MG/2 ML VIAL IVPUSH ×2 (02:34→11:05)
[2024-12-12] MEDS: Piperacillin Sodium/Tazobactam 3.375 GM in 0.9 % Sodium Chloride 50 ML IV ×2 (04:35→09:08)
[2024-12-12] MEDS: Omeprazole 40 MG CAPSULE.DR PO (05:05)
[2024-12-12 06:00] VITALS: BP 129/72; PULSE 67; RESP 18; TEMP 36.6; O2SAT 94
--- NOTE | 2024-12-12 07:18 | PM.PNGS ---
Subjective Subjective Date of Service: 12/13/24 Interval history: Beti is feeling well today. She feels some abdominal pain that is manageable. She is ambulated independently with no falls. Tolerating po liquids and some solids though she does report little appetite. No episodes of emesis. No dyspnea, chest pain. Suárez removed, able to ambulate to restroom. Passing clear urine, flatus and last BM this am. Physical Exam Vital Signs: Vital Signs: Last Vital Signs Temp 99.0 F 12/11/24 21:38 Pulse 93 12/11/24 21:38 Resp 18 12/11/24 21:38 BP 126/68 12/11/24 21:38 Pulse Ox 95 12/11/24 21:38 O2 Del Method Room Air 12/11/24 21:38 O2 Flow Rate 2 12/10/24 05:30 BMI result Body Mass Index 28.3 Const: General: comfortable, no acute distress and alert Orientation/consciousness: patient oriented x3 HEENT: Head: Yes normal to inspection and Yes atraumatic Eyes: Conjunctivae: conjunctivae normal Sclerae: sclerae normal Pupils: Equal, round and reactive pupils present Chest: Chest palpation & inspection: normal inspection of the chest Resp: Effort & Inspection: normal respiratory effort and able to speak in complete sentences Auscultation: clear to auscultation bilaterally Cardio: Rate: regular rate Rhythm: regular rhythm Heart sounds: S1 normal heart sound present and S2 normal heart sound present GI: Other: Surgical abdominal incisions healing well with no bandages present, no bleeding, no exudate, no erythema or induration. Inspection: Yes incision Auscultation: normal bowel sounds Skin: General skin exam: no rashes or lesions noted Neuro: General: patient oriented x3 Cranial nerves: Yes Equal, round and reactive pupils present Extrem: Right lower extremity: normal to inspection Left lower extremity: normal to inspection Objective Data Active Medications Dicyclomine HCl (Dicyclomine Hcl 10 Mg Capsule) 10 mg PO BID PRN PRN Reason: Abdominal Discomfort Hydromorphone HCl (Hydromorphone Hcl 0.5 Mg/0.5 Ml Syringe) 0.5 mg IVPUSH Q3H PRN; Protocol PRN Reason: Pain, Severe (Pain Scale 7-10) Last Admin: 12/12/24 02:34 Dose: 0.5 mg Documented By: TANISHA Acetaminophen ([facility]) 1,000 mg in 100 mls @ 400 mls/hr IV Q6H PRN PRN Reason: Pain, Mild (Pain Scale 1-3) Last Infusion: 12/11/24 11:58 Dose: Infused Documented By: KAITLIN Piperacillin Sod/Tazobactam (Sod 3.375 gm/ Sodium Chloride) 50 mls @ 100 mls/hr IV Q6H [facility] Last Infusion: 12/12/24 05:10 Dose: Infused Documented By: TANISHA Loratadine (Loratadine 10 Mg Tablet) 10 mg PO DAILY [facility] Last Admin: 12/11/24 10:02 Dose: 10 mg Documented By: DEX Metoclopramide HCl (Metoclopramide Hcl 10 Mg/2 Ml Vial) 10 mg IVPUSH Q6H PRN PRN Reason: Nausea and Vomiting Last Admin: 12/11/24 20:55 Dose: 10 mg Documented By: TANISHA Omeprazole (Omeprazole 40 Mg Capsule.Dr) 40 mg PO DAILY@0630 [facility] Last Admin: 12/12/24 05:05 Dose: 40 mg Documented By: TANISHA Ondansetron HCl (Ondansetron Hcl 4 Mg/2 Ml Vial) 4 mg IVPUSH QID PRN PRN Reason: Nausea Last Admin: 12/12/24 02:34 Dose: 4 mg Documented By: TANISHA Oxycodone HCl (Oxycodone Hcl Immed Release 5 Mg Tablet) 5 mg PO Q6H PRN PRN Reason: Pain, Moderate(Pain Scale 4-6) Last Admin: 12/10/24 09:08 Dose: 5 mg Documented By: DEX Sodium Chloride (0.9 % Sodium Chloride Flush 3 Ml Syringe) [address] [facility] Last Admin: 12/11/24 21:04 Dose: 3 ml Documented By: TANISHA Zolpidem Tartrate (Zolpidem Tartrate 5 Mg Tablet) 5 mg PO BEDTIME PRN PRN Reason: Insomnia Last Admin: 12/10/24 21:53 Dose: 5 mg Documented By: TANISHA Labs 12/11/24 07:04 12/11/24 07:04 Labs: Laboratory Results - last 24 hr 12/11/24 07:04 MCV 84.7 MCH 28.5 MCHC 33.6 RDW 14.5 Plt Count 200 MPV 8.8 L Absolute Nucleated RBC 0.000 Nucleated RBC % (auto) 0.0 Anion Gap 10 L Estim Creat Clear Calc 103.7 Estimated GFR > 60 Random Glucose 112 Calcium 8.3 L Microbiology Microbiology Results: Microbiology 12/09/24 21:06 Blood Culture - Preliminary Blood - Venous No growth after 48 hours. 12/09/24 13:52 Blood Culture - Preliminary Blood - Venous No growth after 48 hours. Procedures Date of Service Date of Service: 12/13/24 Progress Note: A&P Assessment and plan Plan Beti is POD 5 from laproscopic assisted sigmoid resection with subsequent anastamosis. She is ambulating well, with no concerning signs at this moment. She is tolerating small po diet. S/p colon resection -diet progressing well, ambulating well, incisions clear. -mild anemia with H&H trending down. Will watch I&Os. Not acutely concerning for bleed at this time, but will continue to monitor intake. TAMERA (resolved) BUN Cr returned to baseline. Voiding clear urine independently, s/p suárez removal. Pain Management Continues to require pain regimen. No concerning signs on exam. Davidson Mckeon, MS3 Time Spent With Patient Time: Total time managing care of this patient today ____ minutes. Quality Stroke Does the patient have a stroke diagnosis?: No VTE Prior VTE?: No VTE Risk Level:: Surgical - moderate VTE Device Contraindication: N/A - Device Ordered VTE Drug Contraindication: Patient Refused
[2024-12-12] MEDS: Metoclopramide HCl 10 MG/2 ML VIAL IVPUSH ×2 (08:27→20:08)
[2024-12-12] MEDS: 0.9 % Sodium Chloride Flush 3 ML SYRINGE IVFLUSH ×3 (08:28→20:11)
[2024-12-12 08:30] VITALS: RESP 18
[2024-12-12] MEDS: Loratadine 10 MG TABLET PO (08:31)
--- NOTE | 2024-12-12 09:51 | P.PNIM_ITS ---
Subjective Subjective Date of Service: 12/12/24 Interval History: feels well; ambulating, tolerating diet, having BMs; pain controlled; no dyspnea or cough Review of Systems Review of Systems: Yes all other systems are reviewed and are negative Physical Exam 2 Vital Signs: Vital Signs: Last Vital Signs Temp 97.9 F 12/12/24 06:00 Pulse 67 12/12/24 06:00 Resp 18 12/12/24 08:30 BP 129/72 12/12/24 06:00 Pulse Ox 94 12/12/24 06:00 O2 Del Method Room Air 12/12/24 06:00 O2 Flow Rate 2 12/10/24 05:30 BMI result Body Mass Index 28.3 Gen: in no acute distress HEENT: sclera anicteric, moist mucus membranes Neck: supple Lungs: clear to auscultation bilaterally Heart: regular rate and rhythm, no murmurs Abd: soft, midline incision with maria luisa Ext: no edema Skin: warm/well-perfused Neuro: alert and oriented x3, no focal findings Psych: appropriate affect Objective Data Active Medications Dicyclomine HCl (Dicyclomine Hcl 10 Mg Capsule) 10 mg PO BID PRN PRN Reason: Abdominal Discomfort Hydromorphone HCl (Hydromorphone Hcl 0.5 Mg/0.5 Ml Syringe) 0.5 mg IVPUSH Q3H PRN; Protocol PRN Reason: Pain, Severe (Pain Scale 7-10) Last Admin: 12/12/24 08:30 Dose: 0.5 mg Documented By: MANDI Acetaminophen (Ofirmev) 1,000 mg in 100 mls @ 400 mls/hr IV Q6H PRN PRN Reason: Pain, Mild (Pain Scale 1-3) Last Infusion: 12/11/24 11:58 Dose: Infused Documented By: KAITLIN Piperacillin Sod/Tazobactam (Sod 3.375 gm/ Sodium Chloride) 50 mls @ 100 mls/hr IV Q6H [facility] Last Infusion: 12/12/24 09:45 Dose: Infused Documented By: MANDI Loratadine (Loratadine 10 Mg Tablet) 10 mg PO DAILY [facility] Last Admin: 12/12/24 08:31 Dose: 10 mg Documented By: MANDI Metoclopramide HCl (Metoclopramide Hcl 10 Mg/2 Ml Vial) 10 mg IVPUSH Q6H PRN PRN Reason: Nausea and Vomiting Last Admin: 12/12/24 08:27 Dose: 10 mg Documented By: MANDI Omeprazole (Omeprazole 40 Mg Capsule.Dr) 40 mg PO DAILY@0630 [facility] Last Admin: 12/12/24 05:05 Dose: 40 mg Documented By: TANISHA Ondansetron HCl (Ondansetron Hcl 4 Mg/2 Ml Vial) 4 mg IVPUSH QID PRN PRN Reason: Nausea Last Admin: 12/12/24 02:34 Dose: 4 mg Documented By: TANISHA Oxycodone HCl (Oxycodone Hcl Immed Release 5 Mg Tablet) 5 mg PO Q6H PRN PRN Reason: Pain, Moderate(Pain Scale 4-6) Last Admin: 12/10/24 09:08 Dose: 5 mg Documented By: DEX Sodium Chloride (0.9 % Sodium Chloride Flush 3 Ml Syringe) 3 ml IVFLUSH [facility] Last Admin: 12/12/24 08:28 Dose: 3 ml Documented By: MANDI Zolpidem Tartrate (Zolpidem Tartrate 5 Mg Tablet) 5 mg PO BEDTIME PRN PRN Reason: Insomnia Last Admin: 12/10/24 21:53 Dose: 5 mg Documented By: TANISHA Labs 12/11/24 07:04 12/11/24 07:04 Microbiology Microbiology Results: Microbiology 12/09/24 21:06 Blood Culture - Preliminary Blood - Venous No growth after 48 hours. 12/09/24 13:52 Blood Culture - Preliminary Blood - Venous No growth after 48 hours. Assessment and Plan (1) Pneumonia: Status: Acute (2) Acute kidney injury: Status: Acute (3) S/P colon resection: Status: Acute Plan d6 for 64yo F with IBS, GERD and recurrent sigmoid diverticulitis with history of IR-guided drainage of LLQ abscess who is POD5 from elective hand-assisted laparoscopic sigmoid colectomy with colorectal anastomosis on 12/07/24; intraoperatively noted to have inflammation, phlegmon/abscess, and adhesions. Medicine consult requested for oliguria and worsening TAMERA; also noted to be dyspneic and tachycardic with abdominal distension. Acute medical issues have resolved. status post laparoscopic sigmoid colectomy with colorectal anastomosis on 12/07 - CT A/P showed body wall edema + moderate ascites but no bleeding or leak - postoperative abdominal distention improved; tolerating diet and having BMs - postop care as per Gen Surg TAMERA - creatinine normalized, off IV fluids and Landin - FENa 3.6% suggestive of intrinsic renal/tubular injury, likely due to anesthesia tachycardia and shortness of breath - likely due to pneumonia; WBCs normalized; BCx negative; V/Q without suspicion for PE - CT chest showed small bilateral pleural effusion and adjacent pneumonia - piperacillin-tazobactam started 12/09, change to amoxicillin-clavulanate today and continue for another 4d VTE ppx - SCDs, heparin when OK with surgery Total time managing care of this patient today: 35 minutes. Quality Stroke Does the patient have a stroke diagnosis?: No VTE Prior VTE?: No VTE Risk Level:: Surgical - moderate VTE Device Contraindication: N/A - Device Ordered VTE Drug Contraindication: Patient Refused
--- NOTE | 2024-12-12 10:15 | P.PNGS_ITS ---
Subjective Subjective Date of Service: 12/12/24 <Suri Chow PA-C - Last Filed: 12/12/24 10:23> 12/12/24 <Rogelio Portillo MD - Last Filed: 12/12/24 10:47> Interval history: Reports incisional pain with movement, still requiring IV dilaudid and oxycodone. Tolerating solid diet. Passing flatus and moving bowels, having some liquid stools. Denies shortness of breath, ambulating without difficulty, using incentive spirometer. <Suri Chow PA-C - Last Filed: 12/12/24 10:23> Physical Exam 2 Vital Signs: Vital Signs: Last Vital Signs Temp 97.9 F 12/12/24 06:00 Pulse 67 12/12/24 06:00 Resp 18 12/12/24 08:30 BP 129/72 12/12/24 06:00 Pulse Ox 94 12/12/24 06:00 O2 Del Method Room Air 12/12/24 06:00 O2 Flow Rate 2 12/10/24 05:30 BMI result Body Mass Index 28.3 <Suri Chow PA-C - Last Filed: 12/12/24 10:23> Const: General: comfortable, no acute distress and alert <HECTOR Mark Last Filed: 12/12/24 10:23> Orientation/consciousness: patient oriented x3 <Suri Chow PA-C - Last Filed: 12/12/24 10:23> Resp: Effort & Inspection: normal respiratory effort, able to speak in complete sentences, not tachypneic and no use of accessory muscles <Suri Chow PA-C - Last Filed: 12/12/24 10:23> GI: Inspection: Yes distended (mild) and Yes incision (clean) <HECTOR Mark Last Filed: 12/12/24 10:23> Palpation (GI): Soft to palpation, Tenderness to palpation present (GI) (mild incisional) and no guarding <HECTOR Mark Last Filed: 12/12/24 10:23> Skin: General skin exam: no rashes or lesions noted <Suri Chow PA-C - Last Filed: 12/12/24 10:23> Neuro: General: patient oriented x3 and moves all extremities <Suri Chow PA-C - Last Filed: 12/12/24 10:23> Objective Data Active Medications Amoxicillin/Clavulanate Potassium (Amoxicillin/Potassium Clav 875 Mg Tablet) 875 mg PO Q12H [facility] Dicyclomine HCl (Dicyclomine Hcl 10 Mg Capsule) 10 mg PO BID PRN PRN Reason: Abdominal Discomfort Hydromorphone HCl (Hydromorphone Hcl 0.5 Mg/0.5 Ml Syringe) 0.5 mg IVPUSH Q3H PRN; Protocol PRN Reason: Pain, Severe (Pain Scale 7-10) Last Admin: 12/12/24 08:30 Dose: 0.5 mg Documented By: MANDI Acetaminophen (Ofirmev) 1,000 mg in 100 mls @ 400 mls/hr IV Q6H PRN PRN Reason: Pain, Mild (Pain Scale 1-3) Last Infusion: 12/11/24 11:58 Dose: Infused Documented By: KAITLIN Loratadine (Loratadine 10 Mg Tablet) 10 mg PO DAILY [facility] Last Admin: 12/12/24 08:31 Dose: 10 mg Documented By: MANDI Metoclopramide HCl (Metoclopramide Hcl 10 Mg/2 Ml Vial) 10 mg IVPUSH Q6H PRN PRN Reason: Nausea and Vomiting Last Admin: 12/12/24 08:27 Dose: 10 mg Documented By: MANDI Omeprazole (Omeprazole 40 Mg Capsule.Dr) 40 mg PO DAILY@0630 [facility] Last Admin: 12/12/24 05:05 Dose: 40 mg Documented By: TANISHA Ondansetron HCl (Ondansetron Hcl 4 Mg/2 Ml Vial) 4 mg IVPUSH QID PRN PRN Reason: Nausea Last Admin: 12/12/24 02:34 Dose: 4 mg Documented By: TANISHA Oxycodone HCl (Oxycodone Hcl Immed Release 5 Mg Tablet) 5 mg PO Q6H PRN PRN Reason: Pain, Moderate(Pain Scale 4-6) Last Admin: 12/10/24 09:08 Dose: 5 mg Documented By: DEX Sodium Chloride (0.9 % Sodium Chloride Flush 3 Ml Syringe) 3 ml IVFLUSH QSHIFT [facility] Last Admin: 12/12/24 08:28 Dose: 3 ml Documented By: MANDI Zolpidem Tartrate (Zolpidem Tartrate 5 Mg Tablet) 5 mg PO BEDTIME PRN PRN Reason: Insomnia Last Admin: 12/10/24 21:53 Dose: 5 mg Documented By: TANISHA <Suri Chow PA-C - Last Filed: 12/12/24 10:23> Labs CBC & Chem 7: 12/11/24 07:04 12/11/24 07:04 <Suri Chow PA-C - Last Filed: 12/12/24 10:23> Microbiology Microbiology Results: Microbiology 12/09/24 21:06 Blood Culture - Preliminary Blood - Venous No growth after 48 hours. 12/09/24 13:52 Blood Culture - Preliminary Blood - Venous No growth after 48 hours. <Suri Chow PA-C - Last Filed: 12/12/24 10:23> Procedures Date of Service Date of Service: 12/12/24 <Suri Chow PA-C - Last Filed: 12/12/24 10:23> 12/12/24 <Rogelio Portillo MD - Last Filed: 12/12/24 10:47> Progress Note: A&P Assessment and plan (1) S/P colon resection: Status: Acute <Suri Chow PA-C - Last Filed: 12/12/24 10:23> Assessment and Plan: POD #5 s/p hand assisted laparoscopic sigmoid colectomy. Overall improved and tolerating solid diet with good GI function. VSS. Abd exam benign with clean incisions. TAMERA resolved. Now on augmentin for PNA. Incentive spirometer and increasing ambulation/activity discussed. Home when comfortable on oral analgesics, possibly tomorrow. Patient comfortable with plan. <Suri Chow PA-C - Last Filed: 12/12/24 10:23> POD #5 s/p hand assisted laparoscopic sigmoid colectomy. Overall improved and tolerating solid diet with good GI function. VSS. Abd exam benign with clean incisions. TAMERA resolved. Now on augmentin for PNA. Incentive spirometer and increasing ambulation/activity discussed. Home when comfortable on oral analgesics, possibly tomorrow. Patient comfortable with plan. <Rogelio Portillo MD - Last Filed: 12/12/24 10:47> Time Spent With Patient Time: Total time managing care of this patient today ____ minutes. <Suri Chow PA-C - Last Filed: 12/12/24 10:23> Quality Stroke Does the patient have a stroke diagnosis?: No <Suri Chow PA-C - Last Filed: 12/12/24 10:23> VTE Prior VTE?: No <Suri Chow PA-C - Last Filed: 12/12/24 10:23> VTE Risk Level:: Surgical - moderate <Suri Chow PA-C - Last Filed: 12/12/24 10:23> VTE Device Contraindication: N/A - Device Ordered <Suri Chow PA-C - Last Filed: 12/12/24 10:23> VTE Drug Contraindication: Patient Refused <Suri Chow PA-C - Last Filed: 12/12/24 10:23>
[2024-12-12] MEDS: Amoxicillin/Potassium Clav 875 MG TABLET PO ×2 (11:01→21:22)
[2024-12-12] MEDS: oxyCODONE HCl Immed Release 5 MG TABLET PO (11:01)
[2024-12-12] MEDS: oxyCODONE HCl Immed Release 5 MG TABLET 10 MG PO ×3 (12:14→21:21)
[2024-12-12 15:01] VITALS: BP 124/68; PULSE 82; RESP 16; TEMP 36.3; O2SAT 92
--- NOTE | 2024-12-12 16:31 | MHC.CM.PN ---
Patient is not medically cleared to discharge today. DP home no services private transport.
[2024-12-12 21:43] VITALS: BP 127/67; PULSE 84; RESP 16; TEMP 36.9; O2SAT 96
[2024-12-13] MEDS: oxyCODONE HCl Immed Release 5 MG TABLET PO ×2 (01:56→08:21)
[2024-12-13] MEDS: Fluconazole 150 MG TABLET PO (01:57)
[2024-12-13 05:55] VITALS: BP 121/64; PULSE 85; RESP 16; TEMP 36.8; O2SAT 93
[2024-12-13] MEDS: Omeprazole 40 MG CAPSULE.DR PO (06:38)
--- NOTE | 2024-12-13 07:13 | PM.PNGS ---
Subjective Subjective Date of Service: 12/13/24 Interval history: Beti is awake and feeling well, ambulating in room upon examiner entry. She states she has mild pain, which has been well-controlled with current regimen. She is tolerating solids and liquids without issue, and is ambulating to restroom. No dsypnea, chest pain or tightness, n/v. Last bowel movement this AM. No blood. Physical Exam Vital Signs: Vital Signs: Last Vital Signs Temp 98.2 F 12/13/24 05:55 Pulse 85 12/13/24 05:55 Resp 16 12/13/24 05:55 BP 121/64 12/13/24 05:55 Pulse Ox 93 12/13/24 05:55 O2 Del Method Room Air 12/13/24 05:55 O2 Flow Rate 2 12/10/24 05:30 BMI result Body Mass Index 28.3 Const: General: comfortable, no acute distress and Physically active Eyes: Sclerae: sclerae normal Pupils: Equal, round and reactive pupils present Resp: Effort & Inspection: normal respiratory effort and able to speak in complete sentences Cardio: Rate: regular rate Rhythm: regular rhythm Heart sounds: S1 normal heart sound present and S2 normal heart sound present Neuro: Cranial nerves: Yes Equal, round and reactive pupils present Objective Data Active Medications Amoxicillin/Clavulanate Potassium (Amoxicillin/Potassium Clav 875 Mg Tablet) 875 mg PO Q12H [facility] Last Admin: 12/12/24 21:22 Dose: 875 mg Documented By: CORTES Dicyclomine HCl (Dicyclomine Hcl 10 Mg Capsule) 10 mg PO BID PRN PRN Reason: Abdominal Discomfort Acetaminophen (Ofirmev) 1,000 mg in 100 mls @ 400 mls/hr IV Q6H PRN PRN Reason: Pain, Mild (Pain Scale 1-3) Last Infusion: 12/11/24 11:58 Dose: Infused Documented By: KAITLIN Loratadine (Loratadine 10 Mg Tablet) 10 mg PO DAILY [facility] Last Admin: 12/12/24 08:31 Dose: 10 mg Documented By: MANDI Metoclopramide HCl (Metoclopramide Hcl 10 Mg/2 Ml Vial) 10 mg IVPUSH Q6H PRN PRN Reason: Nausea and Vomiting Last Admin: 12/12/24 20:08 Dose: 10 mg Documented By: CORTES Omeprazole (Omeprazole 40 Mg Capsule.) 40 mg PO DAILY@0630 [facility] Last Admin: 12/13/24 06:38 Dose: 40 mg Documented By: CORTES Ondansetron HCl (Ondansetron Hcl 4 Mg/2 Ml Vial) 4 mg IVPUSH QID PRN PRN Reason: Nausea Last Admin: 12/12/24 11:05 Dose: 4 mg Documented By: MANDI Oxycodone HCl (Oxycodone Hcl Immed Release 5 Mg Tablet) 5 mg PO Q6H PRN PRN Reason: Pain, Moderate(Pain Scale 4-6) Last Admin: 12/13/24 01:56 Dose: 5 mg Documented By: CORTES Oxycodone HCl (Oxycodone Hcl Immed Release 5 Mg Tablet) 10 mg PO Q6H PRN PRN Reason: Pain, Severe (Pain Scale 7-10) Last Admin: 12/12/24 21:21 Dose: 5 mg Documented By: CORTES Comments: second 5mg dose Sodium Chloride (0.9 % Sodium Chloride Flush 3 Ml Syringe) 3 ml [facility] Last Admin: 12/12/24 20:11 Dose: 3 ml Documented By: CORTES Zolpidem Tartrate (Zolpidem Tartrate 5 Mg Tablet) 5 mg PO BEDTIME PRN PRN Reason: Insomnia Last Admin: 12/10/24 21:53 Dose: 5 mg Documented By: TANISHA Labs 12/11/24 07:04 12/11/24 07:04 Procedures Date of Service Date of Service: 12/13/24 Progress Note: A&P Assessment and plan Plan Beti is POD 7 from hand assisted colonic resection with subsequent anastamosis c/w PNA. Doing well on exam today. Plan for discharge today. S/p colonic resection -ambulating well, able to evacuate bowels spontaneously. PNA -continue current regimen of augmentin daily for 4 days. -s/p piperacillin-tazobactam started 12/09 TAMERA (resolved) -Cr return to baseline, with good urine output. Pain Management -moderate pain on exam today. -required 2 doses of 5 mg PO oxycodone overnight. Time Spent With Patient Time: Total time managing care of this patient today ____ minutes. Quality Stroke Does the patient have a stroke diagnosis?: No VTE Prior VTE?: No VTE Risk Level:: Surgical - moderate VTE Device Contraindication: N/A - Device Ordered VTE Drug Contraindication: Patient Refused
[2024-12-13] MEDS: 0.9 % Sodium Chloride Flush 3 ML SYRINGE IVFLUSH (07:19)
[2024-12-13 07:43] VITALS: BP 133/76; PULSE 103; RESP 18; TEMP 36; O2SAT 96
--- NOTE | 2024-12-13 08:09 | P.PNGS_ITS ---
Subjective Subjective Date of Service: 12/13/24 Interval history: Patient feels much improved. Reports some incisional pain but well covered with the oral pain medication. She would like to go home Physical Exam 2 Vital Signs: Vital Signs: Last Vital Signs Temp 96.8 F 12/13/24 07:43 Pulse 103 H 12/13/24 07:43 Resp 18 12/13/24 07:43 BP 133/76 12/13/24 07:43 Pulse Ox 96 12/13/24 07:43 O2 Del Method Room Air 12/13/24 07:43 O2 Flow Rate 2 12/10/24 05:30 BMI result Body Mass Index 28.3 Const: General: no acute distress Nutritional Appearance: well nourished Orientation/consciousness: patient oriented x3 Limitations: no limitations Resp: Effort & Inspection: normal respiratory effort GI: Other: Midline incision clean and intact. A light pink color of the apex of the incision but no fluctuance. Trocar incisions clean and intact. Neuro: General: patient oriented x3 Extrem: General: Yes no clubbing, cyanosis or edema Objective Data Active Medications Amoxicillin/Clavulanate Potassium (Amoxicillin/Potassium Clav 875 Mg Tablet) 875 mg PO Q12H [facility] Last Admin: 12/12/24 21:22 Dose: 875 mg Documented By: CORTES Dicyclomine HCl (Dicyclomine Hcl 10 Mg Capsule) 10 mg PO BID PRN PRN Reason: Abdominal Discomfort Acetaminophen (Ofirmev) 1,000 mg in 100 mls @ 400 mls/hr IV Q6H PRN PRN Reason: Pain, Mild (Pain Scale 1-3) Last Infusion: 12/11/24 11:58 Dose: Infused Documented By: KAITLIN Loratadine (Loratadine 10 Mg Tablet) 10 mg PO DAILY [facility] Last Admin: 12/12/24 08:31 Dose: 10 mg Documented By: MANDI Metoclopramide HCl (Metoclopramide Hcl 10 Mg/2 Ml Vial) 10 mg IVPUSH Q6H PRN PRN Reason: Nausea and Vomiting Last Admin: 12/12/24 20:08 Dose: 10 mg Documented By: CORTES Omeprazole (Omeprazole 40 Mg Capsule.) 40 mg PO DAILY@0630 [facility] Last Admin: 12/13/24 06:38 Dose: 40 mg Documented By: CORTES Ondansetron HCl (Ondansetron Hcl 4 Mg/2 Ml Vial) 4 mg IVPUSH QID PRN PRN Reason: Nausea Last Admin: 12/12/24 11:05 Dose: 4 mg Documented By: MANDI Oxycodone HCl (Oxycodone Hcl Immed Release 5 Mg Tablet) 5 mg PO Q6H PRN PRN Reason: Pain, Moderate(Pain Scale 4-6) Last Admin: 12/13/24 01:56 Dose: 5 mg Documented By: CORTES Oxycodone HCl (Oxycodone Hcl Immed Release 5 Mg Tablet) 10 mg PO Q6H PRN PRN Reason: Pain, Severe (Pain Scale 7-10) Last Admin: 12/12/24 21:21 Dose: 5 mg Documented By: CORTES Comments: second 5mg dose Sodium Chloride (0.9 % Sodium Chloride Flush 3 Ml Syringe) 3 ml IVFLUSH QSHIFT [facility] Last Admin: 12/13/24 07:19 Dose: 3 ml Documented By: MANDI Zolpidem Tartrate (Zolpidem Tartrate 5 Mg Tablet) 5 mg PO BEDTIME PRN PRN Reason: Insomnia Last Admin: 12/10/24 21:53 Dose: 5 mg Documented By: TANISHA Labs 12/11/24 07:04 12/11/24 07:04 Procedures Date of Service Date of Service: 12/13/24 Progress Note: A&P Assessment and plan (1) S/P colon resection: Status: Acute Plan POD #6 s/p hand assisted laparoscopic sigmoid colectomy. She feels much improved and is tolerating regular diet with good GI function. Urine is much improved as well. She feels ready for discharge. We will follow up in approximately 1 week for wound check and staple removal. She is welcome to call sooner for any new concerns. Time Spent With Patient Time: Total time managing care of this patient today ____ minutes. Quality Stroke Does the patient have a stroke diagnosis?: No VTE Prior VTE?: No VTE Risk Level:: Surgical - moderate VTE Device Contraindication: N/A - Device Ordered VTE Drug Contraindication: Patient Refused
[2024-12-13] MEDS: Loratadine 10 MG TABLET PO (08:21)
--- NOTE | 2024-12-13 09:14 | HO.PM.IMPN ---
Subjective Subjective Date of Service: 12/13/24 Interval History: tolerating diet, having BMs, pain controlled Review of Systems Review of Systems: Yes all other systems are reviewed and are negative Physical Exam Vital Signs: Vital Signs: Last Vital Signs Temp 96.8 F 12/13/24 07:43 Pulse 103 H 12/13/24 07:43 Resp 18 12/13/24 07:43 BP 133/76 12/13/24 07:43 Pulse Ox 96 12/13/24 07:43 O2 Del Method Room Air 12/13/24 07:43 O2 Flow Rate 2 12/10/24 05:30 BMI result Body Mass Index 28.3 Gen: in no acute distress HEENT: sclera anicteric, moist mucus membranes Neck: supple Lungs: clear to auscultation bilaterally Heart: regular rate and rhythm, no murmurs Abd: soft, midline incision with maria luisa and minimal faint erythema Ext: no edema Skin: warm/well-perfused Neuro: alert and oriented x3, no focal findings Psych: appropriate affect Objective Data Active Medications Amoxicillin/Clavulanate Potassium (Amoxicillin/Potassium Clav 875 Mg Tablet) 875 mg PO Q12H [facility] Last Admin: 12/12/24 21:22 Dose: 875 mg Documented By: CORTES Dicyclomine HCl (Dicyclomine Hcl 10 Mg Capsule) 10 mg PO BID PRN PRN Reason: Abdominal Discomfort Acetaminophen (Ofirmev) 1,000 mg in 100 mls @ 400 mls/hr IV Q6H PRN PRN Reason: Pain, Mild (Pain Scale 1-3) Last Infusion: 12/11/24 11:58 Dose: Infused Documented By: KAITLIN Loratadine (Loratadine 10 Mg Tablet) 10 mg PO DAILY [facility] Last Admin: 12/13/24 08:21 Dose: 10 mg Documented By: MANDI Metoclopramide HCl (Metoclopramide Hcl 10 Mg/2 Ml Vial) 10 mg IVPUSH Q6H PRN PRN Reason: Nausea and Vomiting Last Admin: 12/12/24 20:08 Dose: 10 mg Documented By: CORTES Omeprazole (Omeprazole 40 Mg Capsule.) 40 mg PO DAILY@0630 [facility] Last Admin: 12/13/24 06:38 Dose: 40 mg Documented By: CORTES Ondansetron HCl (Ondansetron Hcl 4 Mg/2 Ml Vial) 4 mg IVPUSH QID PRN PRN Reason: Nausea Last Admin: 12/12/24 11:05 Dose: 4 mg Documented By: MANDI Oxycodone HCl (Oxycodone Hcl Immed Release 5 Mg Tablet) 5 mg PO Q6H PRN PRN Reason: Pain, Moderate(Pain Scale 4-6) Last Admin: 12/13/24 08:21 Dose: 5 mg Documented By: MANDI Oxycodone HCl (Oxycodone Hcl Immed Release 5 Mg Tablet) 10 mg PO Q6H PRN PRN Reason: Pain, Severe (Pain Scale 7-10) Last Admin: 12/12/24 21:21 Dose: 5 mg Documented By: CORTES Comments: second 5mg dose Sodium Chloride (0.9 % Sodium Chloride Flush 3 Ml Syringe) 3 ml IVFLUSH QSHIFT JUAN CARLOS Last Admin: 12/13/24 07:19 Dose: 3 ml Documented By: MANDI Zolpidem Tartrate (Zolpidem Tartrate 5 Mg Tablet) 5 mg PO BEDTIME PRN PRN Reason: Insomnia Last Admin: 12/10/24 21:53 Dose: 5 mg Documented By: TANISHA Labs 12/11/24 07:04 12/11/24 07:04 Assessment and Plan (1) Pneumonia: Status: Acute (2) Acute kidney injury: Status: Acute (3) S/P colon resection: Status: Acute Plan d7 for 64yo F with IBS, GERD and recurrent sigmoid diverticulitis with history of IR-guided drainage of LLQ abscess who is POD5 from elective hand-assisted laparoscopic sigmoid colectomy with colorectal anastomosis on 12/07/24; intraoperatively noted to have inflammation, phlegmon/abscess, and adhesions. Medicine consult requested for oliguria and worsening TAMERA; also noted to be dyspneic and tachycardic with abdominal distension. Acute medical issues have resolved. status post laparoscopic sigmoid colectomy with colorectal anastomosis on 12/07 - CT A/P showed body wall edema + moderate ascites but no bleeding or leak - postoperative abdominal distention improved; tolerating diet and having BMs - postop care as per Gen Surg TAMERA - creatinine normalized, off IV fluids and Landin - FENa 3.6% suggestive of intrinsic renal/tubular injury, likely due to anesthesia tachycardia and shortness of breath - likely due to pneumonia; WBCs normalized; BCx negative; V/Q without suspicion for PE - CT chest showed small bilateral pleural effusion and adjacent pneumonia - piperacillin-tazobactam started 12/09, changed to amoxicillin-clavulanate 12/12 and continue for another 3d VTE ppx - SCDs, heparin when OK with surgery Thank you for this consultation. We are signing off the case at this time. Please communicate with us if any new medical questions arise. Total time managing care of this patient today: 35 minutes. Quality Stroke Does the patient have a stroke diagnosis?: No VTE Prior VTE?: No VTE Risk Level:: Surgical - moderate VTE Device Contraindication: N/A - Device Ordered VTE Drug Contraindication: Patient Refused
[2024-12-13] MEDS: Amoxicillin/Potassium Clav 875 MG TABLET PO (10:22)
--- NOTE | 2024-12-13 10:31 | P.DS_ITS ---
DS: Providers Provider Date of Service: 12/13/24 Date of admission: 12/07/24 08:09 Date of discharge: 12/13/24 Primary care physician: Carmencita Rangel MD Consults: 12/09/24 07:31 Consult to Hospitalist Routine Comment: Consulting Provider: [facility] Reason For Exam: TAMERA s/p sigmoid colectomy 12/09/24 08:02 Consult to Nephrology Routine Consulting Provider: [facility] Reason for consultation: TAMERA, met acidosis DS: Diagnosis Discharge Diagnosis (1) Pneumonia: Status: Acute (2) Acute kidney injury: Status: Acute (3) S/P colon resection: Status: Acute DS: Summary Hospital Course Hospital Course: HPI AT ADMISSION: 64-year-old female patient with a long history of sigmoid diverticulitis with multiple infections including an abscess in the left lower lower quadrant required IR drainage. She presents now for elective sigmoid colectomy. HOSPITAL COURSE: On 12/07/24, Hand assisted laparoscopic sigmoid colectomy with colorectal anastomosis was performed by Dr. Portillo without immediate complications. Intraoperative findings included marked inflammatory reaction involving the sigmoid with a tortuous bowel in the pelvis, dense phlegmon abscess was identified in the left lower quadrant with adherent colon to the pelvic sidewall and dense pelvic adhesions. Patient tolerated the procedure well and was admitted to the medical/surgical floor for observation. She had a slow recovery course. Her suárez was removed at patient request overnight on POD #0. She had difficult voiding the following day but was making some urine with low PVR. She was on continuous IVF and was bolused. Her BUN/Cr continued to rise on POD #2 and was oliguric and therefore renal US were obtained and hospitalist consult. Suárez catheter was reinserted. Renal US was normal without hydronephrosis. She became tachycardic and therefore b/l LE venous duplex US and V/Q scan obtained which were negative for PE. CXR showed LLL atelecatasis versus pneumonia and she was started on IV zosyn empirically. CT scan abd/pelvis showed some free fluid, urine in bladder, no hydronephrosis, and intact anastomosis in pelvis without free air, abscess or blood. CT chest showed b/l pleural effusions with PNA. Nephrology was consulted for the TAMERA who felt it was due to tubular injury and continue with IV fluids/ supportive care. She was ambulated and her activity increased. Her renal function and UOP improved. Her Cr/BUN returned to baseline. Her suárez was eventually removed. She was tolerating clear liquids and began to pass flatus and moving her bowels. Her diet was advanced to solids. She was transitioned to oral amoxicillin- clavulanate with plan to continue for another 4d. On POD #6, the day of discharge, she was tolerating a solid diet without nausea or vomiting, had good GI function, was comfortable on oral analgesics and was ambulating without difficulty. She had no respiratory symptoms. She was voiding on her own. She was hemodynamically stable. Her abdomen was benign with clean incision and intact maria luisa. She felt ready for discharge. She was discharged to home on 12/13/24 in stable condition. She is to follow up in the office in 1 week. She was discharged on a short oral course of Augmentin. Status at Discharge Functional status at discharge: independent ambulation Overall status at discharge: patient is progressing back to baseline Time Attestation Discharge Coordination Time (in mins): 45 Quality: Safe Use of Opioids Does Pt have an Active Cancer Diagnosis on the Problem List?: No Quality: Stroke Does the patient have a stroke diagnosis?: No Physical Exam Vital Signs: Vital Signs: Last Vital Signs Temp 98.2 F 12/13/24 10:50 Pulse 99 12/13/24 10:50 Resp 18 12/13/24 10:50 BP 149/62 H 12/13/24 10:50 Pulse Ox 95 12/13/24 10:50 O2 Del Method Room Air 12/13/24 10:50 O2 Flow Rate 2 12/10/24 05:30 BMI result Body Mass Index 28.3 Const: General: cooperative, comfortable, no acute distress and alert Orientation/consciousness: patient oriented x3 Resp: Effort & Inspection: normal respiratory effort, not labored and not tachypneic GI: Other: maria luisa intact, some erythema at umbilicus well above incision, appears to be mild irritation from tape, actual incision without erythema Inspection: No distended Palpation (GI): Soft to palpation, Tenderness to palpation present (GI) (mild incisional) and no guarding Skin: General skin exam: no rashes or lesions noted Neuro: General: patient oriented x3 and moves all extremities DS: Data Data Completed and Pending Completed studies during hospitalization [Text1]: 12/07/24 15:00 Surgical [PTH] Routine A. Colon, sigmoid, segmental resection: - Complicated diverticular disease with abscess formation, granulation tissue, foreign body giant cells and adherent fallopian tube and ovary. - Ovary with acute inflammation and foreign body giant cell reaction. - Serositis and serosal adhesions. B. Colon, anastomotic donuts, excision: Two annular portions of colonic mucosa and wall within normal limits. Procedures Drainage of Pelvic Cavity with Drainage Device, Percutaneous Approach (09/01/24) Discharge Plan Discharge Anticipated Discharge Date/Time: 12/13/24 15:50 Patient Disposition: Home, Self-Care Discharge Diagnosis: Diverticulitis sigmoid colon Referrals: Rogelio Portillo MD [Physician] - 1 Week Po,Carmencita Banuelos MD [Primary Care Provider] - 1 Week Discharge Medications: New ondansetron HCl 4 mg tablet 4 mg PO Q8H PRN (Reason: nausea and vomiting) Qty: 25 1RF amoxicillin-pot clavulanate 875-125 mg tablet 1 tab PO BID Qty: 6 0RF oxycodone 5 mg tablet 5 mg PO Q6H PRN (Reason: pain (scale score 7-10)) Qty: 30 0RF Rx Instructions: Partial Fill upon patient request. Continued fexofenadine 180 mg Tablet 180 mg PO DAILY dicyclomine 10 mg capsule 10 mg PO BID PRN (Reason: Abdominal Discomfort) omeprazole 40 mg Capsule,Delayed Release(Dr/Ec) 40 mg PO DAILY Culturelle 10 billion cell Capsule 1 cap PO DAILY Discharge Orders: Discharge Order (Routine); Ordered 12/13/24 Ordered By: Rogelio Portillo Diet: Advance to usual diet Activity on Discharge: No heavy lifting Stand Alone Forms: Patient Portal Discharge page Print Language: Persian Activity Restrictions/Additional Instructions: If the incision area is tender, you may apply an ice pack for short intervals (No more than 20 minutes on, followed by at least 20 minutes off). Do not apply heat. Do not use creams, lotions, or topical antibiotics. These can cause i nfection or allergic reaction. Ok to shower. You have maria luisa closing your incision and these will be removed approximately 10-14 days after surgery. NO HEAVY LIFTING (>10lbs) or strenuous activity. Follow up in office in 1 week. ([phone]) Call Your Doctor If: -Your temperature exceeds 101.5? F -You experience excessive pain or swelling -You have an unexpected reaction to medication -You have excessive bleeding -You experience continued vomiting/nausea -Your incision begins to separate -Your incision shows signs of infection such as increased redness, s welling, excessive pain, drainage (light blood or clear fluid is normal) or heat Care Plan Goals: Return to baseline health and resume normal activities following recovery per iod. Health Concerns: diverticulitis with abscess TAMERA atelectasis, pneumonia Plan of Treatment: s/p sigmoid resection IV transitioned to oral abx f/u in office in 1 week f/u with PCP Assessment: Stable Discharge Date/Time: 12/13/24 11:02
[2024-12-13 10:50] VITALS: BP 149/62; PULSE 99; RESP 18; TEMP 36.8; O2SAT 95
--- NOTE | 2024-12-13 10:57 | MHC.CM.PN ---
DP home self care. Patient arranged for private transport home.
== END 2024-12-13 11:02 | disposition home or self-care (01) | DRG 223 ==
LOC: HO.SSSA 08:10 → HO.S3 11:48
PROVIDERS: Family Medicine; Hospitalist; Internal Medicine; Nurse Practitioner; Physician Assistant Surgical; Admitting Provider Surgery; PCP Internal Medicine; Visit Provider Surgery
PROC: 0DTE0ZZ Resection of Large Intestine, Open Approach (ICD-10-PCS; principal; 2024-12-07 09:30)
DX: K57.20 Diverticulitis of large intestine with perforation and abscess without bleeding (principal); N17.9 Acute kidney failure, unspecified; J98.11 Atelectasis; Q43.8 Other specified congenital malformations of intestine; G89.18 Other acute postprocedural pain; R31.0 Gross hematuria; T41.205A Adverse effect of unspecified general anesthetics, initial encounter; Z20.822 Contact with and (suspected) exposure to COVID-19; Z79.899 Other long term (current) drug therapy
CPT/HCPCS: 0241U; 36415; 36600; 71045; 71250; 74176; 76775; 78580; 80048; 81001; 82570; 82803; 83036; 83605; 83880; 84145; 84300; 84484; 85025; 85027; 86850; 86900; 86901; 87040; 88305; 88307; 93005; 93970; A9540; J0131; J1100; J1171; J2003; J2250; J2405; J2543; J2704; J2765; J3010; J7120

== ENCOUNTER 2024-12-07 08:09 | Outpatient (BNV) | payer OTHER, SELFPAY | END 2024-12-09 09:45 | PROVIDERS: Admitting Provider Surgery; PCP Internal Medicine; Visit Provider Radiology Diagnostic Radiology | DX: R14.0 Abdominal distension (gaseous) (principal); N17.9 Acute kidney failure, unspecified; J96.01 Acute respiratory failure with hypoxia; R06.02 Shortness of breath | CPT/HCPCS: 71045; 71250; 74176; 76775; 78580; 93970 ==

== ENCOUNTER → 2024-12-07 08:09 | Outpatient (BNV) | payer OTHER, SELFPAY | PROVIDERS: Admitting Provider Surgery; PCP Internal Medicine; Visit Provider Family Medicine | DX: J18.9 Pneumonia, unspecified organism (principal); N17.9 Acute kidney failure, unspecified; Z90.49 Acquired absence of other specified parts of digestive tract | CPT/HCPCS: 99232; 99233 ==

== ENCOUNTER → 2024-12-07 08:09 | Outpatient (BNV) | payer OTHER, SELFPAY | PROVIDERS: Admitting Provider Surgery; PCP Internal Medicine; Visit Provider Internal Medicine Nephrology | DX: N17.9 Acute kidney failure, unspecified (principal) | CPT/HCPCS: 99223 ==

== ENCOUNTER → 2024-12-07 08:09 | Outpatient (BNV) | payer OTHER, SELFPAY | PROVIDERS: Admitting Provider Surgery; PCP Internal Medicine; Visit Provider Surgery | DX: N17.9 Acute kidney failure, unspecified (principal); K57.20 Diverticulitis of large intestine with perforation and abscess without bleeding; Z90.49 Acquired absence of other specified parts of digestive tract | CPT/HCPCS: 44204; 99024; 99499 ==

== ENCOUNTER 2024-12-23 09:34 | Outpatient (AMB) | payer OTHER, SELFPAY ==
--- NOTE | 2024-12-23 09:39 | A.OFFVIS_ITS ---
Vital Signs 12/23/24 09:47 Height 5 ft 5 in Weight 169 lb 15.975 oz BMI 28.3 Respiration 18 Pulse 96 Intake Visit Reasons: S/P MARY, laparoscopic sigmoid colectomy Intake Note: Patient is seen in office for post op assessment post laparoscopic sigmoid colectomy with colorectal anastomosis. Pt c/o: admits to increase pain and tender, denies any other concerns surgery:12/07/24 Attending Urologist Required: No Accompanied by: Self / Same As Patient Allergies gluten Allergy (Severe, Verified 12/23/24 09:47) Gastrointestinal Upset metronidazole [From Flagyl] Allergy (Severe, Verified 12/23/24 09:47) Elevated liver enzymes Penicillins [PENICILLINS] Allergy (Unknown, Verified 12/23/24 09:47) Hives, in childhood prochlorperazine [From Compazine] Allergy (Unknown, Verified 12/23/24 09:47) IV tardive dyskinsia levofloxacin [From Levaquin] Adverse Reaction (Severe, Verified 12/23/24 09:47) elevated LFTs sulfacetamide Adverse Reaction (Unknown, Verified 12/23/24 09:47) swelling in eyes, eyes drops only HPI Comments Details: 64-year-old female patient returning approximately 2 weeks following hand assisted laparoscopic sigmoid colectomy. She complains mainly of incisional soreness but is getting out and walking on a daily basis. He denies nausea, vomiting, fever or chills. Her bowels are great and occur 1-2 times daily. These are soft formed stools with no blood. [facility] Medical History Pneumonia IBS (irritable bowel syndrome) Slow to wake up after anesthesia History of duodenal ulcer Diverticulosis Chronic diarrhea Cervical cancer (~08/2018) CTS (carpal tunnel syndrome) Peptic ulcer disease (~2004) Allergic rhinitis GERD (gastroesophageal reflux disease) Surgical History Hx of colectomy (12/07/24) Hx of hand surgery (2023) Hx of endoscopy History of colonoscopy S/P bilateral breast reduction (~07/2019) S/P appendectomy H/O: hysterectomy Family History Father Family history of Alzheimer's disease Mother History of high blood pressure History of depression Social History Household Members: Family Household Members Other:: brother Housing: House Are you a primary coronary care unit nurse to a significant other at home: Yes (brother age 65) Do you presently have visiting nurse or other home services: No 75 years or older and lives alone: No Alcohol intake: current Alcohol intake frequency: does not drink Patient Tobacco Use Status: Never used Tobacco e-Cigarette/Vaping Use: Never Used Second Hand Smoke Exposure: Yes service: No Current occupational status: 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 Hearing needs: No Vision needs: No Female Reproductive History Menstrual Age of Menarche: 10 Physical Exam Vital Signs: Last Vital Signs Pulse 96 12/23/24 09:47 Resp 18 12/23/24 09:47 BMI result Body Mass Index 28.3 Const General: no acute distress Nutritional Appearance: well nourished Orientation/consciousness: patient oriented x3 Limitations: no limitations Resp Effort & Inspection: normal respiratory effort GI Other: Trocar and lower midline incision is clean, dry, and intact without redness or discharge. Maninder removed and wounds found to be well healed. No hernia appreciated. Neuro General: patient oriented x3 Extrem General: Yes no clubbing, cyanosis or edema Assessment & Plan Assessment & Plan (1) S/P colon resection: Comment: November 2024 Code(s): Z90.49 - Acquired absence of other specified parts of digestive tract Category: Surgical Plan 64-year-old female patient status post hand assisted laparoscopic sigmoid colectomy for sigmoid diverticulitis. She was much improved, tolerating a diet without nausea or vomiting. Her bowels are normal as well. Wounds are clean, dry and intact. [place] were removed today and the wounds found to be well healed. She should continue to avoid lifting greater than 10 lb and return in approximately 1 month for wound examination. I recommended she slowly back off the pain medication over the next week. She expressed understanding and agrees with the plan. Coding Level of Care Code Global (71819) Diagnoses S/P colon resection Z90.49
[2024-12-23 09:47] VITALS: PULSE 96; RESP 18; BMI 28.3
== END 2024-12-23 09:59 | disposition home or self-care (01) ==
LOC: HO.HGS 09:35
PROVIDERS: PCP Internal Medicine; Visit Provider Surgery
DX: Z90.49 Acquired absence of other specified parts of digestive tract (principal)
CPT/HCPCS: 99024

== ENCOUNTER → 2024-12-23 09:34 | Outpatient (BNVA) | payer OTHER, SELFPAY ==
--- NOTE | 2024-12-25 14:20 | PM.EVENT ---
Event Note Date of Service: 12/25/24 Event Note: plumbing manager note Patient called to state she has dysuria and frequency of urination Says she has a history of UTIs and gets Bactrim for this She asked for prescription for Bactrim Rx sent to her pharmacy in [place] Time Spent With Patient Time: Total time managing care of this patient today ____ minutes.
== END ==
PROVIDERS: PCP Internal Medicine; Visit Provider Surgery
DX: Z90.49 Acquired absence of other specified parts of digestive tract (principal)
CPT/HCPCS: 99212; 99499

== ENCOUNTER 2025-01-24 12:48 | Outpatient (AMB) | payer OTHER, SELFPAY ==
--- NOTE | 2025-01-24 12:59 | A.OFFVIS_ITS ---
Vital Signs 01/24/25 13:04 Height 5 ft 5 in Weight 178 lb BMI 29.6 BP 155/74 H Blood Pressure Location Lt brachial Position Sitting Pulse 74 Intake Visit Reasons: 1 mth f/u S/P MAYR, laparoscopic sigmoid colectomy Intake Note: Patient is seen in office for one month follow up visit, post laparoscopic sigmoid colectomy with colorectal anastomosis. Pt c/o: denies any concenrs, healing as expected Clinical Laboratory Assistant Required: No Accompanied by: Self / Same As Patient Allergies gluten Allergy (Severe, Verified 12/23/24 09:47) Gastrointestinal Upset metronidazole [From Flagyl] Allergy (Severe, Verified 12/23/24 09:47) Elevated liver enzymes Penicillins [PENICILLINS] Allergy (Unknown, Verified 12/23/24 09:47) Hives, in childhood prochlorperazine [From Compazine] Allergy (Unknown, Verified 12/23/24 09:47) IV tardive dyskinsia levofloxacin [From Levaquin] Adverse Reaction (Severe, Verified 12/23/24 09:47) elevated LFTs sulfacetamide Adverse Reaction (Unknown, Verified 12/23/24 09:47) swelling in eyes, eyes drops only HPI Comments Details: Patient returns 1 month following hand assisted laparoscopic sigmoid colectomy with colorectal anastomosis. General she is feeling much improved with regular bowel movements and without significant abdominal pain, nausea or vomiting. She is starting to feel back to normal. Denies any fever or chills. [facility] Medical History Pneumonia IBS (irritable bowel syndrome) Slow to wake up after anesthesia History of duodenal ulcer Diverticulosis Chronic diarrhea Cervical cancer (~08/2018) CTS (carpal tunnel syndrome) Peptic ulcer disease (~2004) Allergic rhinitis GERD (gastroesophageal reflux disease) Surgical History Hx of colectomy (12/07/24) Hx of hand surgery (2023) Hx of endoscopy History of colonoscopy S/P bilateral breast reduction (~07/2019) S/P appendectomy H/O: hysterectomy Family History Father Family history of Alzheimer's disease Mother History of high blood pressure History of depression Social History Household Members: Family Household Members Other:: brother Housing: House Are you a primary eye care professional to a significant other at home: Yes (brother age 65) Do you presently have visiting nurse or other home services: No 75 years or older and lives alone: No Alcohol intake: current Alcohol intake frequency: does not drink Patient Tobacco Use Status: Never used Tobacco e-Cigarette/Vaping Use: Never Used Second Hand Smoke Exposure: Yes service: No Current occupational status: 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 Hearing needs: No Vision needs: No Female Reproductive History Menstrual Age of Menarche: 10 Physical Exam Vital Signs: Last Vital Signs Pulse 74 01/24/25 13:04 BP 155/74 H 01/24/25 13:04 BMI result Body Mass Index 29.6 Const General: no acute distress Nutritional Appearance: well nourished Orientation/consciousness: patient oriented x3 Limitations: no limitations Resp Effort & Inspection: normal respiratory effort GI Other: Trocar and lower midline incision is clean, dry, and intact without redness or discharge. No tenderness or hernias to palpation. Skin Other: Warm, dry, no rashes Neuro General: patient oriented x3 Extrem General: Yes no clubbing, cyanosis or edema Assessment & Plan Assessment & Plan (1) S/P colon resection: Comment: November 2024 Code(s): Z90.49 - Acquired absence of other specified parts of digestive tract Category: Surgical Plan 64-year-old female patient status post hand assisted laparoscopic sigmoid colectomy for sigmoid diverticulitis. Overall she is much improved with regular bowel movements without nausea or vomiting. She does have some urinary symptoms and issues with vaginal yeast which is now improved. Examination reveals her incisions to be well healed without evidence of infection or hernia. She may resume normal activity without restrictions. She should follow up as needed. Coding Level of Care Code Global (47180) Diagnoses S/P colon resection Z90.49
[2025-01-24 13:04] VITALS: BP 155/74; PULSE 74; BMI 29.6
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
== END 2025-01-24 13:35 | disposition home or self-care (01) ==
LOC: HO.HGS 12:49
PROVIDERS: PCP Internal Medicine; Visit Provider Surgery
DX: Z90.49 Acquired absence of other specified parts of digestive tract (principal)
CPT/HCPCS: 99024

== ENCOUNTER → 2025-01-24 12:48 | Outpatient (BNVA) | payer OTHER, SELFPAY | PROVIDERS: PCP Internal Medicine; Visit Provider Surgery | DX: Z48.815 Encounter for surgical aftercare following surgery on the digestive system (principal); Z90.49 Acquired absence of other specified parts of digestive tract | CPT/HCPCS: 99212 ==